=== PATIENT | female | born 1935 | race Hispanic/Latino ===

== ENCOUNTER 2017-04-10 14:33 | Emergency (ER) | payer MEDICAID, MEDICARE, OTHER ==
[2017-04-10 15:26] LABS: #Eosinphils 0.2 thou/uL (0.0-0.7); #Lymphocytes 1.3 thou/uL (1.20-3.40); #Monocytes 0.7 thou/uL (0.11-0.59); #Neutrophils 9.1 thou/uL (1.40-6.50); %Basophils 0.2 % (0.0-1.0); %Eosinophils 1.7 % (0.0-10.0); %Lymphocytes 11.4 % (21.0-51.0); %Monocytes 5.9 % (0.0-10.0); Hematocrit 35.8 % (36.0-47.0); Mean Platelet Volume 7.6 fL (7.4-10.4); Red Blood Cell (RBC) Count 3.94 mill/uL (4.20-5.40); White Blood Cell (WBC) Count 11.2 thou/uL (4.8-10.8)
[2017-04-10 15:46] LABS: ALT (SGPT) 13 U/L (8-55); AST (SGOT) 20 U/L (5-34); Alkaline Phosphatase 99 U/L (40-150); Anion Gap 13 mmol/L (10-20); BUN (Urea Nitrogen) 35 mg/dL (9.8-20.1); Bilirubin, Total 0.4 mg/dL (0.2-1.2); CK (CPK) 87 U/L (29-168); Calc. Creatinine Clearance 0 mL/min (70-130); Carbon Dioxide 30 mmol/L (23-31); Chloride 102 mmol/L (98-107); Estimated GFR-MDRD 27; Globulin 3.7 g/dL (2.4-3.5); Protein, Total 6.9 g/dL (6.0-8.3)
[2017-04-10 15:52] LABS: Acetaminophen Less than 6.0 mcg/mL (10.0-30.0); Salicylate Less than 8.0 mg/dL (15.0-30.0)
== END 2017-04-10 18:26 | disposition home or self-care (01) ==
LOC: ERS 14:33
DX: F34.1 Dysthymic disorder (principal); I11.0 Hypertensive heart disease with heart failure; I50.9 Heart failure, unspecified; E11.9 Type 2 diabetes mellitus without complications; E78.5 Hyperlipidemia, unspecified; Z79.4 Long term (current) use of insulin; Z79.899 Other long term (current) drug therapy; Z86.73 Personal history of transient ischemic attack (TIA), and cerebral infarction without residual deficits
CPT/HCPCS: 36415; 36416; 80053; 80307; 82550; 84443; 85025; 99285

== ENCOUNTER 2017-06-16 01:38 | Outpatient (CLI) | payer MEDICARE | END 2017-06-16 01:39 | disposition home or self-care (01) | LOC: BICULT 01:38 | PROVIDERS: ATTEND Family Medicine | DX: Z53.9 Procedure and treatment not carried out, unspecified reason (principal) ==

== ENCOUNTER 2017-10-20 19:59 | Emergency (ER) | payer MEDICARE ==
[2017-10-20 21:41] LABS: #Basophils 0.1 thou/uL (0.0-0.2); #Eosinphils 0.2 thou/uL (0.0-0.7); #Lymphocytes 1.2 thou/uL (1.20-3.40); #Monocytes 0.7 thou/uL (0.11-0.59); #Neutrophils 4.7 thou/uL (1.40-6.50); %Basophils 0.8 % (0.0-1.0); %Eosinophils 2.8 % (0.0-10.0); %Lymphocytes 17.4 % (21.0-51.0); %Monocytes 10.7 % (0.0-10.0); %Neutrophils 68.3 % (42.0-75.0); Hemoglobin 10.5 g/dL (12.0-16.0); Mean Corpuscular HGB CONC 32.7 g/dL (32.0-36.0); Mean Corpuscular Hemoglobin 30.4 pg (27.0-31.0); Mean Corpuscular Volume 92.9 fl (81.0-99.0); Mean Platelet Volume 7.7 fL (7.4-10.4); Platelet Count 216 thou/uL (130-400); RBC Distribution Width 12.6 % (11.5-14.5); Red Blood Cell (RBC) Count 3.46 mill/uL (4.20-5.40); White Blood Cell (WBC) Count 6.8 thou/uL (4.8-10.8)
[2017-10-20 22:05] LABS: ALT (SGPT) 14 U/L (8-55); AST (SGOT) 19 U/L (5-34); Albumin 3.2 g/dL (3.4-4.8); Alkaline Phosphatase 123 U/L (40-150); Anion Gap 13 mmol/L (10-20); BUN (Urea Nitrogen) 26 mg/dL (9.8-20.1); Bilirubin, Total 0.4 mg/dL (0.2-1.2); Calc. Creatinine Clearance 0 mL/min (70-130); Calcium 8.7 mg/dL (7.8-10.44); Carbon Dioxide 24 mmol/L (23-31); Chloride 102 mmol/L (98-107); Estimated GFR-MDRD 26; Globulin 3.1 g/dL (2.4-3.5); Glucose 428 mg/dL (83-110); Potassium 4.3 mmol/L (3.5-5.1); Protein, Total 6.3 g/dL (6.0-8.3); Sodium 135 mmol/L (136-145)
[2017-10-20 22:09] LABS: CKMB 1.5 ng/mL (0-6.6); Troponin I Less than 0.010 ng/mL (< 0.028)
[2017-10-20 22:18] LABS: Bilirubin Negative (Negative); Blood, Urine Negative (Negative); Clarity CLOUDY (Clear); Glucose, Urine (Dipstick) 500 mg/dL (Negative); Leukocyte Negative (Negative); Nitrite Negative (Negative); Protein, Urine (Dipstick) 100 mg/dL (Neg-Trace); Specific Gravity, Urine 1.017 (1.002-1.036); pH, Urine 5.5 (5.0-9.0)
[2017-10-20 22:20] LABS: Bacteria/HPF None Seen HPF (None Seen); Hyaline Casts/LPF 4-6 HYALINE CAST LPF (0-3 Hyaline); RBC/HPF 0-3 HPF (0-3)
[2017-10-20] MEDS ORDERED: Insulin Regular 300 UNITS/3 ML VIAL ONE (22:47)
[2017-10-20 22:53] LABS: INR-International Normal Ratio 1.1; Prothrombin Time 14.2 SEC (12.0-14.7)
--- NOTE | 2017-10-20 23:14 | CT ---
CT OF HEAD NONCONTRAST: 10/20/17 INDICATION: Fall with head injury. FINDINGS: There is no evidence of acute intracranial hemorrhage, mass effect or midline shift. Referencing exam. No significant interval detrimental change identified. IMPRESSION: No acute intracranial hemorrhage or mass effect. POS: [facility]
--- NOTE | 2017-10-20 23:34 | CT ---
CT ABDOMEN AND PELVIS NONCONTRAST 10/20/17 CLINICAL HISTORY: Urinary tract stone, pain. FINDINGS: There is no evidence of obstructive uropathy. Punctate density within the right kidney, too small to definitively characterize could reflect urinary tract calculus, otherwise, no discrete evidence for u rolithiasis. Urinary bladder is unopacified and decompressed. Prior cholecystectomy noted. There is e ventration of the ventral abdominal wall. Mild colonic diverticulosis. There is subcutaneous fat stra nding of the ventral abdomen indicative of edema. Correlate clinically. Mild volume loss and/or scarr ing present at the lung bases. There is diffuse osseous degenerative change. Vascular calcifications present. IMPRESSION: 1. Possible punctate, nonobstructing right nephrolithiasis. Otherwise no significant evidence fo r urinary tract calculi. 2. Evaluation otherwise limited on the basis of noncontrast technique. POS: [facility]
[2017-10-21] MEDS ORDERED: Ondansetron HCl/PF 4 MG/2 ML Vial ONE (02:26)
== END 2017-10-21 02:35 | disposition home or self-care (01) ==
LOC: ERS 19:59
DX: E11.65 Type 2 diabetes mellitus with hyperglycemia (principal); N39.0 Urinary tract infection, site not specified; I11.0 Hypertensive heart disease with heart failure; I50.9 Heart failure, unspecified; E78.5 Hyperlipidemia, unspecified; Z86.73 Personal history of transient ischemic attack (TIA), and cerebral infarction without residual deficits
CPT/HCPCS: 36415; 36416; 51701; 70450; 74176; 80053; 81003; 81015; 82553; 84443; 84484; 85025; 85610; 85730; 96361; 96374; A4353; J1815; J2405

== ENCOUNTER 2018-01-16 15:59 | Emergency (ER) | payer MEDICARE ==
--- NOTE | 2018-01-16 17:34 | CT ---
CT OF THE BRAIN WITHOUT CONTRAST: Date: 01/16/18 COMPARISON: 10/20/17. HISTORY: Fell off toilet while at home with head trauma. TECHNIQUE: Multiple contiguous axial images were obtained in a CT of the brain without contrast. FINDINGS: The brain is normal in morphology and attenuation without focal lesions or confluent areas of infarct ion. There is no evidence of hydrocephalus, intracranial hemorrhage, or extra-axial fluid collection. The calvarium and overlying soft tissues are unremarkable. The visualized paranasal sinuses and masto id air cells are well aerated. IMPRESSION: No evidence of acute intracranial abnormality. POS: [facility]
--- NOTE | 2018-01-16 17:36 | CT ---
CT OF THE CERVICAL SPINE WITHOUT CONTRAST: Date: 01/16/18 COMPARISON: None. HISTORY: Fell off toilet at home with head trauma and neck pain. TECHNIQUE: Multiple contiguous axial images were obtained in a CT of the cervical spine without contrast. Sagitt al and coronal reformats were performed. FINDINGS: There are moderate degenerative changes in the cervical spine. The vertebral bodies demonstrate sia l height and alignment without acute fracture or subluxation. No prevertebral soft tissue swelling is seen. The posterior facets are well aligned. Normal alignment of the skull base with the cervical spine is seen. There is pannus surrounding the odontoid process. Calcifications are seen in the carotid arteries. IMPRESSION: Degenerative changes of the cervical spine without acute osseous abnormality. POS: [facility]
--- NOTE | 2018-01-16 17:47 | CT ---
CT OF THE CHEST WITHOUT CONTRAST CT OF THE ABDOMEN AND PELVIS WITHOUT CONTRAST LIMITED CT OF THORACIC AND LUMBOSACRAL SPINES WITHOUT CONTRAST: Date: 01/16/18 HISTORY: Patient fell off toilet while at home against the bathtub. Patient complains of left flank and abdomi nal pain, and chest and back pain. TECHNIQUE: 1. Multiple contiguous axial images were obtained in a CT of the chest without contrast. Coronal ref ormats were performed. 2. Multiple contiguous axial images were obtained in a CT of the abdomen and pelvis without contrast . Coronal reformats were performed. 3. Limited CTs of the thoracic and lumbosacral spines were performed. Sagittal and coronal reformats were created base off of images obtained in the chest, abdomen, and pelvic CTs. FINDINGS: CT CHEST: The heart is normal in size. Calcifications are seen in the coronary arteries and aorta. No hilar or mediastinal lymphadenopathy are appreciated on this limited noncontrast examination. No pneumothorax or pleural effusions are seen. No focal infiltrates or masses are seen in the lungs. There are mildly displaced fractures of the left posterior 8th, 9th, and 10th ribs. No other rib frac tures are seen. The chest wall soft tissues are unremarkable. CT ABDOMEN/PELVIS: The patient is status post cholecystectomy and hysterectomy. The liver, kidneys, adrenal glands, sple en, and pancrease are unremarkable, although evaluation is limited on this noncontrast examination. N o free air, free fluid, or stranding changes are seen in the abdomen or pelvis. The large and small bowel are unremarkable. No abdominal or pelvic lymphadenopathy are seen. The bones of the pelvis are unremarkable. The abdominal wall soft tissues are unremarkable. LIMITED CT OF THORACIC AND LUMBOSACRAL SPINE: There are mild degenerative changes throughout the spine. Vertebral bodies demonstrate normal height and alignment without acute fracture or subluxation. IMPRESSION: 1. Left posterior 8th-10th rib fractures. 2. No evidence of significant intrathoracic abnormality. 3. No evidence of acute intra-abdominal/pelvic abnormality. 4. No evidence of acute osseous abnormality of the thoracic or lumbosacral spine. POS: [facility]
== END 2018-01-16 18:43 | disposition home or self-care (01) ==
LOC: ERS 15:59
DX: S22.42XA Multiple fractures of ribs, left side, initial encounter for closed fracture (principal); I50.9 Heart failure, unspecified; E11.9 Type 2 diabetes mellitus without complications; E78.5 Hyperlipidemia, unspecified; I10 Essential (primary) hypertension; W18.11XA Fall from or off toilet without subsequent striking against object, initial encounter; Y92.009 Unspecified place in unspecified non-institutional (private) residence as the place of occurrence of the external cause
CPT/HCPCS: 70450; 71250; 72125; 74177; 96374; J2270

== ENCOUNTER 2018-05-07 09:52 | Observation (INO) | payer MEDICARE ==
[2018-05-07 10:29] LABS: #Eosinphils 0.2 thou/uL (0.0-0.7); #Lymphocytes 1.2 thou/uL (1.20-3.40); #Monocytes 0.6 thou/uL (0.11-0.59); #Neutrophils 6.3 thou/uL (1.40-6.50); %Basophils 0.6 % (0.0-1.0); %Eosinophils 1.8 % (0.0-10.0); %Lymphocytes 14.2 % (21.0-51.0); %Monocytes 6.8 % (0.0-10.0); %Neutrophils 76.6 % (42.0-75.0); Hemoglobin 11.4 g/dL (12.0-16.0); Mean Corpuscular HGB CONC 30.7 g/dL (32.0-36.0); Mean Corpuscular Hemoglobin 28.5 pg (27.0-31.0); Mean Corpuscular Volume 92.9 fL (78.0-98.0); Mean Platelet Volume 7.9 fL (7.4-10.4); Platelet Count 288 thou/uL (130-400); RBC Distribution Width 13.9 % (11.5-14.5); Red Blood Cell (RBC) Count 4.01 mill/uL (4.20-5.40); White Blood Cell (WBC) Count 8.2 thou/uL (4.8-10.8)
[2018-05-07 10:45] LABS: Bilirubin Negative (Negative); Blood, Urine Moderate (Negative); Clarity TURBID (Clear); Glucose, Urine (Dipstick) Negative (Negative); Leukocyte Large (Negative); Nitrite Negative (Negative); Protein, Urine (Dipstick) 300 mg/dL (Neg-Trace); Specific Gravity, Urine 1.011 (1.002-1.036); Urobilinogen 0.2 mg/dL (0.2-1.0)
[2018-05-07 10:48] LABS: Bacteria/HPF 4+ HPF (None Seen); Hyaline Casts/LPF 4-6 HYALINE CAST LPF (0-3 Hyaline); Pathc Cast-AUWi Flag 2.08 (0-2.49); Squamous Epithelial 0-3 HPF (0-3)
[2018-05-07 10:49] LABS: Yeast-AUWi Flag 84.3 (0-25.0)
[2018-05-07 10:52] LABS: ALT (SGPT) 11 U/L (8-55); AST (SGOT) 18 U/L (5-34); Albumin 3.2 g/dL (3.4-4.8); Alkaline Phosphatase 115 U/L (40-150); Anion Gap 11 mmol/L (10-20); BUN (Urea Nitrogen) 41 mg/dL (9.8-20.1); Bilirubin, Total 0.4 mg/dL (0.2-1.2); Calc. Creatinine Clearance 0 mL/min (70-130); Calcium 9.3 mg/dL (7.8-10.44); Carbon Dioxide 24 mmol/L (23-31); Chloride 111 mmol/L (98-107); Estimated GFR-MDRD 28; Globulin 3.5 g/dL (2.4-3.5); Glucose 81 mg/dL (83-110); Potassium 4.3 mmol/L (3.5-5.1); Protein, Total 6.7 g/dL (6.0-8.3); Sodium 142 mmol/L (136-145)
[2018-05-07 10:56] LABS: CKMB 3.7 ng/mL (0-6.6); Troponin I Less than 0.010 ng/mL (< 0.028)
[2018-05-07 11:00] LABS: Yeast-All Forms Rare HPF (None Seen)
[2018-05-07] MEDS ORDERED: cefTRIAXone\\ROCEPHIN 2 GM VIAL ONE (12:11)
[2018-05-07] MEDS ORDERED: Acetaminophen 500 MG TAB ONE (12:39)
[2018-05-07] MEDS ORDERED: Ondansetron PF 4 MG/2 ML Vial IVP PRN (16:06)
[2018-05-07] MEDS ORDERED: Acetaminophen 325 MG TAB PO PRN ×2 (16:06→18:40)
[2018-05-07] MEDS ORDERED: Ondansetron ODT 4 MG TAB SL PRN (16:06)
[2018-05-07 16:37] VITALS: BMI 36.5
[2018-05-07] MEDS ORDERED: Insulin Regular 300 UNITS/3 ML VIAL SC PRN (18:38)
[2018-05-07] MEDS ORDERED: Dextrose 50% Abboject 50 ML SYRINGE IVP PRN (18:38)
[2018-05-07] MEDS ORDERED: Dextrose 5% in Water 1,000 ML IV PRN (18:38)
[2018-05-07] MEDS ORDERED: Insulin Glargine 30 UNITS in Pre-Filled Syringe SC SCH (18:45)
[2018-05-07] MEDS ORDERED: HumaLOG 300 UNITS/3 ML VIAL SC SCH (18:45)
[2018-05-07] MEDS: Lisinopril 10 MG TAB PO SCH (20:34)
[2018-05-07] MEDS: Carvedilol 25 MG TAB PO SCH (20:34)
[2018-05-07] MEDS: Rosuvastatin 10 MG TAB PO SCH (20:34)
[2018-05-07] MEDS: Gabapentin 400 MG CAP PO SCH (20:34)
[2018-05-08 05:40] LABS: Anion Gap 12 mmol/L (10-20); BUN (Urea Nitrogen) 43 mg/dL (9.8-20.1); Calc. Creatinine Clearance 31 mL/min (70-130); Carbon Dioxide 24 mmol/L (23-31); Cardiac Risk 3.7 (Less than 4.5); Chloride 110 mmol/L (98-107); Cholesterol 123 mg/dl (< 200 Desired); Estimated GFR-MDRD 24; Glucose 122 mg/dL (83-110); HDL Cholesterol 33 mg/dL (>60 Neg Risk); LDL Cholesterol, Calculated 71 mg/dL; Potassium 4.5 mmol/L (3.5-5.1); Sodium 141 mmol/L (136-145); Triglycerides 94 mg/dL (Less than 150)
[2018-05-08] MEDS ORDERED: Furosemide 40 MG TAB PO SCH (09:00)
[2018-05-08] MEDS: Carvedilol 25 MG TAB PO SCH ×2 (10:00→20:14)
[2018-05-08] MEDS: Clopidogrel Bisulfate 75 MG TAB PO SCH (10:00)
[2018-05-08] MEDS: Gabapentin 400 MG CAP PO SCH ×2 (10:02→20:14)
[2018-05-08] MEDS: Lisinopril 10 MG TAB PO SCH (10:02)
[2018-05-08] MEDS: Sodium Chloride 0.45% 1,000 ML IV SCH ×2 (11:56→20:26)
[2018-05-08] MEDS ORDERED: cefTRIAXone\\ROCEPHIN 1 GM in Sodium Chloride 0.9% 100 ML IVPB SCH (12:00)
[2018-05-08] MEDS ORDERED: INSULIN GLARGINE SC SCH (17:00)
[2018-05-08] MEDS ORDERED: PRE FILLED SC SCH (17:00)
[2018-05-08] MEDS: Rosuvastatin 10 MG TAB PO SCH (20:14)
[2018-05-08] MEDS ORDERED: Losartan 25 MG TAB PO SCH (21:00)
[2018-05-09] MEDS: Sodium Chloride 0.45% 1,000 ML IV SCH (03:54)
[2018-05-09 06:19] LABS: Anion Gap 9 mmol/L (10-20); BUN (Urea Nitrogen) 40 mg/dL (9.8-20.1); Calc. Creatinine Clearance 34 mL/min (70-130); Calcium 8.3 mg/dL (7.8-10.44); Carbon Dioxide 22 mmol/L (23-31); Chloride 111 mmol/L (98-107); Estimated GFR-MDRD 26; Glucose 92 mg/dL (83-110); Potassium 4.5 mmol/L (3.5-5.1); Sodium 137 mmol/L (136-145)
[2018-05-09] MEDS: Gabapentin 400 MG CAP PO SCH (09:13)
[2018-05-09] MEDS: Carvedilol 25 MG TAB PO SCH (09:14)
[2018-05-09] MEDS: Clopidogrel Bisulfate 75 MG TAB PO SCH (09:17)
[2018-05-09 09:24] VITALS: BP 167/73; TEMP 97.6
--- NOTE | 2018-05-09 09:56 | HP ---
CHIEF COMPLAINT: Hypoglycemic episode with syncope. HISTORY OF PRESENT ILLNESS: The patient is an 82-year-old female who was found by her family, uncons cious between the bed and nightstand at about 10:00 a.m. this morning, they called EMS. EMS arrived and the patient's blood sugar was 51. They gave her an amp of D50 and she quickly responded. The pa lito states that her only recollection is going to bed the night before and then waking up in the am bulance. The family members said they heard a big ka-thump in the bedroom. They were in another par t of the house when they went to check on her that is what they found. Her diabetes is actually hedy ged by Dr. Li. It is said that she possibly was on a sulfonamide, but I cannot find any sulfo namides in her medication. Her current medicines are Tresiba 36 every day. She was told to give her self 4 units for every 100 on her fingerstick at lunch and dinner; however, she freely admits that so metimes she gives herself 3 and sometimes she just split the difference and goes herself whatever in between and her medication was Prandin 4 mg to be taken her breakfast and lunch and she is not aware whether she actually takes these or not. She certainly had not had anything since the night before w hen this had occurred. She is placed in the hospital for management of her diabetes. Incidentally, they noted that she has had a urinary tract infection on urinary analysis, she has no symptoms. PAST MEDICAL HISTORY: Significant for hypertension, hyperlipidemia, congestive heart failure, periph eral neuropathy, GERD. 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 PSYCHIATRIC HISTORY: Negative. SOCIAL HISTORY: She lives with her children, son and daughter. Does not smoke and does not drink al coholic beverages. ALLERGIES: She has no known drug allergies. CURRENT MEDICATIONS: Her medications at the time of admission include carvedilol 25 mg tablet, she w as told to take 1/2 b.i.d.; lisinopril 10 mg b.i.d.; Crestor 40 mg at bedtime; potassium chloride 10 mEq, she takes 2 a day; Plavix 75 mg once a day; gabapentin 400 mg b.i.d.; tramadol 50 mg b.i.d. p.r. n. pain; amoxicillin 500 b.i.d., I do not know why, neither on the clarithromycin as listed as a medi cine that she is on and she does not know why; pantoprazole 40 mg once a day. She also has a prescri ption for [place] 5 to take p.r.n. pain. REVIEW OF SYSTEMS: At the time of admission constitutionally, she denies fever or chills, general ma laise. HEENT: Denies any blurred vision, pain in her ears, nose or throat or drainage from such. C hest: Denies shortness of breath or coughing. Cardiovascular: Denies palpitations or chest pain. Gastrointestinal: Denies nausea, vomiting, or diarrhea. Genitourinary: Denies dysuria, urinary soren quency, blood in urine or stool. Musculoskeletal: Has pain, arthritic in her knees. Otherwise, den ies pain in her muscles and joints. Skin: Denies any new rashes or lesions. Neurologic: Denies an y new areas of paresthesias. She has burning pain distally in her lower extremities, but this is old . No trouble with mentation, confusion. PHYSICAL EXAMINATION: At the time of admission: VITAL SIGNS: Blood pressure 157/62, pulse 65, respirations 18, temperature 97.7. Pain scale 0/10, O 2 sat 99% on room air. GENERAL: This is an elderly Latin-Swiss female, alert, oriented, and cooperative. HEENT: Normocephalic, atraumatic. Pupils are equal, round, and reactive to light with arcus senilis bilaterally, diminished reactivity noted at 2 mm a piece. TMs, nares, and pharynx are clear. NECK: Supple, trachea midline. No mass, no bruit. CHEST: Clear to auscultation. HEART: Regular rate and rhythm without murmur. BREASTS: Deferred. ABDOMEN: Soft, nontender, without organomegaly. GENITOURINARY: Deferred. EXTREMITIES: Without clubbing, cyanosis, or edema. Diminished range of motion is noted. Muscular w asting noted as well, it is all symmetrical. SKIN: No new rashes or lesions. NEUROLOGIC: She has peripheral neuropathy in lower extremities. Mentation is baseline with basicall y low IQ and poor memory. Cranial nerves are intact. Gait is unsteady, but present. Sensory exam i s grossly intact. Did not test cerebellar function or deep tendon reflexes. LABORATORY AND X-RAY FINDINGS: Lab work on admission showed WBCs 8.2, hemoglobin 11.4, hematocrit 37 .3 with platelets at 288,000. Sodium at 142, potassium 4.3, chloride 111, CO2 of 24, BUN at 41, crea tinine 1.75, GFR 28. Point of care glucose since observation has been 130, 81, 167 and the latest wa s about 239. Lactic acid 0.8. Liver functions unremarkable. CK-MB and troponins are negative. Uri nalysis shows moderate blood, large leukocyte esterase with wbc's at too numerous to count. ASSESSMENT: 1. Possible hypoglycemia. 2. Urinary tract infection. 3. Diabetes with noncompliance with medication and treatment. 4. Hypertension. PLAN: Plan will be to closely observe her blood sugars and adjust her medication, so that we do have recurrent hypoglycemia, serially reevaluate her, and put her on antibiotics for her urinary tract in fection.
== END 2018-05-09 11:56 | disposition home or self-care (01) ==
LOC: ERS 09:52 → ERHOLD 13:37 → 2NO 16:03
PROVIDERS: ADMIT Specialist; ATTEND Specialist
DX: E11.649 Type 2 diabetes mellitus with hypoglycemia without coma (principal); I11.0 Hypertensive heart disease with heart failure; E11.42 Type 2 diabetes mellitus with diabetic polyneuropathy; N39.0 Urinary tract infection, site not specified; N17.9 Acute kidney failure, unspecified; E78.5 Hyperlipidemia, unspecified; Z79.899 Other long term (current) drug therapy
CPT/HCPCS: 80048 ×2; 80053; 80061; 82553; 82962 ×3; 83036; 83605; 84484; 85025; 87040; 87077; 87086; 87149 ×2; 87186; 93005; 96361 ×3; 96374; 96376; 99285; G0378 ×2; 36415; 36416; 81003; 81015; 96365; J0696; J7050

== ENCOUNTER 2018-06-30 15:48 | Emergency (ER) | payer MEDICARE ==
[2018-06-30 17:01] LABS: #Eosinphils 0.1 thou/uL (0.0-0.7); #Lymphocytes 1.4 thou/uL (1.20-3.40); #Monocytes 0.6 thou/uL (0.11-0.59); #Neutrophils 7.4 thou/uL (1.40-6.50); %Basophils 0.2 % (0.0-1.0); %Eosinophils 1.5 % (0.0-10.0); %Lymphocytes 14.6 % (21.0-51.0); %Monocytes 5.8 % (0.0-10.0); %Neutrophils 77.8 % (42.0-75.0); Hemoglobin 10.8 g/dL (12.0-16.0); Mean Corpuscular Hemoglobin 28.9 pg (27.0-31.0); Mean Corpuscular Volume 90.4 fL (78.0-98.0); Mean Platelet Volume 7.6 fL (7.4-10.4); Platelet Count 315 thou/uL (130-400); RBC Distribution Width 12.9 % (11.5-14.5); Red Blood Cell (RBC) Count 3.74 mill/uL (4.20-5.40); White Blood Cell (WBC) Count 9.5 thou/uL (4.8-10.8)
[2018-06-30 17:40] LABS: ALT (SGPT) 10 U/L (8-55); AST (SGOT) 17 U/L (5-34); Alkaline Phosphatase 99 U/L (40-150); Anion Gap 13 mmol/L (10-20); BUN (Urea Nitrogen) 25 mg/dL (9.8-20.1); Bilirubin, Total 0.3 mg/dL (0.2-1.2); Calc. Creatinine Clearance 0 mL/min (70-130); Carbon Dioxide 25 mmol/L (23-31); Chloride 106 mmol/L (98-107); Estimated GFR-MDRD 33; Globulin 3.5 g/dL (2.4-3.5); Glucose 128 mg/dL (83-110); Potassium 3.7 mmol/L (3.5-5.1); Protein, Total 6.5 g/dL (6.0-8.3); Sodium 140 mmol/L (136-145)
--- NOTE | 2018-07-05 12:44 | EKG ---
Test Reason : Blood Pressure : / mmHG Vent. Rate : 054 BPM Atrial Rate : 054 BPM P-R Int : 154 ms QRS Dur : 100 ms QT Int : 480 ms P-R-T Axes : 052 -04 022 degrees QTc Int : 455 ms Sinus bradycardia with sinus arrhythmia RSR' or QR pattern in V1 suggests right ventricular conduction delay Borderline ECG Confirmed by KALEE GARIBAY DO ([id number]), videotape editor AMADOU AVALOS ([id number]) on 07/05/2018 12:43:49 PM Referred By: Confirmed By:KALEE GARIBAY DO
== END 2018-06-30 18:43 | disposition home or self-care (01) ==
LOC: ERS 15:48
DX: E11.649 Type 2 diabetes mellitus with hypoglycemia without coma (principal); E11.22 Type 2 diabetes mellitus with diabetic chronic kidney disease; I13.0 Hypertensive heart and chronic kidney disease with heart failure and stage 1 through stage 4 chronic kidney disease, or unspecified chronic kidney disease; N18.9 Chronic kidney disease, unspecified
CPT/HCPCS: 36415; 36416; 80053; 85025; 93005

== ENCOUNTER 2018-09-22 11:41 | Emergency (ER) | payer MEDICARE ==
[2018-09-22 12:12] LABS: #Eosinphils 0.3 thou/uL (0.0-0.7); #Lymphocytes 1.4 thou/uL (1.20-3.40); #Monocytes 0.6 thou/uL (0.11-0.59); #Neutrophils 3.5 thou/uL (1.40-6.50); %Basophils 0.6 % (0.0-1.0); %Eosinophils 5.6 % (0.0-10.0); %Lymphocytes 24.3 % (21.0-51.0); %Monocytes 10.6 % (0.0-10.0); %Neutrophils 58.9 % (42.0-75.0); Hemoglobin 10.1 g/dL (12.0-16.0); Mean Corpuscular HGB CONC 31.6 g/dL (32.0-36.0); Mean Corpuscular Hemoglobin 28.7 pg (27.0-31.0); Mean Corpuscular Volume 90.8 fL (78.0-98.0); Mean Platelet Volume 7.5 fL (7.4-10.4); Platelet Count 234 thou/uL (130-400); RBC Distribution Width 13.2 % (11.5-14.5); Red Blood Cell (RBC) Count 3.51 mill/uL (4.20-5.40); White Blood Cell (WBC) Count 5.9 thou/uL (4.8-10.8)
[2018-09-22 12:35] LABS: ALT (SGPT) 16 U/L (8-55); AST (SGOT) 22 U/L (5-34); Albumin 2.9 g/dL (3.4-4.8); Alkaline Phosphatase 101 U/L (40-150); Anion Gap 9 mmol/L (10-20); BUN (Urea Nitrogen) 39 mg/dL (9.8-20.1); Bilirubin, Total 0.3 mg/dL (0.2-1.2); Calc. Creatinine Clearance 0 mL/min (70-130); Calcium 8.7 mg/dL (7.8-10.44); Carbon Dioxide 28 mmol/L (23-31); Chloride 105 mmol/L (98-107); Estimated GFR-MDRD 22; Glucose 332 mg/dL (83-110); Lipase 10 U/L (8-78); Potassium 4.4 mmol/L (3.5-5.1); Protein, Total 5.9 g/dL (6.0-8.3); Sodium 138 mmol/L (136-145)
--- NOTE | 2018-09-22 13:29 | CT ---
CT ABDOMEN AND PELVIS WITHOUT CONTRAST: 09/22/2018 PROVIDED CLINICAL HISTORY: Abdominal pain. COMPARISON: 01/16/2018 FINDINGS: The visualized lung bases are free of significant opacity. Multiple remote, healed left posterior ri b fractures are demonstrated. There is prominence of the common duct and intrahepatic biliary system, similar to the prior examinat ion and likely on the basis of patient age and post cholecystectomy status. The solid abdominal orga ns are suboptimally evaluated in the absence of IV contrast material but demonstrate an otherwise unr emarkable unenhanced CT appearance. There is no evidence for urinary tract calculi or hydronephrosis . No bowel dilatation, inflammatory fat stranding, free fluid, or free air apparent. The appendix is n ot distinctly identified. Changes of a prior hysterectomy are noted. Vascular calcification is seen involving the abdominal ao rta and its branches. The osseous structures demonstrate no concerning osteoblastic or osteolytic lesions. Degenerative ch anges are seen. IMPRESSION: No evidence for an acute process. POS: [facility]
[2018-09-22 13:47] LABS: Bilirubin Negative (Negative); Blood, Urine Trace (Negative); Clarity CLEAR (Clear); Glucose, Urine (Dipstick) 250 mg/dL (Negative); Leukocyte Negative (Negative); Nitrite Negative (Negative); Protein, Urine (Dipstick) 100 mg/dL (Neg-Trace); Specific Gravity, Urine 1.008 (1.002-1.036); Urobilinogen 0.2 mg/dL (0.2-1.0); pH, Urine 6.5 (5.0-9.0)
[2018-09-22 13:49] LABS: Bacteria/HPF None Seen HPF (None Seen); Hyaline Casts/LPF 4-6 HYALINE CAST LPF (0-3 Hyaline); Pathc Cast-AUWi Flag 1.08 (0-2.49); RBC/HPF 0-3 HPF (0-3); Squamous Epithelial 0-3 HPF (0-3); WBC/HPF 0-3 HPF (0-3)
== END 2018-09-22 14:39 | disposition home or self-care (01) ==
LOC: ERS 11:41
DX: N17.9 Acute kidney failure, unspecified (principal); R10.13 Epigastric pain; R10.11 Right upper quadrant pain; I11.0 Hypertensive heart disease with heart failure; I50.9 Heart failure, unspecified; E78.5 Hyperlipidemia, unspecified; Z79.899 Other long term (current) drug therapy
CPT/HCPCS: 36415; 74176; 80053; 81003; 81015; 83690; 85025; 96360

== ENCOUNTER 2018-10-12 09:47 | Outpatient (CLI) | payer MEDICARE ==
--- NOTE | 2018-10-12 10:45 | RAD ---
FExam:Left hand 3 views HISTORY: Pain COMPARISON: None FINDINGS: Multi focal arthritic change with loss of joint space height, erosion, gullwing deformities . Correlate for erosive osteoarthritis. No fracture. Diffuse bony mineralization IMPRESSION: Multifocal osteoarthritis
--- NOTE | 2018-10-12 10:48 | RAD ---
F2 views of left forearm: 10/12/2018 COMPARISON: None HISTORY: Fall, pain FINDINGS: There is atherosclerotic calcification overlying the soft tissues of the left forearm. Chondrocalcinosis in the region of the triangular fibrocartilage complex noted. Radiocarpal joint space narrowing noted. No displaced fracture or evidence of dislocation is seen. IMPRESSION: No acute osseous abnormality.
--- NOTE | 2018-10-12 10:52 | RAD ---
F3 views left shoulder: 10/12/2018 COMPARISON: None HISTORY: Fall, trauma, pain FINDINGS: There is an old proximal left humerus fracture, similar when compared to prior chest radiog raph performed 12/30/2012. There is no widening of the acromioclavicular or coracoclavicular interspac e. Mild degenerative change of the left acromioclavicular joint noted. There is chondrocalcinosis and /or calcific tendinosis superior to the left humeral head. No acute fracture or dislocation. IMPRESSION: Chronic findings as detailed above. No acute fracture or dislocation.
== END 2018-10-12 09:48 | disposition home or self-care (01) ==
LOC: BICRAD 09:47
PROVIDERS: ATTEND Specialist
DX: M25.532 Pain in left wrist (principal); M25.512 Pain in left shoulder; M19.042 Primary osteoarthritis, left hand; Z87.81 Personal history of (healed) traumatic fracture; M19.012 Primary osteoarthritis, left shoulder

== ENCOUNTER 2018-12-07 05:13 | Emergency (ER) | payer MEDICARE ==
[2018-12-07 05:58] LABS: #Eosinphils 0.2 thou/uL (0.0-0.7); #Lymphocytes 1.1 thou/uL (1.20-3.40); #Monocytes 0.5 thou/uL (0.11-0.59); #Neutrophils 4.7 thou/uL (1.40-6.50); %Basophils 0.2 % (0.0-1.0); %Eosinophils 2.6 % (0.0-10.0); %Lymphocytes 16.4 % (21.0-51.0); %Neutrophils 73.8 % (42.0-75.0); Hemoglobin 10.6 g/dL (12.0-16.0); Mean Corpuscular HGB CONC 31.7 g/dL (32.0-36.0); Mean Corpuscular Hemoglobin 28.8 pg (27.0-31.0); Mean Corpuscular Volume 90.8 fL (78.0-98.0); Mean Platelet Volume 7.9 fL (7.4-10.4); Platelet Count 296 thou/uL (130-400); RBC Distribution Width 13.7 % (11.5-14.5); Red Blood Cell (RBC) Count 3.67 mill/uL (4.20-5.40); White Blood Cell (WBC) Count 6.4 thou/uL (4.8-10.8)
[2018-12-07 06:18] LABS: ALT (SGPT) 15 U/L (8-55); AST (SGOT) 25 U/L (5-34); Alkaline Phosphatase 102 U/L (40-150); Anion Gap 13 mmol/L (10-20); BUN (Urea Nitrogen) 28 mg/dL (9.8-20.1); Bilirubin, Total 0.4 mg/dL (0.2-1.2); Calc. Creatinine Clearance 0 mL/min (70-130); Calcium 8.8 mg/dL (7.8-10.44); Carbon Dioxide 24 mmol/L (23-31); Chloride 108 mmol/L (98-107); Estimated GFR-MDRD 29; Globulin 2.9 g/dL (2.4-3.5); Glucose 132 mg/dL (83-110); Potassium 4.2 mmol/L (3.5-5.1); Protein, Total 5.9 g/dL (6.0-8.3); Sodium 141 mmol/L (136-145)
--- NOTE | 2018-12-07 08:05 | CT ---
CT BRAIN WITHOUT CONTRAST: INDICATION: History of fall out of bed this morning with head injury. COMPARISON: Prior exam dated 01/16/2018. FINDINGS: No acute infarct, hemorrhage, or hydrocephalus is present. Mild chronic small-vessel white matter is chemic change is stable. Septum pellucidum and third ventricle are midline. Mastoid air cells and v isualized paranasal sinuses are clear. The skull is intact. IMPRESSION: No acute intracranial abnormality. POS: [facility]
--- NOTE | 2018-12-07 08:17 | CT ---
CT CERVICAL SPINE WITHOUT CONTRAST: INDICATION: Fall with neck injury. COMPARISON: Prior exam dated 01/16/2018. FINDINGS: There is cerumen buildup that is partially calcified within the right external auditory canal. There is diffuse osteopenia. There is moderate multilevel spondylosis of the cervical spine. Osseous cent ral canal appears relatively well preserved. Prevertebral soft tissues are normal appearing. Cranio cervical junctions are normal appearing. Lung apices are clear. IMPRESSION: 1. No acute osseous abnormality. 2. Cerumen buildup within the right external auditory canal that is partially calcified. Recommend direct visualization. POS: [facility]
== END 2018-12-07 09:18 | disposition home or self-care (01) ==
LOC: ERS 05:13
DX: E11.649 Type 2 diabetes mellitus with hypoglycemia without coma (principal); E78.5 Hyperlipidemia, unspecified; I10 Essential (primary) hypertension; Z79.899 Other long term (current) drug therapy; Z79.4 Long term (current) use of insulin
CPT/HCPCS: 36415; 36416; 70450; 72125; 80053; 84484; 85025; 93005

== ENCOUNTER 2018-12-10 11:17 | Emergency (ER) | payer MEDICARE ==
[2018-12-10 12:02] LABS: #Eosinphils 0.2 thou/uL (0.0-0.7); #Lymphocytes 1.4 thou/uL (1.20-3.40); #Monocytes 0.6 thou/uL (0.11-0.59); #Neutrophils 4.8 thou/uL (1.40-6.50); %Basophils 0.4 % (0.0-1.0); %Lymphocytes 19.4 % (21.0-51.0); %Monocytes 8.1 % (0.0-10.0); Hemoglobin 10.5 g/dL (12.0-16.0); Mean Corpuscular HGB CONC 32.1 g/dL (32.0-36.0); Mean Corpuscular Hemoglobin 29.1 pg (27.0-31.0); Mean Corpuscular Volume 90.6 fL (78.0-98.0); Platelet Count 291 thou/uL (130-400)
[2018-12-10 12:23] LABS: Anion Gap 10 mmol/L (10-20); BUN (Urea Nitrogen) 34 mg/dL (9.8-20.1); Calc. Creatinine Clearance 0 mL/min (70-130); Calcium 8.7 mg/dL (7.8-10.44); Carbon Dioxide 28 mmol/L (23-31); Chloride 106 mmol/L (98-107); Estimated GFR-MDRD 25; Glucose 205 mg/dL (83-110); Potassium 4.4 mmol/L (3.5-5.1); Sodium 140 mmol/L (136-145)
== END 2018-12-10 13:04 | disposition home or self-care (01) ==
LOC: ERS 11:17
DX: E11.65 Type 2 diabetes mellitus with hyperglycemia (principal); I13.0 Hypertensive heart and chronic kidney disease with heart failure and stage 1 through stage 4 chronic kidney disease, or unspecified chronic kidney disease; I50.9 Heart failure, unspecified; N18.9 Chronic kidney disease, unspecified; E78.5 Hyperlipidemia, unspecified; Z79.891 Long term (current) use of opiate analgesic; Z79.899 Other long term (current) drug therapy; Z79.4 Long term (current) use of insulin
CPT/HCPCS: 36415; 36416; 80048; 85025; 99283

== ENCOUNTER 2019-05-08 09:41 | Outpatient (CLI) | payer MEDICARE ==
--- NOTE | 2019-05-08 10:53 | MMO ---
Bilateral MAMMO Bilat Diag [facility]+GEORGE. CLINICAL HISTORY: Patient is 83 years old and is seen for diagnostic exam. The patient has no family history of breast cancer. The patient has no personal history of cancer. VIEWS: The views performed were: bilateral craniocaudal with tomosynthesis; bilateral mediolateral oblique with tomosynthesis; and bilateral mediolateral with tomosynthesis. FILMS COMPARED: The present examination has been compared to prior imaging studies performed at [facility] on 09/15/2010, 10/06/2011, 10/13/2012 and 10/16/2013. This study has been interpreted with the assistance of computer-aided detection. MAMMOGRAM FINDINGS: There are scattered fibroglandular densities. There are stable vascular calcifications seen in both breasts. There are no suspicious masses, suspicious calcifications, or new areas of architectural distortion. IMPRESSION: THERE IS NO MAMMOGRAPHIC EVIDENCE OF MALIGNANCY. A ROUTINE FOLLOW-UP MAMMOGRAM IN 1 YEAR IS RECOMMENDED. THE RESULTS OF THIS EXAM WERE SENT TO THE PATIENT. ACR BI-RADS Category 2 - Benign finding MAMMOGRAPHY NOTE: 1. A negative mammogram report should not delay a biopsy if a dominant of clinically suspicious mass is present. 2. Approximately 10% to 15% of breast cancers are not detected by mammography. 3. Adenosis and dense breasts may obscure an underlying neoplasm. Reported by: FABI PUCKETT MD Electonically Signed: [id number]
== END 2019-05-08 09:42 | disposition home or self-care (01) ==
LOC: BICMAMMO 09:41
PROVIDERS: ATTEND Specialist
DX: N64.4 Mastodynia (principal)
CPT/HCPCS: 77066; G0279

== ENCOUNTER 2019-08-10 09:38 | Inpatient (IN) | payer MEDICARE ==
--- NOTE | 2019-08-10 10:16 | RAD ---
PORTABLE CHEST: HISTORY: Cough. COMPARISON: Film from 2016. FINDINGS: Mild cardiomegaly. Mild vascular engorgement. Evidence of spinal effusions and mild bibasilar atele ctasis. No focal infiltrate or consolidation. POS: [facility]
[2019-08-10 10:17] LABS: #Basophils 0.1 thou/uL (0.0-0.2); #Eosinphils 0.2 thou/uL (0.0-0.7); #Lymphocytes 1.4 thou/uL (1.20-3.40); #Neutrophils 5.1 thou/uL (1.40-6.50); %Basophils 1.1 % (0.0-1.0); %Eosinophils 2.7 % (0.0-10.0); %Monocytes 12.4 % (0.0-10.0); %Neutrophils 65.8 % (42.0-75.0); Hemoglobin 9.2 g/dL (12.0-16.0); Mean Corpuscular HGB CONC 31.4 g/dL (32.0-36.0); Mean Corpuscular Volume 95.6 fL (78.0-98.0); Mean Platelet Volume 8.6 fL (7.4-10.4); Platelet Count 261 thou/uL (130-400); RBC Distribution Width 13.4 % (11.5-14.5); Red Blood Cell (RBC) Count 3.08 mill/uL (4.20-5.40); White Blood Cell (WBC) Count 7.8 thou/uL (4.8-10.8)
[2019-08-10 10:34] LABS: ALT (SGPT) 24 U/L (8-55); AST (SGOT) 22 U/L (5-34); Alkaline Phosphatase 105 U/L (40-110); Anion Gap 13 mmol/L (10-20); BUN (Urea Nitrogen) 62 mg/dL (9.8-20.1); Bilirubin, Total 0.3 mg/dL (0.2-1.2); CK (CPK) 272 U/L (29-168); Calc. Creatinine Clearance 0 mL/min (70-130); Carbon Dioxide 21 mmol/L (23-31); Chloride 111 mmol/L (98-107); Estimated GFR-MDRD 13; Globulin 3.2 g/dL (2.4-3.5); Glucose 210 mg/dL (83-110); Lipase 29 U/L (8-78); Magnesium 2.1 mg/dL (1.6-2.6); Protein, Total 6.2 g/dL (6.0-8.3); Sodium 138 mmol/L (136-145)
[2019-08-10 10:40] LABS: Potassium 7.4 mmol/L (3.5-5.1)
[2019-08-10] MEDS ORDERED: Dextrose 50% Abboject 50 ML SYRINGE ONE ×3 (10:46→16:37)
[2019-08-10] MEDS ORDERED: Calcium Chloride 1 GM/10 ML Abboject SYRINGE ONE (10:46)
[2019-08-10] MEDS ORDERED: Insulin Regular 300 UNITS/3 ML VIAL ONE (10:46)
[2019-08-10] MEDS ORDERED: Sodium Bicarb 50 MEQ/50 ML VIAL ONE (11:40)
[2019-08-10] MEDS ORDERED: Activated Charcoal/Sorbitol 25 GM/120 ML TUBE ONE (12:15)
[2019-08-10] MEDS ORDERED: Albuterol Sulfate 2.5 mg/3 ml Neb ONE (12:17)
[2019-08-10] MEDS ORDERED: Furosemide 40 MG TAB ONE (12:40)
[2019-08-10] MEDS ORDERED: Furosemide 40 MG/4 ML VIAL ONE (12:43)
--- NOTE | 2019-08-10 13:45 | CON ---
DATE OF CONSULTATION: 08/10/2019 SERVICE: Nephrology. REASON FOR CONSULTATION: Hyperkalemia and acute renal failure. REQUESTING PHYSICIAN: Dr. Garibay. HISTORY OF PRESENT ILLNESS: An 84-year-old female, [place] [facility] resident with past medical history significant for CKD, congestive heart failure, type 2 diabetes, who was brought in from the [place] [facility] for evaluation of abnormal lab. The patient reportedly was found to have elevated potassium of 6.7 on lab done in the [place] [facility]. She also reported shortness of breath that started earlier today. She also reported feeling unwell since yesterday, but was unable to pinpoint exactly what she means by being unwell. She, however, denied vomiting, but admitted to nausea. She denied chest pain, fever, chills, or rigor. She admitted to chronic bilateral leg edema. She also denied worsening cough or focal weakness. Further evaluation here in the ER showed potassium of 7.4 and BUN of 62 with creatinine of 3.37. The patient received dextrose with insulin as well as calcium gluconate. Review of medical records showed that the patient is on losartan, lisinopril, and potassium supplementation in the [place] [facility]. PAST MEDICAL HISTORY: 1. Hypertension. 2. Hyperlipidemia. 3. Congestive heart failure. 4. Peripheral neuropathy. 5. Diabetes mellitus. 6. Gastroesophageal reflux disease. PAST SURGICAL HISTORY: 1. Appendectomy. 2. Right hand surgery. 3. Intraabdominal mass/paragastric mass resection. 4. Hysterectomy. FAMILY HISTORY: Reviewed, but noncontributory. SOCIAL HISTORY: The patient lives in a [place] [facility]. Denied smoking, alcohol, or recreational drug use. ALLERGIES: NO KNOWN DRUG ALLERGIES REPORTED. MEDICATIONS: 1. Acetaminophen 325 mg daily as needed for pain. 2. Amlodipine 10 mg p.o. daily. 3. Carvedilol 12.5 mg p.o. b.i.d. 4. Chlorzoxazone 500 mg q.i.d. 5. Plavix 75 mg p.o. daily. 6. Dicyclomine 20 mg every 8 hours as needed for abdominal pain. 7. Lasix 20 mg daily. 8. Gabapentin 400 mg b.i.d. 9. Sliding scale Humalog. 10. Hydralazine 50 mg t.i.d. 11. Lisinopril 20 mg b.i.d. 12. Loperamide one tablet as needed for diarrhea. 13. Losartan 25 mg p.o. daily. 14. Potassium chloride 20 mEq daily. 15. Crestor 10 mg p.o. daily. 16. Tresiba 28 units subcutaneously daily. REVIEW OF SYSTEMS: A 12-point review of systems performed was negative other than pertinent positives and negatives included in the history of present illness. PHYSICAL EXAMINATION: VITAL SIGNS: Temperature 97, pulse 68, respiratory rate 12, SpO2 of 96% on room air, and blood pressure is 103/48. GENERAL: Elderly female, in no obvious distress. Afebrile. Anicteric. Acyanotic. HEENT: Normocephalic, atraumatic. Oral mucosa is moist. Mild puffiness of the face with periorbital swelling noted. NECK: Mild JVD noted. Neck is supple. CARDIOVASCULAR: Regular rhythm and rate with normal heart sounds one and two. RESPIRATORY: Fair air entry bilaterally with few bibasilar crackles and some transmitted breath sounds, but no rhonchi or use of accessory muscles. GI: Abdomen is enlarged, soft, nontender, nondistended with normal bowel sounds. EXTREMITIES: [id number] bilateral leg edema noted. No erythema appreciated. 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 The patient moves all extremities. Some memory lapses noted. DIAGNOSTIC DATA: CBC showed WBC count of 7.8, hemoglobin of 9.2, MCV of 95.6, and platelets of 261. Chemistry showed sodium 138, potassium 7.4, chloride 111, CO2 of 21, BUN 62, creatinine 3.37, glucose 210, calcium 8.0, magnesium 2.1, total bilirubin 0.3, AST 22, ALT 24, alkaline phosphatase 105, total protein 6.2, albumin 3.0, and globulin 3.2. Initial cardiac enzymes showed CK 272 and troponin 0.015. BNP 322.9. Lipase is 29. Review of medical records showed that the patient had a creatinine of 1.95 on December 10, 2018, and baseline creatinine ranges from 1.8 to 2.0 in the last 2 years. EKG: Showed normal sinus rhythm with rate of 64. No obvious ischemic changes or T-wave abnormality was noted. Chest x-ray showed mild cardiomegaly with mild vascular engorgement as well as evidence of pleural effusion and mild bibasilar atelectasis. No focal infiltrate or consolidation was noted. ASSESSMENT: 1. Severe hyperkalemia with potassium of 7.4: This is multifactorial due to potassium supplementation in a patient taking double RAAS yrn of lisinopril and losartan and with chronic kidney disease. Potassium was 6.7 earlier today, but has jumped up to 7.4 on repeat labs. 2. Acute on chronic renal failure: The patient had creatinine of 1.95 in December 2018. This most likely due to progression of chronic kidney disease as well as cardiorenal related to acute cardiac decompensation. Worsening renal function also is contributory. 3. Acute cardiac decompensation given edema and some congestion noticed on chest x-ray. 4. Hypertension: The patient has history of hypertension, but blood pressure currently is on the soft side. 5. Diabetes mellitus. This is complicated given history of nephropathy, peripheral neuropathy, and vascular disease. 6. Coronary artery disease. 7. Chronic pain. PLAN: The patient has received calcium gluconate, insulin with dextrose, as well as albuterol nebulization. We will give Kayexalate 30 g as well as 80 mg of IV Lasix. We will recheck BMP in 4 hours. If potassium is still high, we will plan on doing hemodialysis urgently. I have discussed dialysis with this patient, and she is in agreement. We will re-evaluate the patient with repeat labs and will go from there. We will also get bilateral renal ultrasound, urine electrolytes, and echocardiogram to assess cardiac function. Further treatment as per primary attending. Many thanks for involving us in the care of this patient. We will follow along with you. We will also hold all antihypertensives and nephrotoxic agents. Job ID: [id number]
--- NOTE | 2019-08-10 14:10 | ULT ---
ULTRASOUND RETROPERITONEUM COMPLETE: (RENAL) DATE: 08/10/2019. HISTORY: An 84-year-old female with renal failure. FINDINGS: Right kidney: 11 x 5 x 4.5 cm. Left kidney: 11 x 4.5 x 4.5 cm. Bilateral renal parenchymal echogenicity is diffusely increased consistent with medical renal disease . No hydronephrosis. No moderate size or large solid or cystic renal mass identified (visualization of renal parenchyma is limited because of patient's limited mobility). Prevoid urinary bladder volume 330 mL. Nonspecific mild mural thickening of the urinary bladder. IMPRESSION: 1. Evidence for chronic medical renal disease. 2. No hydronephrosis. AGUSTÍN William POS: [facility]
[2019-08-10 14:18] LABS: Bacteria/HPF 2+ HPF (None Seen); Bilirubin Negative (Negative); Blood, Urine Negative (Negative); Clarity Clear (Clear); Glucose, Urine (Dipstick) Normal (Negative); Leukocyte Negative Leu/uL (Negative); Nitrite Negative (Negative); Protein, Urine (Dipstick) 100 mg/dL (Neg-Trace); RBC/HPF 0-3 HPF (0-3); Squamous Epithelial None Seen HPF (0-3); Urobilinogen Normal mg/dL (Less than 2)
[2019-08-10 16:43] LABS: Anion Gap 15 mmol/L (10-20); BUN (Urea Nitrogen) 62 mg/dL (9.8-20.1); Calc. Creatinine Clearance 0 mL/min (70-130); Carbon Dioxide 22 mmol/L (23-31); Chloride 114 mmol/L (98-107); Estimated GFR-MDRD 13; Sodium 144 mmol/L (136-145)
[2019-08-10 16:48] LABS: Glucose 33 mg/dL (83-110); Potassium 6.7 mmol/L (3.5-5.1)
[2019-08-10] MEDS ORDERED: Sodium Bicarbonate 150 MEQ in Dextrose 5% in Water 1,000 ML IV SCH (17:00)
[2019-08-10] MEDS ORDERED: Ondansetron ODT 4 MG TAB SL PRN (17:05)
[2019-08-10] MEDS ORDERED: Ondansetron PF 4 MG/2 ML Vial IVP PRN (17:05)
[2019-08-10] MEDS ORDERED: Furosemide 20 MG/2 ML VIAL SLOW IVP SCH (18:45)
[2019-08-10 19:08] LABS: Creatinine, Urine 30.78 mg/dL (47-110)
[2019-08-10 19:46] LABS: Analyzer IN Cardio ER
[2019-08-10 20:00] LABS: Puncture Site LRA
[2019-08-10 20:02] LABS: O2 Tension (PaO2) 89.5 mmHg (> 60.0)
[2019-08-10 20:03] LABS: Hemoglobin (Hb) 9.7 g/dL (12.0-16.0)
[2019-08-10 20:04] LABS: Calcium, Ionized 1.19 mmol/L (1.12-1.30); Potassium - ABG Lab 6.24 mmol/L (3.70-5.30)
[2019-08-10] MEDS: Dextrose 5% in Water 1,000 ML IV SCH (20:47)
--- NOTE | 2019-08-10 21:05 | HP ---
CHIEF COMPLAINT ON ADMISSION: Hyperkalemia and acute renal injury. HISTORY OF PRESENT ILLNESS: The patient is an 84-year-old custodial patient of [facility], who on routine lab screening was found to have a potassium level of 7.6. At this point, the patient was transferred to [facility] Emergency Room for further evaluation. The patient arrived, alert, responsive, conversive and aggressive therapy was then begun with neb treatments, insulin therapy, and oral Kayexalate. Dr. Vázquez saw the patient in Nephrology consultation since her BUN was 63 and her creatinine was 3.89. This is an acute change from her last recheck of 1.9 in mid June. It is noted from the history that the medication in the transfer from hospital to the [facility] had gotten confused and she was inadvertently put on an ARB and an ERIC as well as taking potassium supplementation, this will be corrected immediately. Dr. Fox was contacted for admission and she will be placed in IMCU for further aggressive care to lower her potassium and monitor her heart rate and vital signs. Currently, her EKG is unchanged from baseline. PAST MEDICAL HISTORY: Significant for general medical noncompliance with medication. The patient has had progressive mild dementia making correct medication changes very difficult. Her family has finally stepped in and was told that should she not be placed in an extensive care environment, Adult Protective Services would be called and instead the patient has been able to place her in [facility]. Other medical problems include hypertension, hyperlipidemia, congestive heart failure, peripheral neuropathy, and GERD. PAST SURGICAL HISTORY: Includes an appendectomy, right hand surgery. A tumor was removed from the right side of her stomach and hysterectomy. PSYCHIATRIC HISTORY: Negative. SOCIAL HISTORY: She is , now is a custodial patient at [facility]. She does not smoke or drink alcoholic beverages. ALLERGIES: SHE HAS NO KNOWN DRUG ALLERGIES. MEDICATIONS: Her correct medications going into [facility] were: 1. Acetaminophen p.r.n. arthritic pain 325 mg. 2. Amlodipine 5 mg daily. 3. Carvedilol 12.5 mg b.i.d. 4. Chlorzoxazone 500 mg p.r.n. muscle spasms. 5. Plavix 75 mg daily. 6. Dicyclomine 20 mg p.r.n. abdominal cramps. Furosemide 40 mg daily. 7. Gabapentin 400 mg once daily. 8. Hydralazine 25 mg t.i.d. 9. Tresiba 28 units subcu daily. 10. Lisinopril 20 mg p.o. daily. 11. Potassium 20 mEq once daily. 12. Crestor 10 mg daily. REVIEW OF SYSTEMS: At this time is unobtainable due to patient being neurologically poorly responsive. Her previous blood sugar was just checked at 33 and 37. D50 was given to the patient and her last blood sugar now is 157, but she is not able to give a good history. It was limited due to her dementia anyway. PHYSICAL EXAMINATION AT THE TIME OF ADMISSION: VITAL SIGNS: Temperature is 98.2, pulse 69, respirations 14, blood pressure 106/44, O2 saturation 97% on 2 L. GENERAL: This is an elderly Latin-Bangladeshi female, obese, poorly responsive. HEENT: Normocephalic, atraumatic. Pupils at 3-4 mm each, responsive to light. Pharynx appears dry. NECK: Supple. CHEST: Clear to auscultation. HEART: Regular rate and rhythm. ABDOMEN: Obese, unable to appreciate organomegaly. : Normal external female genitalia. EXTREMITIES: Without clubbing, cyanosis, or edema. SKIN: Without acute lesions. NEUROLOGIC: Unable to test gait and cerebellar function. The patient not responsive to verbal stimuli, but she will resist examination. LABORATORY DATA: Lab work thus far, WBC 7.8, hemoglobin 9.2, hematocrit 29.5, platelets at 261. The sodium has been 138, 144, the potassium has gone from 7.4 down to 6.7, chloride 114, BUN is at 62, creatinine 3.37, improved to 3.29. GFR is at 13. Glucose initially was at 210 dropped to 33 and 37 and last fingerstick was 157. The calcium is 8, magnesium 2. Liver functions unremarkable. Troponins negative. BNP slightly elevated at 322.9. Urinalysis shows 7-10 wbcs. IMAGING: Chest x-ray shows mild cardiomegaly with mild effusion, no acute findings. The renal ultrasound shows evidence of chronic medical renal disease, but no hydronephrosis. ASSESSMENT: 1. Hyperkalemia. 2. Acute renal injury. 3. Insulin-dependent diabetic, noncompliant. 4. Hypertension-patient noncompliant. 5. Hyperlipidemia. PLAN: The patient is being transferred to [facility] where we will continue to lower her potassium with Lasix, neb treatments. Sodium bicarbonate has been ordered by Dr. Vázquez, who is seeing the patient in consultation and we will serially re-evaluate her and closely monitor her blood sugar. We will probably not use insulin as a lowering agent until she is stabilized. Job ID: [id number]
[2019-08-10 21:26] LABS: Anion Gap 13 mmol/L (10-20); BUN (Urea Nitrogen) 62 mg/dL (9.8-20.1); Calc. Creatinine Clearance 19 mL/min (70-130); Calcium 8.4 mg/dL (7.8-10.44); Carbon Dioxide 21 mmol/L (23-31); Chloride 113 mmol/L (98-107); Estimated GFR-MDRD 14; Glucose 95 mg/dL (83-110); Sodium 140 mmol/L (136-145)
[2019-08-10 21:28] LABS: Potassium 6.6 mmol/L (3.5-5.1)
[2019-08-10] MEDS: Albuterol Sulfate 2.5 mg/3 ml Neb NEB SCH (22:29)
[2019-08-11] MEDS: Albuterol Sulfate 2.5 mg/3 ml Neb NEB SCH ×5 (02:23→18:41)
[2019-08-11 03:57] LABS: Albumin 2.7 g/dL (3.4-4.8); Anion Gap 13 mmol/L (10-20); BUN (Urea Nitrogen) 57 mg/dL (9.8-20.1); BUN/Creatinine Ratio 19.06; Calc. Creatinine Clearance 20 mL/min (70-130); Calcium 8.1 mg/dL (7.8-10.44); Carbon Dioxide 21 mmol/L (23-31); Chloride 111 mmol/L (98-107); Estimated GFR-MDRD 15; Glucose 143 mg/dL (83-110); Phosphorus 6.8 mg/dL (2.3-4.7); Sodium 140 mmol/L (136-145)
[2019-08-11] MEDS: Dextrose 5% in Water 1,000 ML IV SCH (04:02)
[2019-08-11] MEDS ORDERED: Prevnar 13-Val Conj/PF 0.5 ML SYRINGE IM ONE (09:00)
[2019-08-11] MEDS ORDERED: Sodium Bicarbonate Tab 325 MG TAB PO SCH (09:00)
[2019-08-11 11:57] VITALS: BMI 36.1
--- NOTE | 2019-08-11 16:48 | PRG ---
DATE OF SERVICE: 08/11/2019 SERVICE: Nephrology. SUBJECTIVE: An 84-year-old female who was brought in from custodial due to generalized weakness and ill feeling associated with elevated creatinine and potassium. The patient reports feeling better today. Denied nausea, vomiting, or abdominal pain. The patient who later developed decreased responsiveness due to hypoglycemia seems very conversational and awake today. OBJECTIVE: VITAL SIGNS: Temperature 98.1, pulse 74, respiratory rate 14, SpO2 of 98% on 2 L nasal cannula, and blood pressure is 135/53. GENERAL: Elderly female, in no obvious distress. Afebrile. Anicteric. Acyanotic. HEENT: Normocephalic and atraumatic. Oral mucosa is moist. CARDIOVASCULAR: Regular rhythm and rate with normal heart sounds 1 and 2. RESPIRATORY: Fair air entry bilaterally with some transmitted breath sounds. No obvious rhonchi were appreciated. GI: Enlarged, soft, nontender, and nondistended with normal bowel sounds. EXTREMITIES: Trace to mild bilateral leg edema noted. No erythema appreciated. LEAD APPLIER: Conscious and alert and oriented x3 with appropriate mental status. The patient moves all extremities. DIAGNOSTIC DATA: Renal function panel showed sodium 140, potassium 5.0, chloride 111, CO2 of 21, BUN 57, creatinine 2.99, glucose 143, and calcium 8.1. Phosphorus 6.8 and albumin 2.7. Note that on presentation, potassium was 7.4 and creatinine was 3.37. ASSESSMENT: 1. Hyperkalemia: Due to chronic kidney disease, use of LIZZIE yrn and potassium supplementation. Resolved. Treated with Kayexalate and diuretics as well as albuterol and insulin and dextrose. 2. Acute kidney injury: Due to hemodynamic factors related to LIZZIE yrn as well as volume depletion from poor oral intake. 3. Acute encephalopathy due to hypoglycemia: Resolved. 4. Metabolic acidosis: Improved. 5. Nephrotic-range proteinuria with UPC of 5 g/g of creatinine: Most likely due to diabetic nephropathy. 6. Hypoalbuminemia: Due to proteinuria. 7. Hyperphosphatemia. PLAN: 1. We will increase the rate of sodium bicarbonate infusion. 2. We will continue to avoid nephrotoxic agent including LIZZIE blockers. 3. Resume diabetic diet as tolerated. 4. Monitor vitals and adjust antihypertensives to get adequate BP control. 5. We will get vitamin D as well as PTH. We will also get 24-hour urine collection to appropriately quantify proteinuria. 6. Further treatment to follow depending on hospital course. Job ID: [id number]
[2019-08-11] MEDS ORDERED: Dextrose 5% in Water 1,000 ML IV PRN (17:00)
[2019-08-11] MEDS ORDERED: Dextrose 50% Abboject 50 ML SYRINGE IVP PRN (17:00)
[2019-08-11] MEDS ORDERED: Insulin Regular 300 UNITS/3 ML VIAL SC PRN (17:00)
[2019-08-11] MEDS: Sodium Bicarbonate 150 MEQ in Dextrose 5% in Water 1,000 ML IV SCH (17:00)
[2019-08-11] MEDS ORDERED: Insulin Glargine 28 UNITS in Pre-Filled Syringe SC SCH (17:15)
[2019-08-11 17:17] LABS: Bacteria/HPF 3+ HPF (None Seen); Bilirubin Negative (Negative); Blood, Urine 1+ (Negative); Clarity Clear (Clear); Glucose, Urine (Dipstick) >=1000 mg/dL (Negative); Leukocyte 500 Leu/uL (Negative); Nitrite Negative (Negative); Protein, Urine (Dipstick) 100 mg/dL (Neg-Trace); Squamous Epithelial 0-3 HPF (0-3); Transitional Epithelial 0-3 HPF (None Seen); Urobilinogen Normal mg/dL (Less than 2); WBC/HPF Greater than 50 HPF (0-3); Yeast-Budding 1+ HPF (None Seen)
[2019-08-11 18:08] LABS: #Basophils 0.1 thou/uL (0.0-0.2); #Eosinphils 0.1 thou/uL (0.0-0.7); #Lymphocytes 1.5 thou/uL (1.20-3.40); #Monocytes 0.9 thou/uL (0.11-0.59); #Neutrophils 5.8 thou/uL (1.40-6.50); %Basophils 0.9 % (0.0-1.0); %Eosinophils 1.2 % (0.0-10.0); %Monocytes 10.5 % (0.0-10.0); %Neutrophils 69.5 % (42.0-75.0); Hemoglobin 9.4 g/dL (12.0-16.0); Mean Corpuscular HGB CONC 31.9 g/dL (32.0-36.0); Mean Corpuscular Hemoglobin 30.3 pg (27.0-31.0); Mean Corpuscular Volume 94.9 fL (78.0-98.0); Mean Platelet Volume 8.6 fL (7.4-10.4); Platelet Count 266 thou/uL (130-400); RBC Distribution Width 13.2 % (11.5-14.5); Red Blood Cell (RBC) Count 3.09 mill/uL (4.20-5.40); White Blood Cell (WBC) Count 8.3 thou/uL (4.8-10.8)
[2019-08-11] MEDS: Acetaminophen 325 MG TAB PO PRN (18:16)
[2019-08-11] MEDS: Insulin Regular 300 UNITS/3 ML VIAL SC PRN (18:18)
[2019-08-12] MEDS: Albuterol Sulfate 2.5 mg/3 ml Neb NEB SCH ×7 (00:29→23:14)
[2019-08-12] MEDS: Sodium Bicarbonate 150 MEQ in Dextrose 5% in Water 1,000 ML IV SCH (04:29)
[2019-08-12 05:47] LABS: #Eosinphils 0.1 thou/uL (0.0-0.7); #Lymphocytes 1.8 thou/uL (1.20-3.40); #Monocytes 0.9 thou/uL (0.11-0.59); #Neutrophils 5.1 thou/uL (1.40-6.50); %Basophils 0.2 % (0.0-1.0); %Eosinophils 1.7 % (0.0-10.0); %Lymphocytes 22.7 % (21.0-51.0); %Monocytes 11.4 % (0.0-10.0); Hemoglobin 9.4 g/dL (12.0-16.0); Mean Corpuscular HGB CONC 31.2 g/dL (32.0-36.0); Mean Corpuscular Hemoglobin 29.6 pg (27.0-31.0); Mean Corpuscular Volume 94.7 fL (78.0-98.0); Mean Platelet Volume 8.7 fL (7.4-10.4); Platelet Count 273 thou/uL (130-400); RBC Distribution Width 12.9 % (11.5-14.5); Red Blood Cell (RBC) Count 3.18 mill/uL (4.20-5.40)
[2019-08-12 06:14] LABS: Albumin 2.7 g/dL (3.4-4.8); Anion Gap 12 mmol/L (10-20); BUN (Urea Nitrogen) 49 mg/dL (9.8-20.1); BUN/Creatinine Ratio 17.69; Calc. Creatinine Clearance 21 mL/min (70-130); Calcium 7.7 mg/dL (7.8-10.44); Carbon Dioxide 27 mmol/L (23-31); Chloride 105 mmol/L (98-107); Estimated GFR-MDRD 16; Glucose 197 mg/dL (83-110); Phosphorus 4.8 mg/dL (2.3-4.7); Potassium 4.2 mmol/L (3.5-5.1); Sodium 140 mmol/L (136-145)
[2019-08-12] MEDS: Calcitriol 0.25 MCG CAP PO SCH (08:43)
[2019-08-12] MEDS: Acetaminophen 325 MG TAB PO PRN ×2 (08:43→15:32)
[2019-08-12] MEDS ORDERED: Ergocalciferol 1.25 MG(50,000 UNITS) CAP PO SCH (09:00)
[2019-08-12] MEDS ORDERED: Insulin Glargine 28 UNITS in Pre-Filled Syringe SC SCH (09:00)
[2019-08-12] MEDS: Insulin Regular 300 UNITS/3 ML VIAL SC PRN (12:43)
--- NOTE | 2019-08-12 12:59 | PRG ---
DATE OF SERVICE: 08/12/2019 SERVICE: Nephrology. SUBJECTIVE: An 84-year-old female with known history of CKD, dementia, who was brought in from [facility] due to abnormal labs of elevated potassium and creatinine. Family members were around today and reported that the patient was having diarrhea prior to presentation. Diarrhea is said to have improved currently. Oral intake also has improved. Denied nausea, vomiting, fever, or chest pain. OBJECTIVE: VITAL SIGNS: Temperature 98.1, pulse 89, respiratory rate 20, SpO2 of 98% on 2 L nasal cannula, blood pressure is 148/68. GENERAL: Elderly female, in no obvious distress. Afebrile. Anicteric. Acyanotic. HEENT: Normocephalic, atraumatic. Oral mucosa is moist. NECK: Supple with no JVD. CARDIOVASCULAR: Regular rhythm and rate with normal heart sounds 1 and 2. RESPIRATORY: Fair air entry bilaterally with few transmitted breath sounds with no obvious crackle or rhonchi or use of accessory muscles. GI: Obese, enlarged, soft, and nontender with normal bowel sounds. EXTREMITIES: Grossly normal looking, atraumatic with no obvious edema. MANAGER FUNCTIONAL: Conscious, alert, and oriented to person and place at least. Memory lapses noted. Face is symmetrical. Moves all extremities. DIAGNOSTIC DATA: CBC showed WBC count of 8.0, hemoglobin of 9.4, platelets of 273. Renal function panel showed sodium 140, potassium 4.2, chloride 105, CO2 of 27, BUN 59, creatinine 2.77, glucose 197, calcium 7.7, phosphorus 4.8, albumin 2.7. Vitamin D is 16.3 and PTH intact is 721.5. ASSESSMENT: 1. Acute kidney injury, this is due to volume depletion related to diarrhea illness and poor intake in a patient taking RAAS yrn. Creatinine is trending downwards towards baseline with IV fluid therapy. 2. 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 3. Secondary hyperparathyroidism. 4. Vitamin D deficiency. 5. Nephrotic-range proteinuria with UPC of more than 5 g per g of creatinine, most likely due to diabetic nephropathy. 6. Hypertension, control is acceptable. 7. Obesity. 8. Diabetes mellitus. PLAN: 1. Continue IV fluid therapy. 2. Start vitamin D supplementation. 3. Also start calcitriol for secondary hyperparathyroidism. 4. We will continue to hold RAAS blockers in this patient. 5. Diet as tolerated to continue. 6. We will recheck renal function test in the morning. 7. Further treatment to follow depending on hospital course. Job ID: [id number]
[2019-08-12] MEDS: cefTRIAXone\\ROCEPHIN 1 GM in Sodium Chloride 0.9% 100 ML IVPB SCH (14:39)
[2019-08-13] MEDS: Albuterol Sulfate 2.5 mg/3 ml Neb NEB SCH ×6 (03:24→22:11)
[2019-08-13] MEDS: Sodium Bicarbonate 150 MEQ in Dextrose 5% in Water 1,000 ML IV SCH (05:18)
[2019-08-13] MEDS: Acetaminophen 325 MG TAB PO PRN (05:30)
[2019-08-13 06:14] LABS: #Basophils 0.1 thou/uL (0.0-0.2); #Eosinphils 0.1 thou/uL (0.0-0.7); #Lymphocytes 1.2 thou/uL (1.20-3.40); #Neutrophils 5.8 thou/uL (1.40-6.50); %Basophils 0.8 % (0.0-1.0); %Eosinophils 1.4 % (0.0-10.0); %Lymphocytes 14.9 % (21.0-51.0); %Monocytes 11.9 % (0.0-10.0); Hemoglobin 9.2 g/dL (12.0-16.0); Mean Corpuscular HGB CONC 30.3 g/dL (32.0-36.0); Mean Corpuscular Hemoglobin 28.5 pg (27.0-31.0); Mean Platelet Volume 8.5 fL (7.4-10.4); Platelet Count 274 thou/uL (130-400); RBC Distribution Width 12.9 % (11.5-14.5); Red Blood Cell (RBC) Count 3.22 mill/uL (4.20-5.40); White Blood Cell (WBC) Count 8.2 thou/uL (4.8-10.8)
[2019-08-13 06:41] LABS: Albumin 2.7 g/dL (3.4-4.8); Anion Gap 13 mmol/L (10-20); BUN (Urea Nitrogen) 40 mg/dL (9.8-20.1); BUN/Creatinine Ratio 16.39; Calc. Creatinine Clearance 25 mL/min (70-130); Calcium 7.9 mg/dL (7.8-10.44); Carbon Dioxide 30 mmol/L (23-31); Chloride 103 mmol/L (98-107); Estimated GFR-MDRD 19; Glucose 225 mg/dL (83-110); Phosphorus 4.6 mg/dL (2.3-4.7); Sodium 142 mmol/L (136-145)
[2019-08-13] MEDS ORDERED: Sodium Bicarbonate 50 MEQ in Sodium Chloride 0.45% 1,000 ML IV SCH (07:45)
[2019-08-13] MEDS: Calcitriol 0.25 MCG CAP PO SCH (08:09)
[2019-08-13] MEDS ORDERED: Insulin Glargine 40 UNITS in Pre-Filled Syringe 1 EACH SC SCH (09:00)
[2019-08-13] MEDS ORDERED: Alogliptin 25 MG TAB PO SCH (11:00)
[2019-08-13] MEDS: Insulin Regular 300 UNITS/3 ML VIAL SC PRN (11:07)
[2019-08-13] MEDS: cefTRIAXone\\ROCEPHIN 1 GM in Sodium Chloride 0.9% 100 ML IVPB SCH (14:33)
--- NOTE | 2019-08-13 18:35 | PRG ---
DATE OF SERVICE: 08/13/2019 SERVICE: Nephrology. SUBJECTIVE: An 84-year-old custodial resident with diabetes, hypertension, admitted with generalized weakness and abnormal labs. The patient is seen in followup for acute on chronic renal failure. The patient reports feeling better. Diarrhea has subsided. Oral intake is improving. OBJECTIVE: VITAL SIGNS: Temperature 98.3, pulse 86, respiratory rate 18, SpO2 of 95% on room air, and blood pressure is 146/72. GENERAL: Obese female, in no obvious distress. Afebrile. Anicteric. Acyanotic. HEENT: Normocephalic and atraumatic. Oral mucosa is moist. NECK: Supple with no JVD. CARDIOVASCULAR: Regular rhythm and rate with normal heart sounds 1 and 2. RESPIRATORY: Fair air entry bilaterally with no obvious crackle or rhonchi or use of accessory muscles. GI: Obese, soft, nontender, and nondistended with normal bowel sounds. EXTREMITIES: Grossly normal looking atraumatic with no edema or erythema. 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 Cranial nerves 2 through 12 are grossly intact. Memory lapse is noted. DIAGNOSTIC DATA: CBC showed WBC count of 8.2, hemoglobin of 9.2, MCV of 94.0, and platelet of 274. Renal function panel showed sodium 142, potassium 4.0, chloride 103, CO2 of 30, BUN 40, creatinine 2.44, glucose 225, calcium 7.9, phosphorus 4.6, and albumin 2.7. ASSESSMENT: 1. Acute on chronic renal failure: Due to hemodynamic factors related to volume depletion as well as use of bpayn-cjdeciufhub-wksixolkwcz system yrn. Creatinine is trending downward towards baseline with IV fluid therapy. 2. Chronic kidney disease, stage 4. 3. Hypertension: Control is acceptable. 4. Metabolic acidosis: Resolved. 5. Hyperkalemia, resolved. PLAN: 1. We will continue IV fluid therapy. We will, however, change sodium bicarbonate infusion to bicarb in half-normal saline as the patient is hyperglycemic. 2. Penrose oral intake advised. 3. Monitor blood pressure closely and adjust antihypertensives to get adequate BP control. 4. Await 24-hour urine protein. 5. Further treatment to follow depending on hospital course. Job ID: [id number]
[2019-08-13 18:42] LABS: 24 Hr Creatinine 617.32 mg/24 hr (710-1650); Creatinine, Urine 26.84 mg/dL (47-110)
[2019-08-13] MEDS: Dextrose 5 % And 0.9 % NaCl 1,000 ML IV SCH (20:40)
[2019-08-13 23:26] LABS: Glucose POC Confirmation 79 mg/dl (83-110)
[2019-08-14] MEDS: Albuterol Sulfate 2.5 mg/3 ml Neb NEB SCH ×6 (03:40→22:11)
[2019-08-14] MEDS: Dextrose 5 % And 0.9 % NaCl 1,000 ML IV SCH (06:00)
[2019-08-14 06:02] LABS: #Basophils 0.1 thou/uL (0.0-0.2); #Eosinphils 0.3 thou/uL (0.0-0.7); #Lymphocytes 1.2 thou/uL (1.20-3.40); #Neutrophils 5.1 thou/uL (1.40-6.50); %Basophils 0.8 % (0.0-1.0); %Eosinophils 3.5 % (0.0-10.0); %Lymphocytes 15.9 % (21.0-51.0); %Monocytes 12.6 % (0.0-10.0); %Neutrophils 67.2 % (42.0-75.0); Hemoglobin 9.1 g/dL (12.0-16.0); Mean Corpuscular HGB CONC 30.3 g/dL (32.0-36.0); Mean Corpuscular Hemoglobin 28.8 pg (27.0-31.0); Mean Corpuscular Volume 94.8 fL (78.0-98.0); Mean Platelet Volume 8.3 fL (7.4-10.4); Platelet Count 287 thou/uL (130-400); RBC Distribution Width 12.9 % (11.5-14.5); Red Blood Cell (RBC) Count 3.17 mill/uL (4.20-5.40); White Blood Cell (WBC) Count 7.6 thou/uL (4.8-10.8)
[2019-08-14 06:21] LABS: Albumin 2.6 g/dL (3.4-4.8); Anion Gap 13 mmol/L (10-20); BUN (Urea Nitrogen) 30 mg/dL (9.8-20.1); BUN/Creatinine Ratio 13.82; Calc. Creatinine Clearance 28 mL/min (70-130); Carbon Dioxide 28 mmol/L (23-31); Chloride 107 mmol/L (98-107); Estimated GFR-MDRD 22; Glucose 81 mg/dL (83-110); Phosphorus 3.8 mg/dL (2.3-4.7); Potassium 4.5 mmol/L (3.5-5.1); Sodium 143 mmol/L (136-145)
[2019-08-14] MEDS: Acetaminophen 325 MG TAB PO PRN (06:45)
[2019-08-14] MEDS ORDERED: Sodium Bicarbonate 50 MEQ in Sodium Chloride 0.45% 1,000 ML IV SCH (08:15)
[2019-08-14] MEDS: Calcitriol 0.25 MCG CAP PO SCH (08:22)
[2019-08-14] MEDS ORDERED: Alogliptin 25 MG TAB PO SCH (09:00)
[2019-08-14] MEDS ORDERED: Carvedilol 3.125 MG TAB PO SCH (09:00)
[2019-08-14] MEDS: Insulin Glargine 30 UNITS in Pre-Filled Syringe 1 EACH SC SCH (09:38)
--- NOTE | 2019-08-14 11:16 | PRG ---
DATE OF SERVICE: 08/14/2019 SERVICE: Nephrology. SUBJECTIVE: An 84-year-old female with CKD, diabetes, hypertension, half-way resident, who was admitted due to abnormal labs of elevated potassium and creatinine. The patient has been having diarrhea prior to presentation. Clinically improved with IV fluid therapy. Feeling stronger. Denied nausea or vomiting, and diarrhea has subsided. OBJECTIVE: VITAL SIGNS: Temperature 98.1, pulse 92, respiratory rate 20, SpO2 of 98 on room air, blood pressure is 150/69. GENERAL: Obese female, in no obvious distress. Afebrile, anicteric, acyanotic. HEENT: Normocephalic and atraumatic. Oral mucosa is moist. NECK: Supple with no JVD. CARDIOVASCULAR: Regular rhythm and rate with normal heart sounds 1 and 2. RESPIRATORY: Fair air entry bilaterally with no crackle or rhonchi or use of accessory muscles. GI: Obese, soft, nontender, nondistended with normal bowel sounds. EXTREMITIES: Grossly normal looking, atraumatic, with no edema or erythema. ROLLER HAND: Conscious, alert, and oriented x3 with appropriate mental status. Memory lapse is noted. DIAGNOSTIC DATA: CBC today showed WBC count of 7.6, hemoglobin of 9.1, platelets of 287. Renal function panel showed sodium 143, potassium 4.5, chloride 107, CO2 of 27, BUN 30, creatinine 2.17, glucose 81, calcium 8.0, phosphorus 3.8, albumin 2.6. ASSESSMENT: 1. Acute kidney injury: Due to hemodynamic factors related to diuretics and RAAS yrn as well as volume depletion from GI losses and poor oral intake. 2. Chronic kidney disease, stage 3/4. 3. Hypertension. 4. Diarrhea illness: Resolved. 5. Metabolic acidosis. 6. Hyperkalemia: Resolved. PLAN: 1. We will increase carvedilol to 6.25 to get a better BP control. 2. We will also discontinue IV fluid therapy. This will help blood pressure control. 3. We will recheck renal function test in the morning. 4. Continue to hold RAAS yrn until renal function stabilizes. 5. If renal function continued to trend downwards with discontinuation of IV fluid therapy, the patient can be discharged from Nephrology point of view tomorrow morning. She however will need a followup appointment with repeat labs in 1 to 2 weeks. The patient will definitely benefit from RAAS yrn, given nephrotic range proteinuria. Further treatment to follow depending on hospital course. Job ID: [id number]
[2019-08-14] MEDS: cefTRIAXone\\ROCEPHIN 1 GM in Sodium Chloride 0.9% 100 ML IVPB SCH (14:48)
[2019-08-14] MEDS: Carvedilol 3.125 MG TAB PO SCH (20:33)
[2019-08-15] MEDS: Albuterol Sulfate 2.5 mg/3 ml Neb NEB SCH ×3 (02:13→10:43)
[2019-08-15 05:54] LABS: Albumin 2.8 g/dL (3.4-4.8); Anion Gap 13 mmol/L (10-20); BUN (Urea Nitrogen) 26 mg/dL (9.8-20.1); BUN/Creatinine Ratio 12.44; Calc. Creatinine Clearance 0 mL/min (70-130); Calcium 8.5 mg/dL (7.8-10.44); Carbon Dioxide 23 mmol/L (23-31); Chloride 111 mmol/L (98-107); Estimated GFR-MDRD 23; Glucose 106 mg/dL (83-110); Phosphorus 3.5 mg/dL (2.3-4.7); Potassium 4.7 mmol/L (3.5-5.1); Sodium 142 mmol/L (136-145)
[2019-08-15] MEDS: Calcitriol 0.25 MCG CAP PO SCH (08:28)
[2019-08-15] MEDS: Carvedilol 3.125 MG TAB PO SCH (08:28)
[2019-08-15] MEDS: Insulin Glargine 30 UNITS in Pre-Filled Syringe 1 EACH SC SCH (09:04)
[2019-08-15 12:32] VITALS: BP 158/75; TEMP 98.2
--- NOTE | 2019-08-16 22:09 | PQF ---
KAL KIM GRANT VÁZQUEZ [id number] TRUNG TRUNG [id number] CLINICAL DOCUMENTATION CLARIFICATION FORM: POST DISCHARGE Addendum to original discharge summary date: ____ Late entry note date: __ Should be directed to the primary attending. Saw patient for Nephrology. DATE:08/16/2019 ATTN:GRANT VÁZQUEZ Please exercise your independent, professional judgment in responding to the clarification form. Clinical indicators are provided on the bottom of this form for your review Please check appropriate box(s): HEART FAILURE: A. TYPE: [ ] Systolic / HFrEF [ ] Diastolic / HFpEF [ ] Combined Systolic / Diastolic B. ACUITY [ ] Acute [ ] Acute on Chronic [ ] Chronic [ ] Other diagnosis [ ] Unable to determine In addition, please specify: Present on Admission (POA): [ ] Yes [ ] No [ ] Unable to determine For continuity of documentation, please document condition throughout progress notes and discharge summary. Thank You. CLINICAL INDICATORS - SIGNS / SYMPTOMS / LABS BNP slightly elevated at 322.9-Documented in H&P on 08/10 by Boo Fox Chest X ray shows mild cardiomegaly with mild effusion -Documented in H&P on by Boo Fox PMH: Congestive heart failure -Documented in consultation on 08/10 by Grant Vázquez MD Acute cardiac decompensation given edema and some congestion noticed on chest X ray-Documented in consultation on 08/10 by Grant Vázquez MD EF-55%-60%-Documented in ECHO on 08/11 RISKS: HTN-Documented in consultation on 08/10 by Grant Vázquez MD CAD-Documented in consultation on 08/10 by Grant Vázquez MD Acute on chronic renal failure -Documented in consultation on 08/10 by Grant Vázquez MD TREATMENTS: Continue Lasix-Documented in H&P on 08/10 by Boo Fox We will give kayexalate 30 g as well as 80 mg of IV lasix-Documented in consultation on 08/10 by Grant Vázquez MD We will recheck BMP in 4 hours-Documented in consultation on 08/10 by Grant Vázquez MD 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 All Rights Reserved [email or web address]
--- NOTE | 2019-08-24 09:40 | PQF ---
KIMKAL CHAMPION GRANT VÁZQUEZ [id number] TYRONE NINO [id number] CLINICAL DOCUMENTATION CLARIFICATION FORM: POST DISCHARGE Addendum to original discharge summary date: ____ Late entry note date: __ Should be directed to the primary attending. DATE:08/24/2019 ATTN:GRANT VÁZQUEZ Please exercise your independent, professional judgment in responding to the clarification form. Clinical indicators are provided on the bottom of this form for your review Please check appropriate box(s): [ ] Acute metabolic encephalopathy [ ] Acute encephalopathy NOS [ ] Other diagnosis [ ] Unable to determine In addition, please specify: Present on Admission (POA): [ ] Yes [ ] No [ ] Unable to determine For continuity of documentation, please document condition throughout progress notes and discharge summary. Thank You. CLINICAL INDICATORS - SIGNS / SYMPTOMS / LABS Acute encephalopathy due to hypoglycemia resolved -Documented in PN on 08/11 by Grant Vázquez The patient who later developed decreased responsiveness due to hypoglycemia seems very conversational and awake today-Documented in PN on 08/11 by Grant Vázquez Insulin-dependent diabetic , noncompliant-Documented in H&p on 08/10 by Boo Fox The patient has had progressive mild dementia making correct medication changes very difficult-Documented in H&p on 08/10 by Boo Fox RISK FACTORS Insulin-dependent diabetic , noncompliant-Documented in H&p on 08/10 by Boo Fox Hypoglycemia resolved -Documented in PN on 08/11 by Grant Vázquez TREATMENTS: Continue IV fluids therapy -Documented in PN on 08/11 by Grant Vázquez Start vitamin D supplementation -Documented in PN on 08/11 by Grant Vázquez Glucagon 1 mg IM -Documented in Medication snapshot 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 All Rights Reserved [email or web address]
== END 2019-08-15 12:47 | disposition home or self-care (01) | DRG 683 ==
LOC: ERS 09:38 → ERHOLD 12:36 → IMCU/EMU 17:06 → T4-B 08-11 20:13
PROVIDERS: ADMIT Specialist; ATTEND Specialist
DX: N17.9 Acute kidney failure, unspecified (principal); E87.2 Acidosis; I13.0 Hypertensive heart and chronic kidney disease with heart failure and stage 1 through stage 4 chronic kidney disease, or unspecified chronic kidney disease; G93.49 Other encephalopathy; E87.5 Hyperkalemia; N18.4 Chronic kidney disease, stage 4 (severe); T50.2X5A Adverse effect of carbonic-anhydrase inhibitors, benzothiadiazides and other diuretics, initial encounter; Z86.73 Personal history of transient ischemic attack (TIA), and cerebral infarction without residual deficits; I50.9 Heart failure, unspecified; N18.9 Chronic kidney disease, unspecified; E78.5 Hyperlipidemia, unspecified; Z90.49 Acquired absence of other specified parts of digestive tract; R40.2412 Glasgow coma scale score 13-15, at arrival to emergency department; K21.9 Gastro-esophageal reflux disease without esophagitis; E11.42 Type 2 diabetes mellitus with diabetic polyneuropathy; E11.22 Type 2 diabetes mellitus with diabetic chronic kidney disease; Z90.710 Acquired absence of both cervix and uterus; Z98.890 Other specified postprocedural states; I25.10 Atherosclerotic heart disease of native coronary artery without angina pectoris; G89.29 Other chronic pain; E55.9 Vitamin D deficiency, unspecified; N25.81 Secondary hyperparathyroidism of renal origin; E11.21 Type 2 diabetes mellitus with diabetic nephropathy; E66.9 Obesity, unspecified; Z68.37 Body mass index [BMI] 37.0-37.9, adult; E88.09 Other disorders of plasma-protein metabolism, not elsewhere classified; E83.39 Other disorders of phosphorus metabolism; E11.649 Type 2 diabetes mellitus with hypoglycemia without coma
CPT/HCPCS: 36415; 36416; 51701; 71045; 76770; 80053; 80069; 81001; 81003; 81015; 82306; 82550; 82570; 82805; 83690; 83735; 83880; 83970; 84156; 84300; 84484; 84540; 85025; 87040; 87077; 87086; 87186; 90471; 90670; 93005; 93306; 94640; 94644; 96374; 96375; 96376; G0009; J0696; J1815; J1940; J3490; J7070; J7611

== ENCOUNTER 2019-09-10 15:03 | Emergency (ER) | payer MEDICARE ==
[2019-09-10 15:42] LABS: #Basophils 0.1 thou/uL (0.0-0.2); #Eosinphils 0.1 thou/uL (0.0-0.7); #Lymphocytes 1.4 thou/uL (1.20-3.40); #Monocytes 0.7 thou/uL (0.11-0.59); #Neutrophils 4.2 thou/uL (1.40-6.50); %Basophils 1.1 % (0.0-1.0); %Eosinophils 2.1 % (0.0-10.0); %Lymphocytes 20.7 % (21.0-51.0); %Monocytes 11.1 % (0.0-10.0); Hemoglobin 11.2 g/dL (12.0-16.0); Mean Corpuscular Hemoglobin 30.4 pg (27.0-31.0); Mean Corpuscular Volume 92.3 fL (78.0-98.0); Mean Platelet Volume 8.2 fL (7.4-10.4); Platelet Count 301 thou/uL (130-400); RBC Distribution Width 13.7 % (11.5-14.5); Red Blood Cell (RBC) Count 3.69 mill/uL (4.20-5.40); White Blood Cell (WBC) Count 6.5 thou/uL (4.8-10.8)
[2019-09-10 16:04] LABS: ALT (SGPT) 15 U/L (8-55); AST (SGOT) 21 U/L (5-34); Albumin 2.9 g/dL (3.4-4.8); Alkaline Phosphatase 120 U/L (40-110); Anion Gap 12 mmol/L (10-20); BUN (Urea Nitrogen) 27 mg/dL (9.8-20.1); Bilirubin, Total 0.4 mg/dL (0.2-1.2); Calc. Creatinine Clearance 0 mL/min (70-130); Carbon Dioxide 21 mmol/L (23-31); Chloride 112 mmol/L (98-107); Estimated GFR-MDRD 19; Globulin 3.5 g/dL (2.4-3.5); Glucose 90 mg/dL (83-110); Potassium 3.6 mmol/L (3.5-5.1); Protein, Total 6.4 g/dL (6.0-8.3); Sodium 141 mmol/L (136-145)
[2019-09-10 16:23] LABS: Bilirubin Negative (Negative); Blood, Urine 1+ (Negative); Clarity Turbid (Clear); Glucose, Urine (Dipstick) 200 mg/dL (Negative); Leukocyte Negative Leu/uL (Negative); Nitrite Negative (Negative); Protein, Urine (Dipstick) 600 mg/dL (Neg-Trace); Squamous Epithelial 0-3 HPF (0-3); Urobilinogen Normal mg/dL (Less than 2)
[2019-09-10 16:45] LABS: Bacteria/HPF 1+ HPF (None Seen)
== END 2019-09-10 16:55 | disposition home or self-care (01) ==
LOC: ERS 15:03
DX: E11.649 Type 2 diabetes mellitus with hypoglycemia without coma (principal); N39.0 Urinary tract infection, site not specified; I11.0 Hypertensive heart disease with heart failure; I50.9 Heart failure, unspecified; E78.5 Hyperlipidemia, unspecified; Z86.73 Personal history of transient ischemic attack (TIA), and cerebral infarction without residual deficits
CPT/HCPCS: 36415; 36416; 51701; 80053; 81003; 81015; 83605; 85025; 87086; A4353

== ENCOUNTER 2020-05-02 22:34 | Inpatient (IN) | payer MEDICARE, OTHER ==
[2020-05-02] MEDS ORDERED: HYDROcodone/Acetaminophen 5/325 mg Tablet ONE (22:58)
--- NOTE | 2020-05-02 23:20 | RAD ---
XR Knee Rt 4 View STANDARD: 05/02/2020 11:00 PM CLINICAL INDICATION: Trauma with right knee pain COMPARISON: None. FINDINGS: Bones: There is diffuse osteopenia. No acute fracture or subluxation demonstrated. Joints: There is severe osteoarthrosis of the right knee with mild joint capsular distention and alexander drocalcinosis.. Soft Tissue: There are severe vascular calcifications seen involving the visualized vasculature.. IMPRESSION: No acute osseous abnormality..
--- NOTE | 2020-05-02 23:22 | RAD ---
XR Femur Rt 2 View STANDARD INDICATION: Fall with right leg pain COMPARISON: None. FINDINGS: Bones: There is an obliquely lucency seen on the obliquely oriented images of the right proximal femu r suspicious for a basicervical right femoral neck fracture. Overlying soft tissue slightly limits image detail. No additional acute osseous abnormality is evident. Soft tissues: There are severe vascular calcifications seen involving the visualized vasculature. Joints: There is severe osteoarthrosis of the right knee with moderate osteoarthrosis of the right hi p. IMPRESSION: Obliquely oriented lucency involving the right proximal femur near the basocervical regio n of the right femoral neck, suspicious for a nondisplaced fracture. Overlying soft tissue slightly limits image detail of this region. Dedicated radiographs of the right hip are recommended.
--- NOTE | 2020-05-03 00:02 | RAD ---
XR Hip Rt 2-3 View INDICATION: Trauma with right hip pain COMPARISON: None FINDINGS: Bones: There is a nondisplaced right intertrochanteric hip fracture. There is diffuse osteopenia. Hip joint: There is moderate degenerative change of the right hip. SI joints and symphysis pubis: Radiographically normal. Intrapelvic contents: Visualized bowel gas pattern is within normal limits. Surrounding soft tissues: There are severe vascular calcifications seen involving the visualized vasc ulature. IMPRESSION: 1. Nondisplaced right hip intertrochanteric fracture.
[2020-05-03] MEDS ORDERED: Morphine 2 MG/ML VIAL ONE (00:59)
[2020-05-03 01:01] LABS: #Basophils 0.1 thou/uL (0.0-0.2); #Eosinphils 0.2 thou/uL (0.0-0.7); #Lymphocytes 1.2 thou/uL (1.20-3.40); #Monocytes 0.7 thou/uL (0.11-0.59); #Neutrophils 4.7 thou/uL (1.40-6.50); %Basophils 0.8 % (0.0-1.0); %Eosinophils 2.7 % (0.0-10.0); %Lymphocytes 17.6 % (21.0-51.0); %Monocytes 10.6 % (0.0-10.0); %Neutrophils 68.2 % (42.0-75.0); Hemoglobin 12.9 g/dL (12.0-16.0); Mean Corpuscular Hemoglobin 31.5 pg (27.0-31.0); Mean Corpuscular Volume 98.4 fL (78.0-98.0); Mean Platelet Volume 8.7 fL (7.4-10.4); Platelet Count 209 thou/uL (130-400); Red Blood Cell (RBC) Count 4.09 mill/uL (4.20-5.40); White Blood Cell (WBC) Count 6.9 thou/uL (4.8-10.8)
[2020-05-03 01:13] LABS: INR-International Normal Ratio 0.9; PTT 31.3 sec (22.9-36.1); Prothrombin Time 12.4 sec (12.0-14.7)
[2020-05-03] MEDS ORDERED: Dextrose 50% Abboject 50 ML SYRINGE SLOW IVP PRN (01:14)
[2020-05-03] MEDS ORDERED: Ondansetron PF 4 MG/2 ML Vial IVP PRN (01:14)
[2020-05-03] MEDS ORDERED: Dextrose 5% in Water 1,000 ML IV PRN (01:14)
[2020-05-03] MEDS ORDERED: Morphine 2 MG/ML VIAL SLOW IVP PRN (01:14)
[2020-05-03] MEDS ORDERED: Insulin Regular 300 UNITS/3 ML VIAL SC PRN (01:14)
[2020-05-03] MEDS ORDERED: Sodium Chloride 0.9% 1,000 ML IV SCH (01:15)
[2020-05-03 01:21] LABS: ALT (SGPT) 18 U/L (8-55); AST (SGOT) 26 U/L (5-34); Albumin 3.1 g/dL (3.4-4.8); Alkaline Phosphatase 147 U/L (40-110); Anion Gap 16 mmol/L (10-20); BUN (Urea Nitrogen) 46 mg/dL (9.8-20.1); Bilirubin, Total 0.3 mg/dL (0.2-1.2); Calc. Creatinine Clearance 0 mL/min (70-130); Calcium 8.7 mg/dL (7.8-10.44); Carbon Dioxide 23 mmol/L (23-31); Chloride 105 mmol/L (98-107); Estimated GFR-MDRD 13; Globulin 3.6 g/dL (2.4-3.5); Glucose 152 mg/dL (83-110); Potassium 5.1 mmol/L (3.5-5.1); Protein, Total 6.7 g/dL (6.0-8.3); Sodium 139 mmol/L (136-145)
[2020-05-03 01:43] LABS: Magnesium 2.1 mg/dL (1.6-2.6); Phosphorus 3.8 mg/dL (2.3-4.7)
--- NOTE | 2020-05-03 02:19 | HP ---
PRIMARY CARE PHYSICIAN: Boo Fox MD CONSULTS: 1. Nephrology. 2. Orthopedic Surgery, Dr. Cruz. CHIEF COMPLAINT: Ground level fall, right hip pain. HISTORY OF PRESENT ILLNESS: This is an 84-year-old female with past medical history of end-stage renal disease, coronary artery disease, hypertension, and congestive heart failure. The patient was at home with her family when she lost her balance causing her to fall onto her right hip. The patient denies any loss of consciousness. The patient denies hitting her head or any other injuries. The patient denies feeling weak, dizzy, lightheaded, short of breath, or chest pain before falling. The patient denies any recent illness. The patient last received dialysis on . The patient was evaluated in the emergency room and found to have a right intertrochanteric femur fracture. The patient was given hydrocodone for pain. REVIEW OF SYSTEMS: A 10-point review of systems is negative unless otherwise indicated in the above HPI. PAST MEDICAL HISTORY: Coronary artery disease; congestive heart failure; diabetes; hyperlipidemia; hypertension; end-stage renal disease on dialysis Wednesday, , Wednesday; gastroesophageal reflux disease; peripheral neuropathy; and dementia. PAST SURGICAL HISTORY: Appendectomy, right hand surgery, tumor removed from right side of her abdomen, and hysterectomy. SOCIAL HISTORY: The patient lives at home with her son. Denies illicit drug use or tobacco use or alcohol use. ALLERGIES: NO KNOWN DRUG ALLERGIES. CURRENT MEDICATIONS: 1. Lisinopril 20 mg b.i.d. 2. Gabapentin 400 mg b.i.d. 3. Plavix 75 mg daily. 4. Hydralazine 50 mg 3 times a day. 5. Furosemide 40 mg daily. 6. Carvedilol 6.25 mg b.i.d. OBJECTIVE: VITAL SIGNS: Blood pressure 160/70, respirations 18, pulse 70, respirations 18, temperature 98.2, SpO2 98% on room air. GENERAL: Elderly female, awake, alert, in no distress. HEENT: Head is atraumatic normocephalic. Pupils are equal bilateral. Mucous membranes are moist. No cervical spine tenderness. Normal range of motion of neck. No JVD. RESPIRATORY: Good inspiratory and expiratory effort, bilateral breath sounds clear. Temporary dialysis catheter, right subclavian. CARDIAC: Regular rate, regular rhythm, no murmurs, no pedal edema. ABDOMEN: Obese, soft, nontender. No peritoneal signs. PELVIS: Tenderness to palpation, right hip. EXTREMITIES: Moves all extremities. Neurovascularly intact x4. Right lower extremity mildly shortened and mildly externally rotated. NEUROLOGIC: No focal deficits. GCS 15. LABORATORY DATA: WBC 6.9, RBC 4.09, hemoglobin 12.9, hematocrit 40.3, platelets 209. PT 12.4, INR 0.9, APTT 31.3. Sodium 139, potassium 5.1, chloride 105, BUN 46, creatinine 3.32, estimated GFR 13, glucose 152, calcium 8.7, AST 26, ALT 18, alkaline phosphatase 147. Troponin I 0.017. Albumin 3.1. DIAGNOSTIC DATA: 1. 12-lead EKG. Impression: Sinus rhythm, rate 70, no T-wave or ST-segment abnormalities. 2. Femur x-ray, right. Impression: Obliquely oriented lucency involving the right proximal femur near the basicervical region of the right femoral neck, suspicious for nondisplaced fracture. 3. Right knee x-ray. Impression: No acute osseous abnormality. 4. Right hip x-ray. Impression: Nondisplaced right hip intertrochanteric fracture. 5. Chest x-ray pending. ASSESSMENT: 1. Ground level fall. 2. Right intertrochanteric hip fracture. 3. End-stage renal disease, on dialysis Wednesday, , Wednesday. 4. History of coronary artery disease, hypertension, gastroesophageal reflux disease, peripheral neuropathy, diabetes type 2, and dementia. PLAN: Admit to the surgical floor. N.p.o. except for sips and medications. Gentle maintenance fluids normal saline 50 mL an hour. Orthopedic Surgery planning to take the patient to the OR tomorrow for repair. We will consult Nephrology for dialysis. Pain control. Renally dosed all medications. PT and OT consult to evaluate and treat postop. A post-acute screen for placement. This patient will likely need additional rehab. The plan was discussed with the patient who agrees. The plan will be discussed with the attending after this dictation. Job ID: [id number]
[2020-05-03 03:43] VITALS: BMI 30.4
[2020-05-03] MEDS: Acetaminophen 325 MG TAB PO SCH ×3 (05:31→16:56)
[2020-05-03] MEDS: Cyclobenzaprine 10 MG TAB PO PRN ×2 (05:41→16:58)
[2020-05-03] MEDS ORDERED: CEFAZOLIN 2 GM in Premix Bag 1 BAG IVPB SCH ×2 (07:45→14:00)
--- NOTE | 2020-05-03 07:52 | CON ---
DATE OF CONSULTATION: 05/03/2020 REQUESTING PHYSICIAN: Smooth Garcia DO. BRIEF HISTORY OF PRESENT ILLNESS: The patient is an 84-year-old lady who reports that she fell in her kitchen on the evening of 05/02/2020, sustaining injury to her right hip. The patient denies any obvious loss of consciousness, although she is not entirely clear why she fell. She does have a past history of end-stage renal disease; coronary artery disease; and by report, congestive heart failure. Upon arrival at [facility], x-rays were obtained and she was found to have a right intertrochanteric femur fracture with no displacement. She was admitted to the Trauma Service and Orthopedic consultation requested. PAST MEDICAL HISTORY: Coronary artery disease, congestive heart failure, end-stage renal disease, diabetes, hypertension, GERD, and peripheral neuropathy. PAST SURGICAL HISTORY: Includes appendectomy, hysterectomy, right hand surgery. MEDICATIONS: At time of admission include: 1. Lisinopril. 2. Neurontin. 3. Hydralazine. 4. Furosemide. 5. Carvedilol. 6. Plavix. ALLERGIES: NONE KNOWN. FAMILY HISTORY: Noncontributory. SOCIAL HISTORY: She lives in a private residence with family. She denies history of drug, tobacco, or alcohol use. REVIEW OF SYSTEMS: No recent fevers, chills, or sweats. Denies chest pain, cough, or shortness of breath currently, although she does have a history of shortness of breath with exertion. She does have peripheral neuropathy of lower extremities. PHYSICAL EXAMINATION: VITAL SIGNS: She is found to have a temperature of 98.4, heart rate of 73, respiratory rate of 18, and blood pressure 153/59. HEENT: Atraumatic and normocephalic. HEART: Shows a regular rate and rhythm with a 2/6 systolic ejection murmur. LUNGS: Clear bilaterally with somewhat distant breath sounds. Her chest wall is nontender. ABDOMEN: Round, but soft and nontender. PELVIS: Stable. EXTREMITIES: Remarkable for right lower extremity with pain with any type of log-rolling of the thigh. I do not appreciate obvious shortening. The knee, ankle and foot appear atraumatic. She does have a stocking distribution of dysesthesias which predates this traumatic event. She has good capillary refill and a foot that is relatively warm with somewhat diminished pulses, presumed secondary to her diabetes. LABORATORY DATA: White count of 6.9, hematocrit of 40.3, and 209,000 platelets. INR of 0.9. X-RAYS: Include 2-view x-ray of hip, which demonstrates a nondisplaced intertrochanteric femur fracture. X-ray of right knee demonstrates some osteoarthritis with joint space narrowing as well as evidence of chondrocalcinosis. X-ray of the right femur remarkable for this intertrochanteric femur fracture which is nondisplaced. ASSESSMENT: An 84-year-old lady status post fall at home, sustaining nondisplaced right intertrochanteric femur fracture. The patient is a household and community ambulator with cane. The patient has significant comorbidities including coronary artery disease, congestive heart failure, and diabetes. PLAN: At this time, the patient is felt to be optimized for surgical intervention. We will proceed to the operating room for stabilization with a DHS device. I have discussed with the patient risks and benefits of surgery. Risks include, but are not limited to bleeding, infection, nerve injury, DVT, PE, malunion, nonunion, loss of limb or life. The patient appears to understand and does wish to proceed. Written consent will be obtained prior to surgery. Job ID: [id number]
--- NOTE | 2020-05-03 08:15 | RAD ---
PORTABLE CHEST: HISTORY: Fall. Comparison 02/14/2020. FINDINGS: Lung carranza are clear. Heart is mildly enlarged. Aortic calcification is noted. Dual-lumen central line via the right jugular overlies the SVC. The osseous structures appear intact. IMPRESSION: No acute finding. POS: OFF
[2020-05-03] MEDS: traMADol HCl 50 MG TAB PO SCH ×2 (08:16→20:13)
[2020-05-03] MEDS: Polyethylene Glycol 3350 17 GM Packet PO SCH (08:17)
[2020-05-03] MEDS: Senokot S 8.6-50 MG TAB PO SCH ×2 (08:17→20:13)
[2020-05-03] MEDS: Famotidine/PF 20 mg/2ml Vial SLOW IVP SCH (08:19)
[2020-05-03] MEDS ORDERED: Rocuronium Bromide 10 MG/ML (10ML VIAL) ONE (09:54)
[2020-05-03] MEDS ORDERED: Ondansetron PF 4 MG/2 ML Vial ONE (09:54)
[2020-05-03] MEDS ORDERED: Glycopyrrolate 0.2 MG/ML 5 ML SYRINGE ONE (09:54)
[2020-05-03] MEDS ORDERED: Bupivacaine HCl 0.5%/Epinephrine 1:200,000/PF 30 ml Vial ONE (09:56)
[2020-05-03 11:03] LABS: SARS-CoV-2 MS2 Positive; SARS-CoV-2 N Gene Negative; SARS-CoV-2 S Gene Negative; SARS-CoV-2 by NAA Not Detected (NotDetected); SARS-CoV-2 orf1ab Negative
[2020-05-03] MEDS ORDERED: Fentanyl 100 MCG/2 ML VIAL ONE ×2 (11:22→13:06)
[2020-05-03] MEDS ORDERED: Phenylephrine 10 MG/ML VIAL ONE (11:30)
--- NOTE | 2020-05-03 13:06 | OP ---
DATE OF PROCEDURE: 05/03/2020 OPERATION PERFORMED: Right intertrochanteric femur dynamic hip screw fixation. PREOPERATIVE DIAGNOSIS: Right intertrochanteric femur fracture. POSTOPERATIVE DIAGNOSIS: Right intertrochanteric femur fracture. COMPLICATIONS: None. ESTIMATED BLOOD LOSS: 100 mL. DATA EXAMINATION CLERK: Mari Torre PA-C. IMPLANTS: Three-hole DHS side plate with 135 degrees angle, 80-mm screw. INDICATIONS: Ms. Leblanc is an 84-year-old female who has fallen and fractured her right proximal femur. She has been indicated for dynamic hip screw fixation to relieve pain and allow early mobilization. Risks have been reviewed. Goal is to allow early mobilization to prevent complications of prolonged bed rest. She has elected to proceed with the operation. DESCRIPTION OF PROCEDURE: Ms. Leblanc was identified in the preoperative holding area. Her correct extremity was marked. She was carried to the operating room. She was positioned supine. General anesthesia was induced. A multidisciplinary time-out was performed. The right lower extremity was prepped and draped in sterile fashion. We began the procedure with intraoperative evaluation of the fracture with x-ray. We pulled traction and rotated the limb. Once we had an anatomic reduction, we proceeded to prep and drape the limb. At this point, we made a small incision over the lateral thigh, dissecting down to the fascia, which was opened. We then cleared the vastus lateralis from the lateral femur. Next, we placed a 135-degree angle guide. We placed our pin in the centered position of the femoral head. We then measured a length and over-reamed the pin. We then placed our lag screw again in the centered position of the femoral head. We then impacted a sideplate. Three screws were placed through the sideplate bicortical. This completed fixation. We thoroughly irrigated with copious lavage. We took final images. We then closed in layers. A sterile dressing was applied. The assistant softball coach surgeon was responsible for positioning the patient, preparing the injured extremity, applying the tourniquet, and assisting in preparation for surgery. The assistant softball coach was instrumental in reducing the injured limb by applying traction and reduction maneuvers as well as holding retractors and reduction tools. The assistant softball coach also was instrumental in assisting in exposure throughout the operation using appropriate retractors. The assistant softball coach participated in closure of the operative site as well as dressing application and splint application. Job ID: [id number]
--- NOTE | 2020-05-03 14:54 | RAD ---
EXAM: 2 views of the right hip HISTORY: Right intertrochanteric femur fracture COMPARISON: None FINDINGS: 2 views of the right hip shows the patient to be status post ORIF of the intertrochanteric femur fracture. No degenerative changes are seen. No soft tissue swelling is present. IMPRESSION: Status post ORIF of intertrochanteric right femur fracture without evidence of complicati on.
[2020-05-03] MEDS: hydrALAZINE 25 MG TAB PO SCH ×2 (16:56→20:08)
--- NOTE | 2020-05-03 19:44 | PRG ---
DATE OF SERVICE: 05/03/2020 SUBJECTIVE: The patient was seen this afternoon during rounds postoperatively after fixation of her right intertrochanteric femur fracture. She was sleepy, but easily arousable. She is normally a little bit confused at baseline. She was at her baseline. She has not had anything to eat or drink since coming back from the OR. OBJECTIVE: VITAL SIGNS: Temperature 98.2, pulse 75, respirations 14, oxygen saturation 95% on room air, blood pressure 143/64. GENERAL: Well-appearing elderly female, lying in bed with no signs of acute distress. PULMONARY: Equal chest rise and fall. Clear breath sounds bilaterally. No signs of acute respiratory distress. CARDIAC: Regular rate and rhythm. GI: Abdomen is soft, nontender, nondistended. EXTREMITIES: 2+ pulses in all extremities. Gross motor and sensation intact. No significant swelling noted. NEUROLOGIC: GCS 15. ENDOCRINE: She is a diabetic. LABORATORY FINDINGS: There are no new laboratory findings to discuss. DIAGNOSTIC FINDINGS: There are no new diagnostic findings to discuss. ASSESSMENT: 1. Status post ground level fall, on Plavix. 2. Right intertrochanteric femur fracture, status post repair. 3. History of end-stage renal disease, on dialysis Wednesday, , Wednesday. 4. Coronary artery disease, hypertension, gastroesophageal reflux disease, peripheral neuropathy, congestive heart failure, and diabetes. PLAN: Change to diabetic diet. Start the patient on home medications as clinically indicated including antihypertensives. Repeat blood work in the morning. Start physical and occupational therapy. The patient will likely need placement at long term facility versus rehab. We have consulted Nephrology. The animator stone polisher to evaluate the patient to arrange for dialysis. This patient was discussed with Dr. Garcia this morning. Job ID: [id number]
[2020-05-03] MEDS: Lisinopril 20 MG TAB PO SCH (20:08)
[2020-05-03] MEDS: Carvedilol 6.25 MG TAB PO SCH (20:13)
[2020-05-03] MEDS: Rosuvastatin 10 MG TAB PO SCH (20:13)
[2020-05-03] MEDS: CEFAZOLIN 2 GM in Premix Bag 1 BAG IVPB SCH (20:14)
[2020-05-04] MEDS: Acetaminophen 325 MG TAB PO SCH ×4 (00:29→17:44)
[2020-05-04] MEDS: Insulin Regular 300 UNITS/3 ML VIAL SC PRN ×2 (00:29→17:44)
[2020-05-04] MEDS: CEFAZOLIN 2 GM in Premix Bag 1 BAG IVPB SCH (03:11)
--- NOTE | 2020-05-04 03:53 | PRG ---
DATE OF SERVICE: 05/04/2020 SUBJECTIVE: The patient is currently on the surgical floor. She is status post ground level fall in which she sustained a right intertrochanteric femur fracture. Today, she underwent dynamic hip screw fixation of that fracture, and she tolerated it well. Tonight, the nurses report that she is still fairly sleepy from her anesthesia. She will awaken and report that she is not having any pain, and she was able to take some p.o. medications. OBJECTIVE: VITAL SIGNS: At the time of my visit, her vital signs were stable. She was afebrile. GENERAL: She appeared in no distress. She was asleep at the time of my visit. As it was close to midnight, I did not awaken her for an exam. PLAN: Plan will be to continue supportive care and begin working on placement. Job ID: [id number]
[2020-05-04 05:58] LABS: Band 12 % (5-11); Hemoglobin 11.6 g/dL (12.0-16.0); Lymphocytes 6 % (21-51); MDiff Complete? YES; Mean Corpuscular HGB CONC 32.3 g/dL (32.0-36.0); Mean Corpuscular Hemoglobin 32.3 pg (27.0-31.0); Mean Platelet Volume 9.1 fL (7.4-10.4); Monocytes 2 % (0-10); Myelocyte 1 % (0-0); Neutrophil 79 % (42-75); Platelet Count 186 thou/uL (130-400); RBC Distribution Width 13.9 % (11.5-14.5); Red Blood Cell (RBC) Count 3.58 mill/uL (4.20-5.40); White Blood Cell (WBC) Count 9.7 thou/uL (4.8-10.8)
[2020-05-04 06:39] LABS: Anion Gap 15 mmol/L (10-20); BUN (Urea Nitrogen) 56 mg/dL (9.8-20.1); Calc. Creatinine Clearance 12 mL/min (70-130); Calcium 8.3 mg/dL (7.8-10.44); Carbon Dioxide 20 mmol/L (23-31); Chloride 107 mmol/L (98-107); Estimated GFR-MDRD 11; Glucose 307 mg/dL (83-110); Magnesium 2.1 mg/dL (1.6-2.6); Phosphorus 4.7 mg/dL (2.3-4.7); Potassium 5.1 mmol/L (3.5-5.1); Sodium 137 mmol/L (136-145)
[2020-05-04] MEDS: hydrALAZINE 25 MG TAB PO SCH ×3 (08:51→20:30)
[2020-05-04] MEDS: Senokot S 8.6-50 MG TAB PO SCH ×2 (08:52→20:15)
[2020-05-04] MEDS: traMADol HCl 50 MG TAB PO SCH ×2 (08:52→20:15)
[2020-05-04] MEDS: Lisinopril 20 MG TAB PO SCH ×2 (08:52→20:30)
[2020-05-04] MEDS: Carvedilol 6.25 MG TAB PO SCH ×2 (08:52→20:15)
[2020-05-04] MEDS: Polyethylene Glycol 3350 17 GM Packet PO SCH (08:53)
[2020-05-04] MEDS: Famotidine/PF 20 mg/2ml Vial SLOW IVP SCH (08:53)
[2020-05-04] MEDS ORDERED: Heparin 10,000 UNITS/ 10 ML VIAL ONE (14:31)
--- NOTE | 2020-05-04 16:47 | PRG ---
DATE OF SERVICE: 05/04/2020 SUBJECTIVE: The patient was seen this morning during rounds. She was sitting up in the bed, sleeping. She was easily arousable. Mildly confused, but much less sleepy than yesterday. She reported her pain is well controlled. She worked with Physical Therapy and she is tolerating her diet. She is pending dialysis today, today is her usual day. OBJECTIVE: VITAL SIGNS: Temperature 97.6, pulse 78, respirations 18, oxygen saturation 95% on room air, blood pressure 96/54. GENERAL: Well-appearing elderly female, lying in bed, resting comfortably with no signs of acute distress. PULMONARY: Equal chest rise and fall, clear breath sounds bilaterally. No signs of acute respiratory distress. CARDIAC: Regular rate and rhythm. GI: Abdomen is soft, nontender, nondistended. EXTREMITIES: 2+ pulses in all extremities. Gross motor and sensation intact. No significant swelling noted. NEUROLOGIC: GCS is 14 to 15, -1 for occasional confusion. LABORATORY FINDINGS: White count 9.7, hemoglobin 11.6, hematocrit 35.8, platelets 186. Sodium 137, potassium 5.1, chloride 107, bicarb 20, BUN 56, creatinine 4.04, glucose 307, phosphorus 4.7, magnesium 2.1. DIAGNOSTIC FINDINGS: There are no new diagnostic findings to discuss. ASSESSMENT: 1. Status post ground level fall, on Plavix. 2. Right intertrochanteric femur fracture, status post repair. 3. History of endstage renal disease, on dialysis, congestive heart failure, diabetes, coronary artery disease, hypertension, gastroesophageal reflux disease, peripheral neuropathy. PLAN: Continue current diet and pain regimen. Continue physical and occupational therapy. We will increase the patient's sliding scale. Start the patient on subcu heparin for DVT prophylaxis. Dialysis per Nephrology. The patient is pending placement at a [facility] facility. Job ID: [id number]
[2020-05-04 16:51] LABS: Hep B Surf Ag NonReactive S/CO (NonReactive)
[2020-05-04] MEDS: Rosuvastatin 10 MG TAB PO SCH (20:15)
[2020-05-04] MEDS: Heparin 5,000 UNITS/ML VIAL SC SCH (20:16)
[2020-05-05] MEDS: Insulin Regular 300 UNITS/3 ML VIAL SC PRN ×4 (00:27→18:11)
[2020-05-05] MEDS: Acetaminophen 325 MG TAB PO SCH ×5 (00:28→23:37)
[2020-05-05 05:41] LABS: #Eosinphils 0.1 thou/uL (0.0-0.7); #Lymphocytes 0.9 thou/uL (1.20-3.40); #Monocytes 0.9 thou/uL (0.11-0.59); #Neutrophils 6.6 thou/uL (1.40-6.50); %Basophils 0.3 % (0.0-1.0); %Eosinophils 0.9 % (0.0-10.0); %Lymphocytes 10.7 % (21.0-51.0); %Monocytes 10.2 % (0.0-10.0); Hemoglobin 10.5 g/dL (12.0-16.0); Mean Corpuscular HGB CONC 32.5 g/dL (32.0-36.0); Mean Corpuscular Hemoglobin 32.1 pg (27.0-31.0); Mean Corpuscular Volume 98.9 fL (78.0-98.0); Mean Platelet Volume 8.6 fL (7.4-10.4); Platelet Count 165 thou/uL (130-400); RBC Distribution Width 13.7 % (11.5-14.5); Red Blood Cell (RBC) Count 3.26 mill/uL (4.20-5.40); White Blood Cell (WBC) Count 8.5 thou/uL (4.8-10.8)
[2020-05-05 05:55] LABS: Anion Gap 14 mmol/L (10-20); BUN (Urea Nitrogen) 31 mg/dL (9.8-20.1); Calc. Creatinine Clearance 16 mL/min (70-130); Carbon Dioxide 26 mmol/L (23-31); Chloride 101 mmol/L (98-107); Estimated GFR-MDRD 14; Glucose 178 mg/dL (83-110); Magnesium 1.9 mg/dL (1.6-2.6); Phosphorus 4.1 mg/dL (2.3-4.7); Potassium 3.9 mmol/L (3.5-5.1); Sodium 137 mmol/L (136-145)
--- NOTE | 2020-05-05 06:33 | PRG ---
DATE OF SERVICE: 05/05/2020 The patient remains on the surgical floor. She is status post ground level fall when she sustained a right intertrochanteric femur fracture. She has undergone operative intervention for that yesterday. Today, she underwent dialysis. She tolerated those well. She is beginning to work with Physical and Occupational Therapy and is awaiting placement likely to a skilled facility. The patient's pain is controlled. Her vital signs are stable and she is afebrile. PLAN: Plan will be to continue supportive care and await placement. Job ID: [id number]
[2020-05-05] MEDS: Carvedilol 6.25 MG TAB PO SCH ×2 (09:47→20:55)
[2020-05-05] MEDS: Senokot S 8.6-50 MG TAB PO SCH ×2 (09:47→20:54)
[2020-05-05] MEDS: traMADol HCl 50 MG TAB PO SCH ×2 (09:48→20:43)
[2020-05-05] MEDS: Furosemide 40 MG TAB PO SCH (09:48)
[2020-05-05] MEDS: hydrALAZINE 25 MG TAB PO SCH ×3 (09:49→20:54)
[2020-05-05] MEDS: Lisinopril 20 MG TAB PO SCH ×2 (09:49→20:55)
[2020-05-05] MEDS: Heparin 5,000 UNITS/ML VIAL SC SCH (09:49)
[2020-05-05] MEDS: Famotidine/PF 20 mg/2ml Vial SLOW IVP SCH (09:49)
[2020-05-05] MEDS: Polyethylene Glycol 3350 17 GM Packet PO SCH (09:50)
--- NOTE | 2020-05-05 13:28 | PRG ---
DATE OF SERVICE: 05/05/2020 SUBJECTIVE: An 84-year-old female being seen for end-stage renal disease. The patient denies any nausea, vomiting, or chest pain. OBJECTIVE: GENERAL: The patient is awake and alert. VITAL SIGNS: Afebrile, pulse 82, breathing at 16, blood pressure 92/49. HEENT: Head normocephalic and atraumatic. Eyes intact, no ulcers. Nose intact, no ulcers. Ears intact, no ulcers. NECK: Supple. No JVD. CHEST: Symmetrical and clear. CARDIOVASCULAR: Shows S1 and S2, no rub, no murmur. GASTROINTESTINAL: Abdomen is soft, bowel sounds positive. EXTREMITIES: Show no edema or ulcers. SKIN: Shows no rash or petechiae. MUSCULOSKELETAL: Shows no joint swelling or stiffness. GENITOURINARY: Shows no Samuels or CVA tenderness. NEUROLOGIC: Motor intact. Cranial nerves intact. LABORATORY DATA: Reviewed. ASSESSMENT AND PLAN: 1. Stage 6 chronic kidney disease. Plan dialysis per schedule; Wednesday, , Wednesday. 2. Hypertension, stable. 3. Anemia, stable. 4. Medication based on GFR appropriate. Job ID: [id number]
--- NOTE | 2020-05-05 13:44 | CON ---
DATE OF CONSULTATION: 05/04/2020 REASON FOR CONSULTATION: For maintenance hemodialysis. HISTORY OF PRESENT ILLNESS: This is an 84-year-old female, presented to the hospital, and is on dialysis Wednesday, , Wednesday, and I was consulted today for routine maintenance hemodialysis. PAST MEDICAL HISTORY: Significant for hypertension, anemia, end-stage renal disease, appendectomy, congestive heart failure, stomach surgery, dementia. SOCIAL HISTORY: No alcohol or drug use. FAMILY HISTORY: Negative for ESRD. ALLERGIES: REVIEWED. MEDICATIONS: Home medications: List reviewed. Hospital medications: Reviewed. REVIEW OF SYSTEMS: A 15-point review of system was performed, negative except for positives noted above. HEENT: Eyes intact, no diplopia. Ears: No hearing loss or earache. Nose: No discharge or bleeding. CHEST: No cough or phlegm. Abdomen: No nausea or vomiting. GENITOURINARY: No hematuria. No Samuels catheter. MUSCULOSKELETAL: No low back pain. No joint swelling or pain. NEUROLOGICAL: No syncope. No seizures. SKIN: No complaints of rash or itching. PSYCHIATRIC: No depression. CONSTITUTIONAL: No weight loss or loss of appetite. PHYSICAL EXAMINATION: GENERAL: The patient is awake, alert. VITAL SIGNS: Pulse 75, breathing 16, blood pressure 130/70. HEENT: Head normocephalic and atraumatic. Eyes intact, no ulcers. Nose intact, no ulcers. Ears intact, no ulcers. NECK: Supple. No JVD. CHEST: Symmetrical and clear. CARDIOVASCULAR: Shows S1 and S2, no rub, no murmur. GASTROINTESTINAL: Abdomen is soft, bowel sounds positive. EXTREMITIES: Show no edema or ulcers. SKIN: Shows no rash or petechiae. MUSCULOSKELETAL: Shows no joint swelling or stiffness. GENITOURINARY: Shows no Samuels or CVA tenderness. NEUROLOGIC: Motor intact. Cranial nerves intact. LABS: Reviewed. ASSESSMENT AND PLAN: 1. Stage 6 chronic kidney disease. Plan dialysis. 2. Hypertension, stable. 3. Anemia, stable. Medication based on GFR appropriate. Job ID: [id number]
--- NOTE | 2020-05-05 16:21 | PRG ---
DATE OF SERVICE: 05/05/2020 SUBJECTIVE: The patient was seen this morning during rounds. She was sitting up having lunch with no signs of acute distress. She reported pain is well controlled and had no pain unless working with physical therapy. Tolerating her diet. Had dialysis yesterday. Voiding without difficulty. OBJECTIVE: VITAL SIGNS: Temperature 98.2, pulse 81, respirations 16, oxygen saturation 94% on room air, and blood pressure 118/49. GENERAL: Well-appearing elderly female, sitting up in bed having lunch with no signs of acute distress. PULMONARY: Equal chest rise and fall. Clear breath sounds bilaterally. No signs of acute respiratory distress. CARDIAC: Regular rate and rhythm. GI: Abdomen is soft, nontender, and nondistended. EXTREMITIES: 2+ pulses in all extremities. Gross motor and sensations intact. No significant swelling noted. NEURO: GCS is 14, -1 for confusion. LABORATORY FINDINGS: White count 8.5, hemoglobin 10.5, hematocrit 32.3, and platelets 165. Sodium 137, potassium 3.9, chloride 101, bicarb 26, BUN 31, creatinine 3.20, glucose 178, phosphorus 4.1, and magnesium 1.9. DIAGNOSTIC FINDINGS: There are no new diagnostic findings to report. ASSESSMENT: 1. Status post ground level fall on Plavix. 2. Right intertrochanteric femur fracture. 3. History of end-stage renal disease, on dialysis Wednesday, , and Wednesday; congestive heart failure; diabetes; coronary artery disease; hypertension; gastroesophageal reflux disease; and peripheral neuropathy. PLAN: Continue current diet and pain regimen. Continue physical and occupational therapy. We will discontinue previously started subcu heparin for DVT prophylaxis and just start the patient on her home Plavix for DVT prophylaxis. She will continue to work with Therapy and get dialysis while she is here. She is pending placement to custodial facility. She is ready for discharge at this time. Job ID: [id number]
[2020-05-05] MEDS: Rosuvastatin 10 MG TAB PO SCH (20:54)
[2020-05-06] MEDS: Insulin Regular 300 UNITS/3 ML VIAL SC PRN ×3 (00:43→12:27)
[2020-05-06] MEDS ORDERED: cloNIDine 0.1 MG TAB PO SCH (04:15)
[2020-05-06 05:09] LABS: #Eosinphils 0.1 thou/uL (0.0-0.7); #Lymphocytes 1.2 thou/uL (1.20-3.40); #Monocytes 1.1 thou/uL (0.11-0.59); #Neutrophils 6.4 thou/uL (1.40-6.50); %Basophils 0.5 % (0.0-1.0); %Eosinophils 1.6 % (0.0-10.0); %Lymphocytes 13.1 % (21.0-51.0); %Monocytes 12.1 % (0.0-10.0); %Neutrophils 72.7 % (42.0-75.0); Hemoglobin 10.7 g/dL (12.0-16.0); Mean Platelet Volume 8.3 fL (7.4-10.4); Platelet Count 185 thou/uL (130-400); RBC Distribution Width 13.7 % (11.5-14.5); Red Blood Cell (RBC) Count 3.25 mill/uL (4.20-5.40); White Blood Cell (WBC) Count 8.8 thou/uL (4.8-10.8)
[2020-05-06 05:39] LABS: Anion Gap 14 mmol/L (10-20); BUN (Urea Nitrogen) 49 mg/dL (9.8-20.1); Calc. Creatinine Clearance 11 mL/min (70-130); Calcium 8.4 mg/dL (7.8-10.44); Carbon Dioxide 25 mmol/L (23-31); Chloride 100 mmol/L (98-107); Estimated GFR-MDRD 9; Glucose 235 mg/dL (83-110); Phosphorus 4.2 mg/dL (2.3-4.7); Potassium 4.1 mmol/L (3.5-5.1); Sodium 135 mmol/L (136-145)
[2020-05-06] MEDS: Acetaminophen 325 MG TAB PO SCH ×4 (05:59→17:51)
[2020-05-06] MEDS: Cyclobenzaprine 10 MG TAB PO PRN (06:18)
[2020-05-06] MEDS: Carvedilol 6.25 MG TAB PO SCH ×2 (08:07→21:03)
[2020-05-06] MEDS: Furosemide 40 MG TAB PO SCH (08:09)
[2020-05-06] MEDS: traMADol HCl 50 MG TAB PO SCH ×2 (08:09→21:03)
[2020-05-06] MEDS: Senokot S 8.6-50 MG TAB PO SCH ×2 (08:11→21:02)
[2020-05-06] MEDS: hydrALAZINE 25 MG TAB PO SCH ×3 (08:12→21:02)
[2020-05-06] MEDS: Lisinopril 20 MG TAB PO SCH ×2 (08:12→21:01)
[2020-05-06] MEDS: Clopidogrel Bisulfate 75 MG TAB PO SCH (08:13)
[2020-05-06] MEDS: Famotidine/PF 20 mg/2ml Vial SLOW IVP SCH (08:13)
[2020-05-06] MEDS: Polyethylene Glycol 3350 17 GM Packet PO SCH (08:14)
--- NOTE | 2020-05-06 12:32 | PRG ---
DATE OF SERVICE: 05/06/2020 SUBJECTIVE: Patient was seen and examined at bedside and overnight events noted. Patient denies any shortness of breath or chest pain or palpitation. No history of nausea or vomiting or diarrhea or fever or chills or cramps. OBJECTIVE: GENERAL: This is a well-built female, in no apparent distress. VITAL SIGNS: Temperature 98.5. Heart rate 80. Respiratory rate 18. Blood pressure 171/67. HEENT: Atraumatic, normocephalic. Oral mucosa is moist. NECK: Supple. CARDIOVASCULAR: S1, S2 heard. Rate and rhythm regular. RESPIRATORY: Clear to auscultation. GASTROINTESTINAL: Abdomen is soft. MUSCULOSKELETAL: No tenderness. No edema. DERMATOLOGIC: No skin rash. NEUROLOGIC: Alert and awake and oriented x3. No focal neurologic deficits. Moving all the extremities. PSYCHIATRIC: Mood and affect normal. LABORATORY DATA: Potassium 4.1, BUN is 49, and creatinine is 4.6. ASSESSMENT AND PLAN: 1. End-stage renal disease. Continue dialysis on TTS as tolerated. 2. Hypertension. 3. Anemia . 4. Edema, controlled. We will continue on dialysis as tolerated. Job ID: [id number]
--- NOTE | 2020-05-06 19:03 | PRG ---
DATE OF SERVICE: 05/06/2020 SUBJECTIVE: The patient was seen this morning during rounds. She was very mildly confused, but pleasant, and she was reoriented. She was about to start working with Physical Therapy and tolerating her diet, voiding. OBJECTIVE: VITAL SIGNS: Temperature 98.5, pulse 79, respirations 12, oxygen saturation 95% on room air, and blood pressure 131/53. GENERAL: Well-appearing elderly female, sitting up in bed with no signs of acute distress. PULMONARY: Equal chest rise and fall. Clear breath sounds bilaterally. No signs of acute respiratory distress. Right-sided anterior chest wall dialysis catheter in place. CARDIAC: Regular rate and rhythm. GI: Abdomen is soft, nontender, nondistended. EXTREMITIES: 2+ pulses in all extremities. Gross motor and sensation are intact. No significant swelling noted. NEURO: GCS is 15, -1 for confusion. LABORATORY FINDINGS: White count 8.8, hemoglobin 10.7, hematocrit 32.5, and platelets 185. Sodium 135, potassium 4.1, chloride 100, bicarb 25, BUN 49, creatinine 4.61, glucose 235, phosphorus 4.2, and magnesium 2.0. DIAGNOSTIC FINDINGS: There are no new diagnostic findings to discuss. ASSESSMENT: 1. Status post ground level fall, on Plavix. 2. Right intertrochanteric femur fracture, status post repair. 3. History of end-stage renal disease, congestive heart failure, diabetes, CAD, hypertension, gastroesophageal reflux disease, and peripheral neuropathy. PLAN: Continue current diet and pain regimen. Continue physical and occupational therapies. Continue supportive care. Continue dialysis per Nephrology. The patient is pending insurance authorization for group home facility. She is ready for discharge at this time. Job ID: [id number]
[2020-05-06] MEDS: Rosuvastatin 10 MG TAB PO SCH (21:02)
[2020-05-07] MEDS: Acetaminophen 325 MG TAB PO SCH ×5 (00:02→23:46)
[2020-05-07] MEDS: Insulin Regular 300 UNITS/3 ML VIAL SC PRN ×4 (00:21→21:07)
--- NOTE | 2020-05-07 00:39 | PRG ---
DATE OF SERVICE: 05/06/2020 SUBJECTIVE: The patient was seen during evening rounds on the surgical floor, awake and alert, in no distress. The patient's son is currently at bedside. The patient voices no complaints or concerns. The patient is tolerating a diabetic diet. OBJECTIVE: VITAL SIGNS: Stable. The patient is afebrile. Urinary output is adequate for the patient's age and weight. PLAN: Continue supportive care and pain regimen. Continue diabetic diet. Continue PT and OT. The patient is pending insurance authorization for nursing home facility. The patient is ready for discharge at this time. Continue dialysis per Nephrology. Job ID: [id number]
[2020-05-07] MEDS: Senokot S 8.6-50 MG TAB PO SCH ×2 (08:48→21:01)
[2020-05-07] MEDS: traMADol HCl 50 MG TAB PO SCH ×2 (08:49→21:02)
[2020-05-07] MEDS: Furosemide 40 MG TAB PO SCH (08:49)
[2020-05-07] MEDS: Clopidogrel Bisulfate 75 MG TAB PO SCH (08:50)
[2020-05-07] MEDS: Famotidine/PF 20 mg/2ml Vial SLOW IVP SCH (08:51)
[2020-05-07] MEDS: Diclofenac 1% 100 GM GEL TP SCH ×4 (08:58→21:02)
--- NOTE | 2020-05-07 09:10 | RAD ---
EXAM: XR Wrist Lt 2 View PROVIDED CLINICAL HISTORY: Pain FINDINGS: There is no evidence for fracture or other acute osseous abnormality. Alignment appears anatomic. Deg enerative changes are seen at the first CMC and STT joints. Conspicuous vascular calcification. IMPRESSION: No evidence for an acute osseous abnormality. If there is persistent clinical concern, conservative m anagement and follow-up imaging advised.
[2020-05-07] MEDS: Carvedilol 6.25 MG TAB PO SCH ×3 (09:29→21:02)
[2020-05-07] MEDS: hydrALAZINE 25 MG TAB PO SCH ×3 (09:30→21:01)
[2020-05-07] MEDS: Polyethylene Glycol 3350 17 GM Packet PO SCH (09:30)
[2020-05-07] MEDS: Lisinopril 20 MG TAB PO SCH ×2 (09:30→21:01)
[2020-05-07] MEDS ORDERED: Heparin 10,000 UNITS/ 10 ML VIAL ONE (09:34)
--- NOTE | 2020-05-07 11:55 | PRG ---
DATE OF SERVICE: 05/07/2020 SUBJECTIVE: Patient was seen and examined at bedside and overnight events noted. Patient denies any shortness of breath or chest pain or palpitation. No history of nausea or vomiting or diarrhea or fever or chills or cramps. OBJECTIVE: GENERAL: This is a well-built female, in no apparent distress. VITAL SIGNS: Temperature 97.9. Heart Rate 73. Respiratory rate 16. Blood pressure 151/67. HEENT: Atraumatic, normocephalic. Oral mucosa is moist. NECK: Supple. CARDIOVASCULAR: S1, S2 heard. Rate and rhythm regular. RESPIRATORY: Clear to auscultation. GASTROINTESTINAL: Abdomen is soft. MUSCULOSKELETAL: No tenderness. No edema. DERMATOLOGIC: No skin rash. NEUROLOGIC: Alert and awake and oriented x3. No focal neurologic deficits. Moving all the extremities. PSYCHIATRIC: Mood and affect normal. LABORATORY DATA: Not done today. ASSESSMENT AND PLAN: 1. End-stage renal disease. We will continue dialysis on Wednesday, , and Wednesday as tolerated. 2. Hypertension. We will remove fluid. 3. Anemia of chronic disease. 4. Edema. We will continue to remove fluid with dialysis as tolerated. The patient is seen during dialysis today, tolerating well. We will continue dialysis as tolerated. Job ID: [id number]
[2020-05-07] MEDS: INSULIN GLARGINE SC SCH (13:41)
--- NOTE | 2020-05-07 14:00 | PRG ---
DATE OF SERVICE: 05/07/2020 SUBJECTIVE: This is an 84-year-old female, who is hospital day #4, post injury day #4, status post ORIF of a right hip fracture. ESRD, sugars have been somewhat out of control since she has been here, glucose now in 300s, she is on sliding scale insulin. However, she feels well. She is seen on morning rounds after dialysis. Her blood pressure was high predialysis and that has normalized. Initially, we had increased the carvedilol, we are going to go back down to her usual dose. The patient reports no other distress. OBJECTIVE: VITAL SIGNS: Temperature is 98.0, blood pressure is 117/48, heart rate is 82, breathing 16 times per minute, and 98% on room air. GENERAL: An 84-year-old female, sitting up, in no acute distress. HEENT: Normocephalic and atraumatic. RESPIRATORY: Equal rise and fall. CHEST: She has a right PermCath in place. Equal rise and fall. CARDIOVASCULAR: She has strong pulses. Regular rhythm. ABDOMEN: Soft. MUSCULOSKELETAL: She has a dry dressing to the right hip. Moves her extremities. No complaints. PSYCH: Normal mood and affect. NEUROLOGIC: Alert and oriented to person, place, time, and event. LABORATORY DATA: Glucose of 319 today. ASSESSMENT: 1. Mechanical fall, on Plavix. 2. Right intertrochanteric hip fracture, status post repair on 05/03. 3. History of end-stage renal disease, congestive heart failure, diabetes, coronary artery disease, hypertension, reflux, and peripheral neuropathy. 4. Hyperglycemia without evidence of diabetic ketoacidosis. PLAN: 1. We will add Levemir to the aggressive sliding scale insulin. Monitor glucose. 2. Monitor blood pressure. Advised to go ahead with Coreg today and will stay with her usual dose. 3. Continue all other supportive care. 4. Discussed with Social Work and the patient has been sent to [facility] and we are still awaiting insurance approval for her senior living facility. We will start her on heparin for DVT prophylaxis today. 5. Updated the patient and the bedside RN and answered all questions of the same. Job ID: [id number]
[2020-05-07] MEDS: Cyclobenzaprine 10 MG TAB PO PRN (15:24)
[2020-05-07] MEDS: Heparin 5,000 UNITS/ML VIAL SC SCH ×2 (15:24→21:01)
[2020-05-07] MEDS: Rosuvastatin 10 MG TAB PO SCH (21:01)
[2020-05-08] MEDS: Acetaminophen 325 MG TAB PO SCH ×2 (05:40→11:22)
[2020-05-08] MEDS: Diclofenac 1% 100 GM GEL TP SCH ×3 (08:36→15:58)
[2020-05-08] MEDS: Senokot S 8.6-50 MG TAB PO SCH (08:43)
[2020-05-08] MEDS: Cyclobenzaprine 10 MG TAB PO PRN (08:44)
[2020-05-08] MEDS: Carvedilol 6.25 MG TAB PO SCH (08:45)
[2020-05-08] MEDS: traMADol HCl 50 MG TAB PO SCH (08:45)
[2020-05-08] MEDS: Famotidine/PF 20 mg/2ml Vial SLOW IVP SCH (08:46)
[2020-05-08] MEDS: Furosemide 40 MG TAB PO SCH (08:46)
[2020-05-08] MEDS: Heparin 5,000 UNITS/ML VIAL SC SCH ×2 (08:46→14:23)
[2020-05-08] MEDS: Clopidogrel Bisulfate 75 MG TAB PO SCH (08:50)
[2020-05-08] MEDS: INSULIN GLARGINE SC SCH (08:51)
[2020-05-08] MEDS: hydrALAZINE 25 MG TAB PO SCH ×2 (08:51→14:21)
[2020-05-08] MEDS: Lisinopril 20 MG TAB PO SCH (08:51)
[2020-05-08] MEDS: Polyethylene Glycol 3350 17 GM Packet PO SCH (08:52)
[2020-05-08] MEDS: Insulin Regular 300 UNITS/3 ML VIAL SC PRN ×2 (11:22→16:00)
--- NOTE | 2020-05-08 11:53 | PRG ---
DATE OF SERVICE: 05/08/2020 SUBJECTIVE: Patient was seen and examined at bedside and overnight events noted. Patient denies any shortness of breath or chest pain or palpitation. No history of nausea or vomiting or diarrhea or fever or chills or cramps. OBJECTIVE: GENERAL: This is a well-built female, in no acute distress. VITAL SIGNS: Temperature 98.5. Heart rate 81. Respiratory rate 18. Blood pressure 131/68. HEENT: Atraumatic, normocephalic. Oral mucosa is moist NECK: Supple. CARDIOVASCULAR: S1, S2 heard. Rate and rhythm regular. RESPIRATORY: Clear to auscultation. GASTROINTESTINAL: Abdomen is soft. MUSCULOSKELETAL: No tenderness. No edema. DERMATOLOGIC: No skin rash. NEUROLOGIC: Alert and awake and oriented X3. No focal neurologic deficits. Moving all the extremities. PSYCHIATRIC: Mood and affect normal. LABORATORY DATA: Not done today. ASSESSMENT AND PLAN: 1. End-stage renal disease, continue dialysis. 2. Edema, controlled. 3. Hypertension. 4. Anemia of chronic disease. Plan to continue on dialysis as tolerated. Job ID: [id number]
[2020-05-08 15:36] VITALS: BP 112/56; TEMP 98.1
== END 2020-05-08 17:27 | DRG 480 ==
LOC: ERS 22:34 → ERHOLD 05-03 00:26 → SURG B 05-03 02:51
PROVIDERS: ADMIT Specialist; ATTEND Specialist
PROC: 0QS634Z Reposition Right Upper Femur with Internal Fixation Device, Percutaneous Approach (ICD-10-PCS; principal; 2020-05-03)
PROC: 5A1D70Z Performance of Urinary Filtration, Intermittent, Less than 6 Hours Per Day (ICD-10-PCS; 2020-05-04)
DX: S72.144A Nondisplaced intertrochanteric fracture of right femur, initial encounter for closed fracture (principal); N18.6 End stage renal disease; I13.2 Hypertensive heart and chronic kidney disease with heart failure and with stage 5 chronic kidney disease, or end stage renal disease; Z20.828 Contact with and (suspected) exposure to other viral communicable diseases; E78.5 Hyperlipidemia, unspecified; I50.9 Heart failure, unspecified; E11.22 Type 2 diabetes mellitus with diabetic chronic kidney disease; I25.10 Atherosclerotic heart disease of native coronary artery without angina pectoris; W18.30XA Fall on same level, unspecified, initial encounter; K21.9 Gastro-esophageal reflux disease without esophagitis; F03.90 Unspecified dementia, unspecified severity, without behavioral disturbance, psychotic disturbance, mood disturbance, and anxiety; E11.42 Type 2 diabetes mellitus with diabetic polyneuropathy; D63.1 Anemia in chronic kidney disease; E11.65 Type 2 diabetes mellitus with hyperglycemia; Z86.73 Personal history of transient ischemic attack (TIA), and cerebral infarction without residual deficits; Z90.49 Acquired absence of other specified parts of digestive tract; Z99.2 Dependence on renal dialysis; Z79.899 Other long term (current) drug therapy; Z79.02 Long term (current) use of antithrombotics/antiplatelets; Y92.009 Unspecified place in unspecified non-institutional (private) residence as the place of occurrence of the external cause; Z79.4 Long term (current) use of insulin
CPT/HCPCS: 36415; 36416; 71045; 76000; 80048; 80053; 83735; 84100; 84484; 85007; 85025; 85027; 85610; 85730; 86850; 86900; 86901; 87340; 87635; 90935; 93005; C1713; G0257; G0390; J0690; J1644; J1815; J2270; J2370; J2405; J3010; S0028; U0003

== ENCOUNTER 2020-05-29 07:01 | Day surgery (SDC) | payer MEDICARE ==
[2020-05-28 13:38] VITALS: BMI 31.3
[2020-05-29 10:56] VITALS: BP 140/60; TEMP 97.2
--- NOTE | 2020-05-29 11:28 | SPC ---
Dialysis fistulogram left upper extremity Percutaneous balloon angioplasty left upper extremity dialysis fistula Sonographic guided vascular access HISTORY: Renal failure. Poor maturation of left arm dialysis fistula Fluoroscopy time 1.7 minutes. FINDINGS: After explaining the procedure and answering all questions, sonographic evaluation of the l eft upper arm dialysis fistula was performed. Radial artery anastomosis to the cephalic vein just below the antecubital fossa is patent. Good flow within the antecubital vein, brachial vein, basilic vein, and cephalic vein. A focal area of narrowing was noted within the cephalic vein at the antecubital fossa, so that a more proximal access was planned, directed towards the arterial anastomo sis. Sterile technique, buffered local anesthesia, sonographic guidance, and a 22-gauge needle were used t o carefully access the left cephalic fistula at the level of the proximal humeral shaft, directed towards the arterial inflow. A 4 Mongolian micropuncture sheath was placed for serial imaging, showing the cephalic dialysis fistula to be patent, although not well dilated. A few small collateral branches were present. Good central outflow to the superior vena cava. Reflux angiography shows a focal area of severe narrowing at the l evel of the antecubital fossa. Arterial anastomosis, although well visualized sonographically, was difficult to opacify due to decompression and good outflow through the basilic vein. 4 Mongolian micropuncture sheath was replaced with a short 6 Mongolian sheath, through which a 0.035 Glidew nivia and dilatation balloon 6 mm x 4 cm was placed to the level of the stricture at the antecubital fossa. Full bone profile was achieved, relieving a stricture on the first dilatation. A total of 3 dilatatio ns were performed. Repeat angiography shows spiritism of normal caliber at the antecubital fossa. Improved arterial fl ow throughout the cephalic fistula. Sheath was removed and hemostasis obtained using direct pressure. Patient tolerated the procedure wel l and was eventually dismissed in good condition. IMPRESSION : Technically successful balloon angioplasty of focal stricture of the cephalic fistula at the antecubi harrison fossa, improving caliber and flow.
--- NOTE | 2020-05-30 11:56 | SPC ---
Dialysis fistulogram left upper extremity Percutaneous balloon angioplasty left upper extremity dialysis fistula Sonographic guided vascular access HISTORY: Renal failure. Poor maturation of left arm dialysis fistula Fluoroscopy time 1.7 minutes. FINDINGS: After explaining the procedure and answering all questions, sonographic evaluation of the l eft upper arm dialysis fistula was performed. Radial artery anastomosis to the cephalic vein just below the antecubital fossa is patent. Good flow within the antecubital vein, brachial vein, basilic vein, and cephalic vein. A focal area of narrowing was noted within the cephalic vein at the antecubital fossa, so that a more proximal access was planned, directed towards the arterial anastomo sis. Sterile technique, buffered local anesthesia, sonographic guidance, and a 22-gauge needle were used t o carefully access the left cephalic fistula at the level of the proximal humeral shaft, directed towards the arterial inflow. A 4 Algerian micropuncture sheath was placed for serial imaging, showing the cephalic dialysis fistula to be patent, although not well dilated. A few small collateral branches were present. Good central outflow to the superior vena cava. Reflux angiography shows a focal area of severe narrowing at the l evel of the antecubital fossa. Arterial anastomosis, although well visualized sonographically, was difficult to opacify due to decompression and good outflow through the basilic vein. 4 Algerian micropuncture sheath was replaced with a short 6 Algerian sheath, through which a 0.035 Glidew nivia and dilatation balloon 6 mm x 4 cm was placed to the level of the stricture at the antecubital fossa. Full bone profile was achieved, relieving a stricture on the first dilatation. A total of 3 dilatatio ns were performed. Repeat angiography shows christianity of normal caliber at the antecubital fossa. Improved arterial fl ow throughout the cephalic fistula. Sheath was removed and hemostasis obtained using direct pressure. Patient tolerated the procedure wel l and was eventually dismissed in good condition. IMPRESSION : Technically successful balloon angioplasty of focal stricture of the cephalic fistula at the antecubi harrison fossa, improving caliber and flow. Transcribed Date/Time: 05/30/2020 11:56 AM
== END 2020-05-29 10:10 | disposition home or self-care (01) ==
LOC: SPEC 07:01
PROVIDERS: ATTEND Specialist
PROC: 05WY3KZ Revision of Nonautologous Tissue Substitute in Upper Vein, Percutaneous Approach (ICD-10-PCS; principal; 2020-05-29)
DX: T82.898A Other specified complication of vascular prosthetic devices, implants and grafts, initial encounter (principal); I13.2 Hypertensive heart and chronic kidney disease with heart failure and with stage 5 chronic kidney disease, or end stage renal disease; E11.22 Type 2 diabetes mellitus with diabetic chronic kidney disease; N18.6 End stage renal disease; I50.9 Heart failure, unspecified; I25.10 Atherosclerotic heart disease of native coronary artery without angina pectoris; E78.00 Pure hypercholesterolemia, unspecified; Z86.73 Personal history of transient ischemic attack (TIA), and cerebral infarction without residual deficits; Z79.02 Long term (current) use of antithrombotics/antiplatelets; Z79.4 Long term (current) use of insulin; Z79.899 Other long term (current) drug therapy
CPT/HCPCS: 36901; 36904; C1725

== ENCOUNTER 2020-12-06 15:16 | Inpatient (IN) | payer MEDICARE ==
[2020-12-06 16:00] LABS: #Basophils 0.1 thou/uL (0.0-0.2); #Eosinphils 0.2 thou/uL (0.0-0.7); #Lymphocytes 1.4 thou/uL (1.20-3.40); #Neutrophils 5.3 thou/uL (1.40-6.50); %Basophils 0.9 % (0.0-1.0); %Eosinophils 2.6 % (0.0-10.0); %Lymphocytes 17.9 % (21.0-51.0); %Monocytes 12.1 % (0.0-10.0); %Neutrophils 66.5 % (42.0-75.0); Hemoglobin 12.6 g/dL (12.0-16.0); Mean Corpuscular HGB CONC 32.8 g/dL (32.0-36.0); Mean Corpuscular Hemoglobin 32.3 pg (27.0-31.0); Mean Corpuscular Volume 98.6 fL (78.0-98.0); Mean Platelet Volume 8.1 fL (7.4-10.4); Platelet Count 219 thou/uL (130-400); RBC Distribution Width 13.2 % (11.5-14.5); Red Blood Cell (RBC) Count 3.91 mill/uL (4.20-5.40)
[2020-12-06 16:24] LABS: ALT (SGPT) 17 U/L (8-55); AST (SGOT) 23 U/L (5-34); Albumin 3.3 g/dL (3.4-4.8); Alkaline Phosphatase 87 U/L (40-110); Anion Gap 13 mmol/L (10-20); BUN (Urea Nitrogen) 31 mg/dL (9.8-20.1); Bilirubin, Total 0.4 mg/dL (0.2-1.2); Calc. Creatinine Clearance 0 mL/min (70-130); Carbon Dioxide 28 mmol/L (23-31); Chloride 101 mmol/L (98-107); Globulin 3.2 g/dL (2.4-3.5); Glucose 71 mg/dL (83-110); Potassium 4.2 mmol/L (3.5-5.1); Protein, Total 6.5 g/dL (5.8-8.1); Sodium 138 mmol/L (136-145)
[2020-12-06] MEDS ORDERED: Aspirin Chewable 81 MG TAB ONE (16:37)
[2020-12-06] MEDS ORDERED: Dextrose 50% Abboject 50 ML SYRINGE ONE (17:10)
[2020-12-06 20:01] VITALS: BMI 28.1
[2020-12-06] MEDS ORDERED: Dextrose 50% Abboject 50 ML SYRINGE SLOW IVP PRN (20:19)
[2020-12-06] MEDS ORDERED: Dextrose 5% in Water 1,000 ML IV PRN (20:19)
[2020-12-06] MEDS ORDERED: HumaLOG 300 UNITS/3 ML VIAL SC PRN (20:19)
[2020-12-06] MEDS ORDERED: Furosemide 40 MG TAB PO PRN (20:55)
[2020-12-06] MEDS: hydrALAZINE 25 MG TAB PO SCH (22:08)
[2020-12-06] MEDS: Gabapentin 400 MG CAP PO SCH (22:08)
[2020-12-06] MEDS: Carvedilol 25 MG TAB PO SCH (22:08)
[2020-12-06] MEDS: Heparin 5,000 UNITS/ML VIAL SC SCH (22:10)
[2020-12-06 23:59] LABS: Troponin I 0.028 ng/mL (< 0.028)
[2020-12-07 01:01] LABS: SARS-CoV-2 PCR by NAA Not Detected (NotDetected)
[2020-12-07] MEDS: Acetaminophen 325 MG TAB PO PRN ×2 (02:06→20:31)
[2020-12-07 04:44] LABS: #Basophils 0.1 thou/uL (0.0-0.2); #Eosinphils 0.2 thou/uL (0.0-0.7); #Lymphocytes 1.5 thou/uL (1.20-3.40); #Monocytes 0.7 thou/uL (0.11-0.59); #Neutrophils 2.8 thou/uL (1.40-6.50); %Eosinophils 4.5 % (0.0-10.0); %Lymphocytes 28.1 % (21.0-51.0); %Monocytes 12.5 % (0.0-10.0); %Neutrophils 53.9 % (42.0-75.0); Hemoglobin 11.9 g/dL (12.0-16.0); Mean Corpuscular HGB CONC 31.3 g/dL (32.0-36.0); Mean Corpuscular Hemoglobin 30.8 pg (27.0-31.0); Mean Corpuscular Volume 98.4 fL (78.0-98.0); Mean Platelet Volume 8.3 fL (7.4-10.4); Platelet Count 209 thou/uL (130-400); RBC Distribution Width 13.2 % (11.5-14.5); Red Blood Cell (RBC) Count 3.85 mill/uL (4.20-5.40); White Blood Cell (WBC) Count 5.2 thou/uL (4.8-10.8)
[2020-12-07 05:04] LABS: Anion Gap 13 mmol/L (10-20); BUN (Urea Nitrogen) 36 mg/dL (9.8-20.1); Calc. Creatinine Clearance 12 mL/min (70-130); Calcium 8.6 mg/dL (7.8-10.44); Carbon Dioxide 28 mmol/L (23-31); Chloride 100 mmol/L (98-107); Glucose 254 mg/dL (83-110); Potassium 4.5 mmol/L (3.5-5.1); Sodium 136 mmol/L (136-145)
[2020-12-07] MEDS: Aspirin Chewable 81 MG TAB PO SCH (09:00)
[2020-12-07] MEDS: Lisinopril 10 MG TAB PO SCH ×2 (09:00→20:32)
[2020-12-07] MEDS: hydrALAZINE 25 MG TAB PO SCH ×2 (09:00→20:33)
[2020-12-07] MEDS: Gabapentin 400 MG CAP PO SCH ×2 (09:00→20:32)
[2020-12-07] MEDS: Heparin 5,000 UNITS/ML VIAL SC SCH ×3 (09:00→20:33)
[2020-12-07] MEDS ORDERED: Regadenoson 0.4 MG/5 ML SYRINGE ONE (09:24)
[2020-12-07] MEDS: Carvedilol 25 MG TAB PO SCH ×2 (09:55→20:32)
[2020-12-07] MEDS: HumaLOG 300 UNITS/3 ML VIAL SC PRN (16:54)
[2020-12-08] MEDS: Acetaminophen 325 MG TAB PO PRN (06:28)
[2020-12-08] MEDS: Lisinopril 10 MG TAB PO SCH ×2 (10:24→21:20)
[2020-12-08] MEDS: Aspirin Chewable 81 MG TAB PO SCH (10:24)
[2020-12-08] MEDS: Gabapentin 400 MG CAP PO SCH ×2 (10:24→21:16)
[2020-12-08] MEDS: Carvedilol 25 MG TAB PO SCH ×2 (10:24→21:16)
[2020-12-08] MEDS: hydrALAZINE 25 MG TAB PO SCH ×2 (10:24→21:20)
[2020-12-08] MEDS: Heparin 5,000 UNITS/ML VIAL SC SCH ×3 (10:24→21:24)
[2020-12-08] MEDS: HumaLOG 300 UNITS/3 ML VIAL SC PRN (11:49)
[2020-12-08 14:19] LABS: Anion Gap 11 mmol/L (10-20); BUN (Urea Nitrogen) 35 mg/dL (9.8-20.1); Calc. Creatinine Clearance 11 mL/min (70-130); Calcium 8.2 mg/dL (7.8-10.44); Carbon Dioxide 25 mmol/L (23-31); Chloride 101 mmol/L (98-107); Glucose 351 mg/dL (83-110); Potassium 5.1 mmol/L (3.5-5.1); Sodium 132 mmol/L (136-145)
[2020-12-09] MEDS: Aspirin Chewable 81 MG TAB PO SCH (08:04)
[2020-12-09] MEDS: Gabapentin 400 MG CAP PO SCH ×2 (08:04→20:10)
[2020-12-09] MEDS: hydrALAZINE 25 MG TAB PO SCH ×2 (08:04→20:10)
[2020-12-09] MEDS: Carvedilol 25 MG TAB PO SCH ×2 (08:04→20:09)
[2020-12-09] MEDS: Lisinopril 10 MG TAB PO SCH ×2 (08:04→20:10)
[2020-12-09] MEDS: Heparin 5,000 UNITS/ML VIAL SC SCH ×3 (08:05→20:10)
[2020-12-09] MEDS ORDERED: hydrALAZINE 20 MG/ML VIAL SLOW IVP PRN (08:29)
[2020-12-09] MEDS: Acetaminophen 325 MG TAB PO PRN (09:29)
[2020-12-09] MEDS: HumaLOG 300 UNITS/3 ML VIAL SC PRN (10:40)
[2020-12-09] MEDS ORDERED: HYDROcodone/Acetaminophen 5/325 mg Tablet PO PRN (12:51)
[2020-12-09] MEDS ORDERED: Senokot S 8.6-50 MG TAB PO PRN (12:58)
[2020-12-10] MEDS ORDERED: Iopamidol 300 61% 100 ML VIAL FS ONE (09:16)
[2020-12-10] MEDS: Carvedilol 25 MG TAB PO SCH ×2 (12:31→19:38)
[2020-12-10] MEDS: Gabapentin 400 MG CAP PO SCH ×2 (12:31→19:38)
[2020-12-10] MEDS: Aspirin Chewable 81 MG TAB PO SCH (12:31)
[2020-12-10] MEDS: hydrALAZINE 25 MG TAB PO SCH ×2 (12:32→19:37)
[2020-12-10] MEDS: Heparin 5,000 UNITS/ML VIAL SC SCH ×3 (12:32→19:38)
[2020-12-10] MEDS: Lisinopril 10 MG TAB PO SCH ×2 (12:33→19:37)
[2020-12-10] MEDS: Polyethylene Glycol 3350 17 GM Packet PO SCH (12:34)
[2020-12-10] MEDS: HumaLOG 300 UNITS/3 ML VIAL SC PRN (16:12)
[2020-12-11] MEDS: HumaLOG 300 UNITS/3 ML VIAL SC PRN ×2 (05:56→11:54)
[2020-12-11] MEDS: Gabapentin 400 MG CAP PO SCH (08:49)
[2020-12-11] MEDS: Heparin 5,000 UNITS/ML VIAL SC SCH (08:49)
[2020-12-11] MEDS: Aspirin Chewable 81 MG TAB PO SCH (08:49)
[2020-12-11] MEDS: Polyethylene Glycol 3350 17 GM Packet PO SCH (08:50)
[2020-12-11] MEDS: hydrALAZINE 25 MG TAB PO SCH (09:40)
[2020-12-11] MEDS: Lisinopril 10 MG TAB PO SCH (09:40)
[2020-12-11] MEDS: Carvedilol 25 MG TAB PO SCH (09:40)
[2020-12-11 12:04] VITALS: BP 117/80; TEMP 97.8
== END 2020-12-11 13:24 | disposition home or self-care (01) | DRG 555 ==
LOC: ERS 15:16 → 2SW 18:03 → OBSVTOIN 12-09 12:45
PROVIDERS: ADMIT Internal Medicine; ATTEND Internal Medicine
PROC: 5A1D70Z Performance of Urinary Filtration, Intermittent, Less than 6 Hours Per Day (ICD-10-PCS; principal; 2020-12-07)
PROC: B51W1ZZ Fluoroscopy of Dialysis Shunt/Fistula using Low Osmolar Contrast (ICD-10-PCS; 2020-12-10)
DX: M79.642 Pain in left hand (principal); N18.6 End stage renal disease; I13.0 Hypertensive heart and chronic kidney disease with heart failure and stage 1 through stage 4 chronic kidney disease, or unspecified chronic kidney disease; R07.9 Chest pain, unspecified; Z20.822 Contact with and (suspected) exposure to COVID-19; E78.5 Hyperlipidemia, unspecified; E11.649 Type 2 diabetes mellitus with hypoglycemia without coma; E11.22 Type 2 diabetes mellitus with diabetic chronic kidney disease; I50.9 Heart failure, unspecified; D63.1 Anemia in chronic kidney disease; Y83.2 Surgical operation with anastomosis, bypass or graft as the cause of abnormal reaction of the patient, or of later complication, without mention of misadventure at the time of the procedure; Z79.02 Long term (current) use of antithrombotics/antiplatelets; Z79.4 Long term (current) use of insulin; Z86.73 Personal history of transient ischemic attack (TIA), and cerebral infarction without residual deficits; Z90.49 Acquired absence of other specified parts of digestive tract; Z79.899 Other long term (current) drug therapy
CPT/HCPCS: 36415; 36416; 36901; 71045; 78452; 80048; 80053; 84484; 85025; 90935; 93005; 93017; 96372; 96374; A9500; G0257; G0378; J0360; J1644; J1815; J2785; Q9967; U0003; U0005

== ENCOUNTER 2021-01-03 12:36 | Day surgery (SDC) | payer MEDICARE ==
[2021-01-03 03:34] VITALS: BMI 21.9
[~2021-01-03 12:36] MED LIST: Heparin 1,000 UNITS/ML VIAL ONE; Iopamidol 300 61% 100 ML VIAL FS ONE
[2021-01-03] MEDS ORDERED: Activase 2 MG VIAL CATH SCH (13:45)
[2021-01-03 15:28] VITALS: BP 129/53
== END 2021-01-03 15:15 | disposition home or self-care (01) ==
LOC: SPEC 12:36
PROVIDERS: ATTEND Specialist
PROC: 057F3ZZ Dilation of Left Cephalic Vein, Percutaneous Approach (ICD-10-PCS; principal; 2021-01-03)
DX: T82.868A Thrombosis due to vascular prosthetic devices, implants and grafts, initial encounter (principal); I13.2 Hypertensive heart and chronic kidney disease with heart failure and with stage 5 chronic kidney disease, or end stage renal disease; E11.22 Type 2 diabetes mellitus with diabetic chronic kidney disease; N18.6 End stage renal disease; I50.9 Heart failure, unspecified; D63.1 Anemia in chronic kidney disease; M19.90 Unspecified osteoarthritis, unspecified site; I25.10 Atherosclerotic heart disease of native coronary artery without angina pectoris; E78.5 Hyperlipidemia, unspecified; Z86.73 Personal history of transient ischemic attack (TIA), and cerebral infarction without residual deficits; Z79.4 Long term (current) use of insulin; Z79.82 Long term (current) use of aspirin; Z79.899 Other long term (current) drug therapy; Z99.2 Dependence on renal dialysis
CPT/HCPCS: 36901; 36902; 75902; J2997; C1725; C1757; J1644; Q9967

== ENCOUNTER 2021-03-25 23:47 | Emergency (ER) | payer MEDICARE ==
[2021-03-26 00:44] LABS: #Eosinphils 0.1 thou/uL (0.0-0.7); #Monocytes 0.6 thou/uL (0.11-0.59); #Neutrophils 3.4 thou/uL (1.40-6.50); %Basophils 0.4 % (0.0-1.0); %Eosinophils 2.7 % (0.0-10.0); %Lymphocytes 19.8 % (21.0-51.0); %Neutrophils 66.1 % (42.0-75.0); Hemoglobin 10.4 g/dL (12.0-16.0); Mean Corpuscular HGB CONC 32.9 g/dL (32.0-36.0); Mean Corpuscular Hemoglobin 33.2 pg (27.0-31.0); Mean Platelet Volume 8.2 fL (7.4-10.4); Platelet Count 175 thou/uL (130-400); RBC Distribution Width 13.2 % (11.5-14.5); Red Blood Cell (RBC) Count 3.14 mill/uL (4.20-5.40); White Blood Cell (WBC) Count 5.2 thou/uL (4.8-10.8)
[2021-03-26 01:09] LABS: Calc. Creatinine Clearance 0 mL/min (70-130)
[2021-03-26 02:13] LABS: Bilirubin Negative (Negative); Blood, Urine Moderate (Negative); Glucose, Urine (Dipstick) 100 mg/dL (Negative); Ketone, Urine Negative (Negative); Leukocyte Moderate (Negative); Nitrite Negative (Negative); Protein, Urine (Dipstick) 100 mg/dL (Neg-Trace); Urobilinogen 0.2 mg/dL (Less than 2)
[2021-03-26 02:17] LABS: Clarity Turbid (Clear)
[2021-03-26 02:21] LABS: RBC/HPF 0-3 HPF (0-3); Specific Gravity, Urine 1.013 (1.002-1.036); Squamous Epithelial 0-3 HPF (0-3); WBC/HPF Greater Than 50 HPF (0-3)
[2021-03-26 02:22] LABS: Bacteria/HPF 4+ HPF (None Seen); Transitional Epithelial 0-3 HPF (None Seen)
[2021-03-26 02:32] LABS: Anion Gap 17 mmol/L (10-20); Carbon Dioxide 26 mmol/L (23-31); Chloride 102 mmol/L (98-107); Potassium 3.6 mmol/L (3.5-5.1); Sodium 141 mmol/L (136-145)
[2021-03-26 02:33] LABS: BUN (Urea Nitrogen) 31 mg/dL (9.8-20.1)
[2021-03-26 02:34] LABS: Bilirubin, Total 0.4 mg/dL (0.2-1.2); Glucose 82 mg/dL (83-110)
[2021-03-26 02:35] LABS: Albumin 3.1 g/dL (3.4-4.8); Alkaline Phosphatase 93 U/L (40-110); Globulin 2.9 g/dL (2.4-3.5)
[2021-03-26 02:36] LABS: ALT (SGPT) 10 U/L (8-55); AST (SGOT) 17 U/L (5-34)
[2021-03-26] MEDS ORDERED: cefTRIAXone\\ROCEPHIN 1 GM VIAL ONE (02:47)
[2021-03-26] MEDS ORDERED: Lidocaine 1% (PF) 30 ML VIAL ONE (03:37)
[2021-03-26] MEDS ORDERED: cefTRIAXone\\ROCEPHIN 500 MG VIAL ONE (03:37)
[2021-03-26] MEDS ORDERED: Lidocaine 1% PF 5 ML VIAL ONE (03:38)
== END 2021-03-26 06:51 | disposition home or self-care (01) ==
LOC: ERS 23:47
DX: R51.9 Headache, unspecified (principal); N39.0 Urinary tract infection, site not specified; W19.XXXA Unspecified fall, initial encounter; Z79.899 Other long term (current) drug therapy; I11.0 Hypertensive heart disease with heart failure; I50.9 Heart failure, unspecified; E11.9 Type 2 diabetes mellitus without complications; E78.5 Hyperlipidemia, unspecified
CPT/HCPCS: 36415; 51701; 70450; 71045; 72125; 80053; 81003; 81015; 85025; 93005; 96365; 96372; J0696; J2001

== ENCOUNTER 2021-04-30 18:49 | Emergency (ER) | payer MEDICARE ==
[2021-04-30] MEDS ORDERED: Dextrose 50% Abboject 50 ML SYRINGE ONE (19:02)
[2021-04-30 19:26] LABS: #Eosinphils 0.1 thou/uL (0.0-0.7); #Lymphocytes 1.2 thou/uL (1.20-3.40); #Monocytes 0.5 thou/uL (0.11-0.59); #Neutrophils 5.6 thou/uL (1.40-6.50); %Basophils 0.2 % (0.0-1.0); %Eosinophils 1.7 % (0.0-10.0); %Lymphocytes 15.9 % (21.0-51.0); %Monocytes 6.6 % (0.0-10.0); %Neutrophils 75.5 % (42.0-75.0); Hemoglobin 14.2 g/dL (12.0-16.0); Mean Corpuscular Volume 99.7 fL (78.0-98.0); Mean Platelet Volume 7.9 fL (7.4-10.4); Platelet Count 338 thou/uL (130-400); RBC Distribution Width 14.6 % (11.5-14.5); Red Blood Cell (RBC) Count 4.59 mill/uL (4.20-5.40); White Blood Cell (WBC) Count 7.4 thou/uL (4.8-10.8)
[2021-04-30 20:09] LABS: Glucose 161 mg/dL (83-110)
[2021-04-30 20:17] LABS: ALT (SGPT) 11 U/L (8-55); AST (SGOT) 21 U/L (5-34); Albumin 3.2 g/dL (3.4-4.8); Alkaline Phosphatase 88 U/L (40-110); Anion Gap 15 mmol/L (10-20); BUN (Urea Nitrogen) 25 mg/dL (9.8-20.1); Bilirubin, Total 0.5 mg/dL (0.2-1.2); Calc. Creatinine Clearance 0 mL/min (70-130); Calcium 9.1 mg/dL (7.8-10.44); Carbon Dioxide 25 mmol/L (23-31); Chloride 104 mmol/L (98-107); Glucose 168 mg/dL (83-110); Magnesium 2.1 mg/dL (1.6-2.6); Protein, Total 6.2 g/dL (5.8-8.1); Sodium 140 mmol/L (136-145)
== END 2021-04-30 22:20 | disposition home or self-care (01) ==
LOC: ERS 18:49
DX: E11.65 Type 2 diabetes mellitus with hyperglycemia (principal); M25.561 Pain in right knee; E11.22 Type 2 diabetes mellitus with diabetic chronic kidney disease; I12.0 Hypertensive chronic kidney disease with stage 5 chronic kidney disease or end stage renal disease; N18.6 End stage renal disease; I25.10 Atherosclerotic heart disease of native coronary artery without angina pectoris; Z86.73 Personal history of transient ischemic attack (TIA), and cerebral infarction without residual deficits; Z99.2 Dependence on renal dialysis
CPT/HCPCS: 36415; 36416; 71045; 80053; 83735; 84443; 84484; 85025; 93005; 96374

== ENCOUNTER 2021-05-14 15:12 | Emergency (ER) | payer OTHER, MEDICARE ==
[2021-05-14 15:55] LABS: #Eosinphils 0.2 thou/uL (0.0-0.7); #Lymphocytes 1.1 thou/uL (1.20-3.40); #Monocytes 0.7 thou/uL (0.11-0.59); #Neutrophils 4.3 thou/uL (1.40-6.50); %Basophils 0.5 % (0.0-1.0); %Eosinophils 3.2 % (0.0-10.0); %Lymphocytes 17.6 % (21.0-51.0); %Monocytes 10.8 % (0.0-10.0); %Neutrophils 67.8 % (42.0-75.0); Hemoglobin 12.1 g/dL (12.0-16.0); Mean Corpuscular HGB CONC 31.3 g/dL (32.0-36.0); Mean Corpuscular Hemoglobin 31.2 pg (27.0-31.0); Mean Corpuscular Volume 99.5 fL (78.0-98.0); Mean Platelet Volume 8.1 fL (7.4-10.4); Platelet Count 214 thou/uL (130-400); RBC Distribution Width 14.6 % (11.5-14.5); Red Blood Cell (RBC) Count 3.88 mill/uL (4.20-5.40); White Blood Cell (WBC) Count 6.4 thou/uL (4.8-10.8)
[2021-05-14 16:17] LABS: ALT (SGPT) 9 U/L (8-55); AST (SGOT) 17 U/L (5-34); Albumin 3.2 g/dL (3.4-4.8); Alkaline Phosphatase 102 U/L (40-110); Anion Gap 15 mmol/L (10-20); BUN (Urea Nitrogen) 22 mg/dL (9.8-20.1); Bilirubin, Total 0.7 mg/dL (0.2-1.2); CK (CPK) 89 U/L (29-168); Calc. Creatinine Clearance 0 mL/min (70-130); Calcium 9.3 mg/dL (7.8-10.44); Carbon Dioxide 25 mmol/L (23-31); Chloride 103 mmol/L (98-107); Globulin 3.1 g/dL (2.4-3.5); Glucose 197 mg/dL (83-110); Potassium 3.7 mmol/L (3.5-5.1); Protein, Total 6.3 g/dL (5.8-8.1); Sodium 139 mmol/L (136-145)
[2021-05-14] MEDS ORDERED: Fentanyl 100 MCG/2 ML VIAL ONE (16:47)
[2021-05-14] MEDS ORDERED: Boostrix 0.5 ML (Tdap) VIAL ONE (17:32)
[2021-05-14 17:40] LABS: Bilirubin Negative (Negative); Blood, Urine Moderate (Negative); Glucose, Urine (Dipstick) >=1000 mg/dL (Negative); Ketone, Urine Negative (Negative); Leukocyte Moderate (Negative); Nitrite Negative (Negative); Protein, Urine (Dipstick) > or equal to 300 mg/dL (Neg-Trace); Urobilinogen 0.2 mg/dL (Less than 2)
[2021-05-14 17:46] LABS: Clarity Cloudy (Clear)
[2021-05-14 17:47] LABS: Bacteria/HPF 4+ HPF (None Seen); RBC/HPF 0-3 HPF (0-3); WBC/HPF Greater than 50 HPF (0-3)
== END 2021-05-14 18:05 | disposition home or self-care (01) ==
LOC: ERS 15:12
DX: S06.0X0A Concussion without loss of consciousness, initial encounter (principal); S22.42XA Multiple fractures of ribs, left side, initial encounter for closed fracture; W01.10XA Fall on same level from slipping, tripping and stumbling with subsequent striking against unspecified object, initial encounter; Z79.899 Other long term (current) drug therapy; I25.10 Atherosclerotic heart disease of native coronary artery without angina pectoris; N18.6 End stage renal disease; I12.0 Hypertensive chronic kidney disease with stage 5 chronic kidney disease or end stage renal disease; E11.22 Type 2 diabetes mellitus with diabetic chronic kidney disease
CPT/HCPCS: 12001; 36415; 36416; 70450; 71045; 80053; 81003; 81015; 82550; 85025; 90471; 90715; 93005; 96374; J3010

== ENCOUNTER 2021-06-22 00:55 | Inpatient (IN) | payer MEDICARE ==
[2021-06-22 01:49] LABS: Bilirubin Negative (Negative); Blood, Urine Trace (Negative); Clarity Turbid (Clear); Glucose, Urine (Dipstick) Normal (Negative); Ketone, Urine Negative (Negative); Leukocyte 500 Leu/uL (Negative); Nitrite Negative (Negative); Protein, Urine (Dipstick) 300 mg/dL (Neg-Trace); Specific Gravity, Urine 1.009 (1.002-1.036); Squamous Epithelial None Seen HPF (0-3); WBC/HPF Greater than 50 HPF (0-3)
[2021-06-22 01:52] LABS: #Basophils 0.1 thou/uL (0.0-0.2); #Eosinphils 0.1 thou/uL (0.0-0.7); #Lymphocytes 0.8 thou/uL (1.20-3.40); #Monocytes 0.4 thou/uL (0.11-0.59); #Neutrophils 6.2 thou/uL (1.40-6.50); %Basophils 0.8 % (0.0-1.0); %Eosinophils 1.5 % (0.0-10.0); %Lymphocytes 10.9 % (21.0-51.0); %Monocytes 5.6 % (0.0-10.0); %Neutrophils 81.2 % (42.0-75.0); Mean Corpuscular HGB CONC 33.1 g/dL (32.0-36.0); Mean Corpuscular Hemoglobin 33.9 pg (27.0-31.0); Mean Platelet Volume 7.3 fL (7.4-10.4); Platelet Count 282 thou/uL (130-400); RBC Distribution Width 13.3 % (11.5-14.5); Red Blood Cell (RBC) Count 3.85 mill/uL (4.20-5.40); White Blood Cell (WBC) Count 7.7 thou/uL (4.8-10.8)
[2021-06-22 02:02] LABS: Bacteria/HPF 4+ HPF (None Seen)
[2021-06-22 02:06] LABS: Triple Phosphate Crystal Rare HPF (None Seen)
[2021-06-22 02:49] LABS: ALT (SGPT) 18 U/L (8-55); AST (SGOT) 40 U/L (5-34); Albumin 3.2 g/dL (3.4-4.8); Alkaline Phosphatase 79 U/L (40-110); Anion Gap 14 mmol/L (10-20); BUN (Urea Nitrogen) 31 mg/dL (9.8-20.1); Bilirubin, Total 0.4 mg/dL (0.2-1.2); Calc. Creatinine Clearance 0 mL/min (70-130); Calcium 9.7 mg/dL (7.8-10.44); Carbon Dioxide 28 mmol/L (23-31); Chloride 103 mmol/L (98-107); Globulin 4.1 g/dL (2.4-3.5); Glucose 114 mg/dL (83-110); Potassium 4.6 mmol/L (3.5-5.1); Protein, Total 7.3 g/dL (5.8-8.1); Sodium 140 mmol/L (136-145)
[2021-06-22] MEDS ORDERED: Acetaminophen 325 MG TAB PO PRN (02:50)
[2021-06-22] MEDS ORDERED: Ondansetron PF 4 MG/2 ML Vial IVP PRN (02:50)
[2021-06-22] MEDS ORDERED: Dextrose 50% Abboject 50 ML SYRINGE SLOW IVP PRN (02:51)
[2021-06-22] MEDS ORDERED: Dextrose 5% in Water 1,000 ML IV PRN (02:51)
[2021-06-22] MEDS ORDERED: cefTRIAXone\\ROCEPHIN 1 GM VIAL ONE (03:03)
[2021-06-22] MEDS ORDERED: Vancomycin 1 GM/200 ML BAG ONE (03:20)
[2021-06-22 06:30] VITALS: BMI 27.0
[2021-06-22 07:26] LABS: SARS-CoV-2 NAA Rapid Test Not Detected (NotDetected)
[2021-06-22] MEDS: Heparin 5,000 UNITS/ML VIAL SC SCH ×3 (08:00→20:33)
[2021-06-22 10:21] LABS: #Eosinphils 0.1 thou/uL (0.0-0.7); #Lymphocytes 1.3 thou/uL (1.20-3.40); #Monocytes 0.8 thou/uL (0.11-0.59); %Basophils 0.7 % (0.0-1.0); %Eosinophils 1.4 % (0.0-10.0); %Lymphocytes 17.8 % (21.0-51.0); %Monocytes 10.7 % (0.0-10.0); %Neutrophils 69.4 % (42.0-75.0); Hemoglobin 10.5 g/dL (12.0-16.0); Mean Corpuscular HGB CONC 31.4 g/dL (32.0-36.0); Mean Corpuscular Hemoglobin 32.4 pg (27.0-31.0); Mean Platelet Volume 7.3 fL (7.4-10.4); Platelet Count 325 thou/uL (130-400); RBC Distribution Width 13.2 % (11.5-14.5); Red Blood Cell (RBC) Count 3.25 mill/uL (4.20-5.40); White Blood Cell (WBC) Count 7.1 thou/uL (4.8-10.8)
[2021-06-22 10:41] LABS: Potassium 4.3 mmol/L (3.5-5.1); Sodium 139 mmol/L (136-145)
[2021-06-22 10:42] LABS: Anion Gap 13 mmol/L (10-20); BUN (Urea Nitrogen) 37 mg/dL (9.8-20.1); Calc. Creatinine Clearance 14 mL/min (70-130); Calcium 8.9 mg/dL (7.8-10.44); Carbon Dioxide 26 mmol/L (23-31); Chloride 104 mmol/L (98-107)
[2021-06-22 10:51] LABS: Glucose 55 mg/dL (83-110)
[2021-06-22] MEDS ORDERED: Ergocalciferol 1.25 MG(50,000 UNITS) CAP PO SCH (15:00)
[2021-06-22] MEDS: Lisinopril 10 MG TAB PO SCH (20:33)
[2021-06-22] MEDS: hydrALAZINE 25 MG TAB PO SCH (20:33)
[2021-06-22] MEDS: Carvedilol 25 MG TAB PO SCH (20:33)
[2021-06-23 03:59] LABS: #Basophils 0.1 thou/uL (0.0-0.2); #Eosinphils 0.2 thou/uL (0.0-0.7); #Lymphocytes 1.6 thou/uL (1.20-3.40); #Monocytes 0.8 thou/uL (0.11-0.59); #Neutrophils 3.1 thou/uL (1.40-6.50); %Basophils 1.7 % (0.0-1.0); %Eosinophils 3.5 % (0.0-10.0); %Lymphocytes 27.6 % (21.0-51.0); %Neutrophils 53.1 % (42.0-75.0); Hemoglobin 11.6 g/dL (12.0-16.0); Mean Corpuscular HGB CONC 32.9 g/dL (32.0-36.0); Mean Corpuscular Hemoglobin 33.6 pg (27.0-31.0); Mean Platelet Volume 7.5 fL (7.4-10.4); Platelet Count 313 thou/uL (130-400); RBC Distribution Width 13.6 % (11.5-14.5); Red Blood Cell (RBC) Count 3.44 mill/uL (4.20-5.40); White Blood Cell (WBC) Count 5.9 thou/uL (4.8-10.8)
[2021-06-23 04:18] LABS: Anion Gap 16 mmol/L (10-20); BUN (Urea Nitrogen) 40 mg/dL (9.8-20.1); Calc. Creatinine Clearance 13 mL/min (70-130); Carbon Dioxide 24 mmol/L (23-31); Chloride 102 mmol/L (98-107); Potassium 3.6 mmol/L (3.5-5.1); Sodium 138 mmol/L (136-145)
[2021-06-23] MEDS: cefTRIAXone\\ROCEPHIN 1 GM in Sodium Chloride 0.9% 100 ML IVPB SCH (04:20)
[2021-06-23 04:21] LABS: Glucose 45 mg/dL (83-110)
[2021-06-23] MEDS: Heparin 5,000 UNITS/ML VIAL SC SCH ×3 (08:54→20:50)
[2021-06-23] MEDS: Carvedilol 25 MG TAB PO SCH ×2 (08:54→20:49)
[2021-06-23] MEDS: Lisinopril 10 MG TAB PO SCH ×2 (08:54→20:49)
[2021-06-23] MEDS: Aspirin Chewable 81 MG TAB PO SCH (08:54)
[2021-06-23] MEDS: hydrALAZINE 25 MG TAB PO SCH ×2 (08:54→20:56)
[2021-06-23 12:30] LABS: Vitamin D, 25 Hydroxy 49.2 ng/ml (> 30.0)
[2021-06-23] MEDS ORDERED: hydrALAZINE 20 MG/ML VIAL SLOW IVP PRN (13:26)
[2021-06-23] MEDS ORDERED: Dextrose 50% Abboject 50 ML SYRINGE SLOW IVP PRN (13:36)
[2021-06-23] MEDS ORDERED: Dextrose 5% in Water 1,000 ML IV PRN (13:36)
[2021-06-23] MEDS: HumaLOG 300 UNITS/3 ML VIAL SC PRN (22:18)
[2021-06-24] MEDS: cefTRIAXone\\ROCEPHIN 1 GM in Sodium Chloride 0.9% 100 ML IVPB SCH (03:56)
[2021-06-24 06:51] LABS: Anion Gap 16 mmol/L (10-20); BUN (Urea Nitrogen) 47 mg/dL (9.8-20.1); Calc. Creatinine Clearance 10 mL/min (70-130); Calcium 8.4 mg/dL (7.8-10.44); Carbon Dioxide 19 mmol/L (23-31); Chloride 106 mmol/L (98-107); Glucose 147 mg/dL (83-110); Sodium 136 mmol/L (136-145)
[2021-06-24 07:19] LABS: #Eosinphils 0.2 thou/uL (0.0-0.7); #Lymphocytes 1.4 thou/uL (1.20-3.40); #Monocytes 0.9 thou/uL (0.11-0.59); #Neutrophils 3.9 thou/uL (1.40-6.50); %Basophils 0.5 % (0.0-1.0); %Eosinophils 3.8 % (0.0-10.0); %Monocytes 14.5 % (0.0-10.0); %Neutrophils 60.2 % (42.0-75.0); Hemoglobin 10.7 g/dL (12.0-16.0); Mean Corpuscular HGB CONC 32.5 g/dL (32.0-36.0); Mean Platelet Volume 7.5 fL (7.4-10.4); Platelet Count 303 thou/uL (130-400); RBC Distribution Width 13.7 % (11.5-14.5); Red Blood Cell (RBC) Count 3.23 mill/uL (4.20-5.40); White Blood Cell (WBC) Count 6.5 thou/uL (4.8-10.8)
[2021-06-24] MEDS: Aspirin Chewable 81 MG TAB PO SCH (08:52)
[2021-06-24] MEDS: Lisinopril 10 MG TAB PO SCH ×2 (08:52→20:03)
[2021-06-24] MEDS: Heparin 5,000 UNITS/ML VIAL SC SCH ×3 (08:52→20:03)
[2021-06-24] MEDS: hydrALAZINE 25 MG TAB PO SCH ×2 (08:52→20:03)
[2021-06-24] MEDS: Carvedilol 25 MG TAB PO SCH ×2 (08:52→20:02)
[2021-06-24] MEDS: HumaLOG 300 UNITS/3 ML VIAL SC PRN ×2 (11:28→21:33)
[2021-06-24] MEDS ORDERED: Meropenem 1 GM in Sodium Chloride 0.9% 100 ML IVPB SCH (16:27)
[2021-06-25] MEDS ORDERED: Meropenem 1 GM in Sodium Chloride 0.9% 100 ML IVPB SCH (04:30)
[2021-06-25] MEDS: HumaLOG 300 UNITS/3 ML VIAL SC PRN ×2 (05:53→11:34)
[2021-06-25 08:29] LABS: Hemoglobin 11.1 g/dL (12.0-16.0); Mean Corpuscular HGB CONC 31.7 g/dL (32.0-36.0); Mean Corpuscular Hemoglobin 32.4 pg (27.0-31.0); Mean Platelet Volume 7.6 fL (7.4-10.4); Platelet Count 291 thou/uL (130-400); RBC Distribution Width 14.3 % (11.5-14.5); Red Blood Cell (RBC) Count 3.41 mill/uL (4.20-5.40); White Blood Cell (WBC) Count 6.9 thou/uL (4.8-10.8)
[2021-06-25] MEDS: Aspirin Chewable 81 MG TAB PO SCH (08:53)
[2021-06-25] MEDS: hydrALAZINE 25 MG TAB PO SCH ×2 (08:53→20:58)
[2021-06-25] MEDS: Carvedilol 25 MG TAB PO SCH ×2 (08:54→20:58)
[2021-06-25] MEDS: Lisinopril 10 MG TAB PO SCH ×2 (08:54→20:58)
[2021-06-25] MEDS: Heparin 5,000 UNITS/ML VIAL SC SCH ×3 (08:54→20:58)
[2021-06-25] MEDS ORDERED: FLU VACC QS2021-22(65YR UP)/PF 240 MCG/0.7 ML SYRINGE IM ONE (09:00)
[2021-06-25 09:12] LABS: Anion Gap 13 mmol/L (10-20); Calcium 8.9 mg/dL (7.8-10.44); Carbon Dioxide 29 mmol/L (23-31); Chloride 100 mmol/L (98-107); Glucose 164 mg/dL (83-110); Potassium 3.5 mmol/L (3.5-5.1); Sodium 138 mmol/L (136-145)
[2021-06-25 09:13] LABS: Phosphorus 2.9 mg/dL (2.3-4.7)
[2021-06-25 09:26] LABS: BUN (Urea Nitrogen) 27 mg/dL (9.8-20.1); Calc. Creatinine Clearance 13 mL/min (70-130); Magnesium 2.1 mg/dL (1.6-2.6)
[2021-06-25 10:55] LABS: MDiff Complete? YES
[2021-06-25 10:56] LABS: Band 4 % (5-11); Eosinophils 1 % (0-10); Lymphocytes 21 % (21-51); Monocytes 17 % (0-10); Myelocyte 1 % (0-0); Neutrophil 53 % (42-75); Nucleated RBC 1 % (0); Platelet Morphology Comment Appears Adequate; RBC Morphology Normal; Reactive Lymphocytes 2 % (0-10)
[2021-06-25] MEDS ORDERED: Dextrose 50% Abboject 50 ML SYRINGE SLOW IVP PRN (13:26)
[2021-06-25] MEDS ORDERED: HumaLOG 300 UNITS/3 ML VIAL SC PRN (13:26)
[2021-06-25] MEDS ORDERED: Dextrose 5% in Water 1,000 ML IV PRN (13:26)
[2021-06-25] MEDS ORDERED: Meropenem 500 MG in Sodium Chloride 0.9% 100 ML IVPB SCH (17:00)
[2021-06-26 07:55] LABS: Hemoglobin 11.1 g/dL (12.0-16.0); Mean Corpuscular Hemoglobin 33.5 pg (27.0-31.0); Mean Platelet Volume 7.6 fL (7.4-10.4); Platelet Count 276 thou/uL (130-400); Red Blood Cell (RBC) Count 3.31 mill/uL (4.20-5.40); White Blood Cell (WBC) Count 5.5 thou/uL (4.8-10.8)
[2021-06-26 08:16] LABS: Anion Gap 14 mmol/L (10-20); BUN (Urea Nitrogen) 37 mg/dL (9.8-20.1); Calc. Creatinine Clearance 10 mL/min (70-130); Carbon Dioxide 27 mmol/L (23-31); Chloride 100 mmol/L (98-107); Glucose 246 mg/dL (83-110); Magnesium 2.2 mg/dL (1.6-2.6); Phosphorus 4.6 mg/dL (2.3-4.7); Potassium 3.8 mmol/L (3.5-5.1); Sodium 137 mmol/L (136-145)
[2021-06-26] MEDS ORDERED: Lantus 1000 UNITS/10 ML VIAL SC SCH (09:00)
[2021-06-26 09:24] LABS: Band 3 % (5-11); Eosinophils 1 % (0-10); Lymphocytes 22 % (21-51); MDiff Complete? YES; Metamyelocyte 1 % (0-0); Monocytes 23 % (0-10); Neutrophil 48 % (42-75); Platelet Morphology Comment Appears Adequate; Polychromasia SLIGHT = 2-3 cells (100X) (0-2/hpf); Reactive Lymphocytes 1 % (0-10)
[2021-06-26] MEDS: Lisinopril 10 MG TAB PO SCH (11:08)
[2021-06-26] MEDS: Aspirin Chewable 81 MG TAB PO SCH (11:08)
[2021-06-26] MEDS: Heparin 5,000 UNITS/ML VIAL SC SCH (11:08)
[2021-06-26] MEDS: hydrALAZINE 25 MG TAB PO SCH (11:08)
[2021-06-26] MEDS: Carvedilol 25 MG TAB PO SCH (11:08)
[2021-06-26 13:24] VITALS: BP 117/53; TEMP 98
== END 2021-06-26 15:48 | DRG 637 ==
LOC: ERS 00:55 → IMCU/EMU 03:09 → T4-A 06-23 15:59
PROVIDERS: ADMIT Internal Medicine; ATTEND Family Medicine
PROC: 5A1D70Z Performance of Urinary Filtration, Intermittent, Less than 6 Hours Per Day (ICD-10-PCS; principal; 2021-06-24)
DX: E11.649 Type 2 diabetes mellitus with hypoglycemia without coma (principal); G93.41 Metabolic encephalopathy; I13.2 Hypertensive heart and chronic kidney disease with heart failure and with stage 5 chronic kidney disease, or end stage renal disease; I50.32 Chronic diastolic (congestive) heart failure; N18.6 End stage renal disease; I25.10 Atherosclerotic heart disease of native coronary artery without angina pectoris; D64.9 Anemia, unspecified; E11.22 Type 2 diabetes mellitus with diabetic chronic kidney disease; D63.1 Anemia in chronic kidney disease; E88.09 Other disorders of plasma-protein metabolism, not elsewhere classified; Z79.4 Long term (current) use of insulin; Z79.82 Long term (current) use of aspirin; Z79.899 Other long term (current) drug therapy; Z99.2 Dependence on renal dialysis; Z86.73 Personal history of transient ischemic attack (TIA), and cerebral infarction without residual deficits; Z90.49 Acquired absence of other specified parts of digestive tract; Z90.710 Acquired absence of both cervix and uterus; Z20.822 Contact with and (suspected) exposure to COVID-19
CPT/HCPCS: 0240U; 36415; 36416; 70450; 71045; 74176; 76770; 80048; 80053; 81003; 81015; 82306; 82607; 82746; 83036; 83605; 83735; 83880; 84100; 84443; 85025; 87040; 87077; 87086; 87186; 90935; 93005; 93010; G0257; J0360; J0696; J1644; J1815; J2185; J2405; J3370; J3490; J7070

== ENCOUNTER 2021-07-23 10:33 | Inpatient (IN) | payer MEDICARE, OTHER ==
[2021-07-23] MEDS ORDERED: Fentanyl 100 MCG/2 ML VIAL ONE (10:52)
[2021-07-23] MEDS ORDERED: Norepinephrine 8 MG/0.9% NS 250 ML ONE (11:00)
[2021-07-23] MEDS ORDERED: Iopamidol-370 76% 500 ML 1 ML ONE (11:03)
[2021-07-23 11:40] LABS: %Lymphocytes 17.4 % (21.0-51.0); %Monocytes 5.2 % (0.0-10.0); %Neutrophils 74.6 % (42.0-75.0); Hemoglobin 11.7 g/dL (12.0-16.0); Mean Corpuscular HGB CONC 32.7 g/dL (32.0-36.0); Mean Corpuscular Hemoglobin 33.4 pg (27.0-31.0); Mean Platelet Volume 7.6 fL (7.4-10.4); Platelet Count 234 thou/uL (130-400); Red Blood Cell (RBC) Count 3.52 mill/uL (4.20-5.40); White Blood Cell (WBC) Count 6.2 thou/uL (4.8-10.8)
[2021-07-23 11:41] LABS: #Eosinphils 0.1 thou/uL (0.0-0.7); #Lymphocytes 1.1 thou/uL (1.20-3.40); #Monocytes 0.3 thou/uL (0.11-0.59); #Neutrophils 4.7 thou/uL (1.40-6.50); %Basophils 0.5 % (0.0-1.0); %Eosinophils 2.2 % (0.0-10.0)
[2021-07-23 12:02] LABS: ALT (SGPT) 10 U/L (8-55); AST (SGOT) 15 U/L (5-34); Alkaline Phosphatase 74 U/L (40-110); Anion Gap 15 mmol/L (10-20); BUN (Urea Nitrogen) 43 mg/dL (9.8-20.1); Bilirubin, Total 0.5 mg/dL (0.2-1.2); Calc. Creatinine Clearance 0 mL/min (70-130); Calcium 9.2 mg/dL (7.8-10.44); Carbon Dioxide 26 mmol/L (23-31); Chloride 106 mmol/L (98-107); Globulin 2.7 g/dL (2.4-3.5); Glucose 98 mg/dL (83-110); Lipase 22 U/L (8-78); Potassium 3.9 mmol/L (3.5-5.1); Protein, Total 5.7 g/dL (5.8-8.1); Sodium 143 mmol/L (136-145)
[2021-07-23] MEDS ORDERED: Ondansetron PF 4 MG/2 ML Vial ONE (12:06)
[2021-07-23] MEDS ORDERED: Morphine 4 MG/ML VIAL ONE (12:06)
[2021-07-23 12:34] LABS: Bacteria/HPF None Seen HPF (None Seen); Bilirubin Negative (Negative); Blood, Urine Negative (Negative); Clarity Clear (Clear); Glucose, Urine (Dipstick) >=1000 mg/dL (Negative); Ketone, Urine Negative (Negative); Leukocyte Negative Leu/uL (Negative); Nitrite Negative (Negative); Protein, Urine (Dipstick) 100 mg/dL (Neg-Trace); RBC/HPF 0-3 HPF (0-3); Squamous Epithelial None Seen HPF (0-3); Urobilinogen Normal mg/dL (Less than 2); WBC/HPF 0-3 HPF (0-3); pH, Urine 7.5 (5.0-9.0)
[2021-07-23 13:49] LABS: SARS-CoV-2 NAA Rapid Test Not Detected (NotDetected)
[2021-07-23] MEDS ORDERED: Insulin Regular 300 UNITS/3 ML VIAL SC PRN (13:59)
[2021-07-23] MEDS ORDERED: Ondansetron PF 4 MG/2 ML Vial IVP PRN (13:59)
[2021-07-23] MEDS ORDERED: Dextrose 5% in Water 1,000 ML IV PRN (13:59)
[2021-07-23] MEDS ORDERED: Dextrose 50% Abboject 50 ML SYRINGE SLOW IVP PRN (13:59)
[2021-07-23] MEDS ORDERED: Cyclobenzaprine 10 MG TAB PO PRN (14:06)
[2021-07-23] MEDS ORDERED: Sodium Chloride 0.9% 1,000 ML IV SCH ×2 (14:15)
[2021-07-23 15:22] LABS: Phosphorus 4.3 mg/dL (2.3-4.7)
[2021-07-23 15:23] LABS: Magnesium 2.2 mg/dL (1.6-2.6)
[2021-07-23] MEDS ORDERED: Acetaminophen 325 MG TAB ONE (16:13)
[2021-07-23] MEDS: Acetaminophen 325 MG TAB PO SCH ×2 (16:15→21:01)
[2021-07-23] MEDS ORDERED: Norepinephrine 8 MG/0.9% NS 250 ML IVPB SCH (17:00)
[2021-07-23] MEDS: Famotidine/PF 20 mg/2ml Vial SLOW IVP SCH (21:01)
[2021-07-23] MEDS: Morphine 4 MG/ML VIAL SLOW IVP PRN (23:15)
[2021-07-24] MEDS: traMADol HCl 50 MG TAB PO PRN (02:11)
[2021-07-24] MEDS: Acetaminophen 325 MG TAB PO SCH ×4 (02:11→21:42)
[2021-07-24 04:48] LABS: #Eosinphils 0.1 thou/uL (0.0-0.7); #Monocytes 1.1 thou/uL (0.11-0.59); #Neutrophils 7.2 thou/uL (1.40-6.50); %Basophils 0.4 % (0.0-1.0); %Eosinophils 0.8 % (0.0-10.0); %Lymphocytes 10.4 % (21.0-51.0); %Monocytes 11.8 % (0.0-10.0); %Neutrophils 76.6 % (42.0-75.0); Mean Corpuscular HGB CONC 33.1 g/dL (32.0-36.0); Mean Platelet Volume 7.7 fL (7.4-10.4); Platelet Count 207 thou/uL (130-400); RBC Distribution Width 14.2 % (11.5-14.5); Red Blood Cell (RBC) Count 2.94 mill/uL (4.20-5.40); White Blood Cell (WBC) Count 9.4 thou/uL (4.8-10.8)
[2021-07-24 05:09] LABS: Anion Gap 18 mmol/L (10-20); BUN (Urea Nitrogen) 49 mg/dL (9.8-20.1); Calc. Creatinine Clearance 10 mL/min (70-130); Calcium 8.3 mg/dL (7.8-10.44); Carbon Dioxide 18 mmol/L (23-31); Chloride 107 mmol/L (98-107); Glucose 227 mg/dL (83-110); Magnesium 2.2 mg/dL (1.6-2.6); Phosphorus 5.9 mg/dL (2.3-4.7); Potassium 4.6 mmol/L (3.5-5.1); Sodium 138 mmol/L (136-145)
[2021-07-24] MEDS: Insulin Regular 300 UNITS/3 ML VIAL SC PRN (06:31)
[2021-07-24] MEDS ORDERED: FLU VACC QS2021-22(65YR UP)/PF 240 MCG/0.7 ML SYRINGE IM ONE (09:00)
[2021-07-24] MEDS: Morphine 4 MG/ML VIAL SLOW IVP PRN (09:57)
[2021-07-24] MEDS: Dextrose 5 % And 0.9 % NaCl 1,000 ML IV SCH (11:08)
[2021-07-24] MEDS ORDERED: ceFAZolin Sodium/D5W 2 GM in Premix Bag 1 BAG IVPB SCH (12:30)
[2021-07-24 15:41] LABS: PTT 38.6 sec (22.9-36.1); Prothrombin Time 13.7 sec (12.0-14.7)
[2021-07-24] MEDS: Famotidine/PF 20 mg/2ml Vial SLOW IVP SCH (21:41)
[2021-07-25] MEDS: Acetaminophen 325 MG TAB PO SCH ×4 (04:43→21:09)
[2021-07-25] MEDS: Insulin Regular 300 UNITS/3 ML VIAL SC PRN ×3 (05:31→16:27)
[2021-07-25] MEDS ORDERED: Fentanyl 100 MCG/2 ML VIAL ONE ×2 (07:12→09:04)
[2021-07-25] MEDS ORDERED: Dexamethasone 20 MG/5 ML VIAL ONE (07:39)
[2021-07-25] MEDS ORDERED: Ondansetron PF 4 MG/2 ML Vial ONE (07:39)
[2021-07-25 10:02] LABS: #Eosinphils 0.1 thou/uL (0.0-0.7); #Lymphocytes 0.8 thou/uL (1.20-3.40); #Monocytes 0.8 thou/uL (0.11-0.59); #Neutrophils 10.2 thou/uL (1.40-6.50); %Basophils 0.2 % (0.0-1.0); %Eosinophils 0.6 % (0.0-10.0); %Lymphocytes 6.8 % (21.0-51.0); %Monocytes 6.4 % (0.0-10.0); Hemoglobin 9.7 g/dL (12.0-16.0); Mean Corpuscular HGB CONC 31.2 g/dL (32.0-36.0); Mean Corpuscular Hemoglobin 32.4 pg (27.0-31.0); Mean Platelet Volume 7.4 fL (7.4-10.4); Platelet Count 212 thou/uL (130-400); RBC Distribution Width 14.6 % (11.5-14.5); Red Blood Cell (RBC) Count 2.99 mill/uL (4.20-5.40); White Blood Cell (WBC) Count 11.8 thou/uL (4.8-10.8)
[2021-07-25 10:22] LABS: Anion Gap 15 mmol/L (10-20); BUN (Urea Nitrogen) 22 mg/dL (9.8-20.1); Calc. Creatinine Clearance 13 mL/min (70-130); Calcium 8.5 mg/dL (7.8-10.44); Carbon Dioxide 24 mmol/L (23-31); Chloride 102 mmol/L (98-107); Glucose 189 mg/dL (83-110); Magnesium 1.8 mg/dL (1.6-2.6); Sodium 137 mmol/L (136-145)
[2021-07-25] MEDS: Dextrose 5 % And 0.9 % NaCl 1,000 ML IV SCH (11:42)
[2021-07-25] MEDS ORDERED: Magnesium 2 GM/50 ML 2 GM in Premix Bag 1 BAG IVPB SCH (12:00)
[2021-07-25] MEDS ORDERED: hydrALAZINE 20 MG/ML VIAL SLOW IVP PRN (14:22)
[2021-07-25] MEDS: ceFAZolin Sodium/D5W 2 GM in Premix Bag 1 BAG IVPB SCH ×2 (15:18→21:12)
[2021-07-25] MEDS: Famotidine/PF 20 mg/2ml Vial SLOW IVP SCH (21:09)
[2021-07-26] MEDS: Dextrose 5 % And 0.9 % NaCl 1,000 ML IV SCH ×2 (03:33→16:41)
[2021-07-26] MEDS: Acetaminophen 325 MG TAB PO SCH ×4 (03:47→20:06)
[2021-07-26 06:35] LABS: #Lymphocytes 0.9 thou/uL (1.20-3.40); #Monocytes 1.2 thou/uL (0.11-0.59); #Neutrophils 8.4 thou/uL (1.40-6.50); %Basophils 0.1 % (0.0-1.0); %Eosinophils 0.3 % (0.0-10.0); %Lymphocytes 8.6 % (21.0-51.0); %Monocytes 11.1 % (0.0-10.0); %Neutrophils 79.9 % (42.0-75.0); Hemoglobin 8.4 g/dL (12.0-16.0); Mean Corpuscular HGB CONC 32.3 g/dL (32.0-36.0); Mean Corpuscular Hemoglobin 33.6 pg (27.0-31.0); Mean Platelet Volume 7.6 fL (7.4-10.4); Platelet Count 189 thou/uL (130-400); RBC Distribution Width 14.2 % (11.5-14.5); Red Blood Cell (RBC) Count 2.51 mill/uL (4.20-5.40); White Blood Cell (WBC) Count 10.5 thou/uL (4.8-10.8)
[2021-07-26 06:52] LABS: Phosphorus 4.3 mg/dL (2.3-4.7)
[2021-07-26 06:55] LABS: Anion Gap 17 mmol/L (10-20); BUN (Urea Nitrogen) 30 mg/dL (9.8-20.1); Calc. Creatinine Clearance 10 mL/min (70-130); Calcium 8.2 mg/dL (7.8-10.44); Carbon Dioxide 22 mmol/L (23-31); Chloride 103 mmol/L (98-107); Glucose 227 mg/dL (83-110); Magnesium 2.4 mg/dL (1.6-2.6); Potassium 3.6 mmol/L (3.5-5.1); Sodium 138 mmol/L (136-145)
[2021-07-26] MEDS: Insulin Regular 300 UNITS/3 ML VIAL SC PRN ×2 (07:25→16:42)
[2021-07-26] MEDS: Ferrous Sulfate 325 MG TAB PO SCH ×2 (09:26→16:44)
[2021-07-26] MEDS: Ascorbic Acid 500 mg Chewable Tablet PO SCH ×2 (09:26→20:07)
[2021-07-26] MEDS ORDERED: Lisinopril 10 MG TAB PO SCH (09:30)
[2021-07-26] MEDS ORDERED: hydrALAZINE 25 MG TAB PO SCH (09:45)
[2021-07-26] MEDS: hydrALAZINE 25 MG TAB PO SCH (20:07)
[2021-07-26] MEDS: Lisinopril 10 MG TAB PO SCH (20:07)
[2021-07-26] MEDS ORDERED: Famotidine 20 MG TAB PO SCH (21:00)
[2021-07-27] MEDS: Acetaminophen 325 MG TAB PO SCH ×3 (03:16→15:48)
[2021-07-27 07:09] VITALS: BMI 28.0
[2021-07-27 07:24] LABS: #Eosinphils 0.1 thou/uL (0.0-0.7); #Monocytes 1.2 thou/uL (0.11-0.59); #Neutrophils 7.2 thou/uL (1.40-6.50); %Basophils 0.3 % (0.0-1.0); %Eosinophils 1.4 % (0.0-10.0); %Lymphocytes 10.4 % (21.0-51.0); %Monocytes 12.8 % (0.0-10.0); %Neutrophils 75.1 % (42.0-75.0); Hemoglobin 8.8 g/dL (12.0-16.0); Mean Corpuscular HGB CONC 32.1 g/dL (32.0-36.0); Mean Corpuscular Hemoglobin 32.5 pg (27.0-31.0); Mean Platelet Volume 7.8 fL (7.4-10.4); Platelet Count 218 thou/uL (130-400); Red Blood Cell (RBC) Count 2.72 mill/uL (4.20-5.40); White Blood Cell (WBC) Count 9.5 thou/uL (4.8-10.8)
[2021-07-27 07:39] LABS: Phosphorus 2.6 mg/dL (2.3-4.7)
[2021-07-27 07:40] LABS: Anion Gap 13 mmol/L (10-20); BUN (Urea Nitrogen) 23 mg/dL (9.8-20.1); Calc. Creatinine Clearance 15 mL/min (70-130); Calcium 8.8 mg/dL (7.8-10.44); Carbon Dioxide 29 mmol/L (23-31); Chloride 101 mmol/L (98-107); Glucose 218 mg/dL (83-110); Magnesium 2.1 mg/dL (1.6-2.6); Potassium 3.7 mmol/L (3.5-5.1); Sodium 139 mmol/L (136-145)
[2021-07-27] MEDS: Lisinopril 10 MG TAB PO SCH (09:00)
[2021-07-27] MEDS: Ferrous Sulfate 325 MG TAB PO SCH ×2 (09:00→15:52)
[2021-07-27] MEDS: hydrALAZINE 25 MG TAB PO SCH (09:00)
[2021-07-27] MEDS ORDERED: Carvedilol 25 MG TAB PO SCH ×2 (09:00)
[2021-07-27] MEDS: Ascorbic Acid 500 mg Chewable Tablet PO SCH (09:01)
[2021-07-27] MEDS: Heparin 5,000 UNITS/ML VIAL SC SCH ×2 (09:02→15:48)
[2021-07-27] MEDS: Insulin Regular 300 UNITS/3 ML VIAL SC PRN (13:06)
[2021-07-27] MEDS: traMADol HCl 50 MG TAB PO PRN (13:43)
[2021-07-27 15:43] VITALS: BP 193/63; TEMP 97.5
[2021-07-27] MEDS ORDERED: Aspirin 81 mg Enteric Coated Tablet PO SCH ×2 (21:00)
== END 2021-07-27 21:16 | DRG 480 ==
LOC: ERS 10:33 → ERHOLD 13:59 → CCU 17:17 → SURG A 07-26 00:26
PROVIDERS: ADMIT Surgery; ATTEND Surgery
PROC: 5A1D70Z Performance of Urinary Filtration, Intermittent, Less than 6 Hours Per Day (ICD-10-PCS; 2021-07-24)
PROC: 3E033XZ Introduction of Vasopressor into Peripheral Vein, Percutaneous Approach (ICD-10-PCS; 2021-07-24)
PROC: 0QHC36Z Insertion of Intramedullary Internal Fixation Device into Left Lower Femur, Percutaneous Approach (ICD-10-PCS; principal; 2021-07-25)
DX: S72.492A Other fracture of lower end of left femur, initial encounter for closed fracture (principal); Z20.822 Contact with and (suspected) exposure to COVID-19; N18.6 End stage renal disease; I50.32 Chronic diastolic (congestive) heart failure; I13.2 Hypertensive heart and chronic kidney disease with heart failure and with stage 5 chronic kidney disease, or end stage renal disease; D63.1 Anemia in chronic kidney disease; I25.10 Atherosclerotic heart disease of native coronary artery without angina pectoris; E11.22 Type 2 diabetes mellitus with diabetic chronic kidney disease; W18.30XA Fall on same level, unspecified, initial encounter; E86.1 Hypovolemia; I95.9 Hypotension, unspecified; E11.51 Type 2 diabetes mellitus with diabetic peripheral angiopathy without gangrene; F03.90 Unspecified dementia, unspecified severity, without behavioral disturbance, psychotic disturbance, mood disturbance, and anxiety; I25.5 Ischemic cardiomyopathy; Z99.2 Dependence on renal dialysis; Z78.1 Physical restraint status; Z86.73 Personal history of transient ischemic attack (TIA), and cerebral infarction without residual deficits; Z90.49 Acquired absence of other specified parts of digestive tract; Z90.710 Acquired absence of both cervix and uterus; Z79.899 Other long term (current) drug therapy; Z79.82 Long term (current) use of aspirin; Z79.02 Long term (current) use of antithrombotics/antiplatelets; Z98.890 Other specified postprocedural states
CPT/HCPCS: 36415; 36416; 70450; 71045; 71260; 72125; 74177; 80053; 81003; 81015; 82274; 82533; 83690; 83735; 83880; 84100; 84484; 85025; 86850; 86900; 86901; 87040; 87086; 87324; 87449; 93005; 94760; G0390; J2270; J2405; J3010; J7050; S0028; U0002

== ENCOUNTER 2021-08-04 11:28 | Inpatient (IN) | payer MEDICARE, OTHER ==
[2021-08-04 12:42] LABS: #Eosinphils 0.2 thou/uL (0.0-0.7); #Lymphocytes 1.2 thou/uL (1.20-3.40); #Monocytes 0.7 thou/uL (0.11-0.59); #Neutrophils 12.1 thou/uL (1.40-6.50); %Basophils 0.2 % (0.0-1.0); %Eosinophils 1.4 % (0.0-10.0); %Lymphocytes 8.1 % (21.0-51.0); %Monocytes 4.9 % (0.0-10.0); %Neutrophils 85.4 % (42.0-75.0); Hemoglobin 9.6 g/dL (12.0-16.0); Mean Corpuscular HGB CONC 31.5 g/dL (32.0-36.0); Mean Platelet Volume 7.3 fL (7.4-10.4); Platelet Count 472 thou/uL (130-400); RBC Distribution Width 14.8 % (11.5-14.5); Red Blood Cell (RBC) Count 3.01 mill/uL (4.20-5.40); White Blood Cell (WBC) Count 14.2 thou/uL (4.8-10.8)
[2021-08-04 12:59] LABS: Clarity Very Cloudy (Clear)
[2021-08-04 13:00] LABS: Specific Gravity, Urine 1.025 (1.002-1.036)
[2021-08-04 13:01] LABS: Leukocyte Large (Negative); Nitrite Negative (Negative)
[2021-08-04 13:01] LABS: INR-International Normal Ratio 0.9; Prothrombin Time 12.1 sec (12.0-14.7)
[2021-08-04 13:02] LABS: PTT 26.1 sec (22.9-36.1)
[2021-08-04 13:02] LABS: Glucose, Urine (Dipstick) Negative (Negative); Ketone, Urine Negative (Negative); Protein, Urine (Dipstick) Greater than 600 mg/dL (Neg-Trace)
[2021-08-04 13:03] LABS: Bilirubin Small (Negative); Blood, Urine Large (Negative); Urobilinogen 0.2 mg/dL (Less than 2)
[2021-08-04 13:10] LABS: Bacteria/HPF 4+ HPF (None Seen); Squamous Epithelial 0-3 HPF (0-3); WBC/HPF Greater Than 50 HPF (0-3)
[2021-08-04 13:56] LABS: SARS-CoV-2 NAA Rapid Test Not Detected (NotDetected)
[2021-08-04 14:29] LABS: ALT (SGPT) Less than 7 U/L (8-55); AST (SGOT) 22 U/L (5-34); Alkaline Phosphatase 99 U/L (40-110); Anion Gap 17 mmol/L (10-20); BUN (Urea Nitrogen) 59 mg/dL (9.8-20.1); Bilirubin, Total 0.6 mg/dL (0.2-1.2); Calc. Creatinine Clearance 0 mL/min (70-130); Calcium 9.5 mg/dL (7.8-10.44); Carbon Dioxide 24 mmol/L (23-31); Chloride 101 mmol/L (98-107); Globulin 3.5 g/dL (2.4-3.5); Glucose 241 mg/dL (83-110); Magnesium 2.1 mg/dL (1.6-2.6); Potassium 4.1 mmol/L (3.5-5.1); Protein, Total 6.5 g/dL (5.8-8.1); Sodium 138 mmol/L (136-145)
[2021-08-04] MEDS ORDERED: cefTRIAXone\\ROCEPHIN 2 GM VIAL ONE (14:29)
[2021-08-04] MEDS ORDERED: Ondansetron PF 4 MG/2 ML Vial IVP PRN (19:15)
[2021-08-04] MEDS ORDERED: Sodium Chloride 0.9% 1,000 ML IV SCH (19:15)
[2021-08-04] MEDS ORDERED: Acetaminophen 325 MG TAB PO PRN (19:15)
[2021-08-04] MEDS ORDERED: Ondansetron ODT 4 MG TAB SL PRN (19:15)
[2021-08-04] MEDS ORDERED: Dextrose 50% Abboject 50 ML SYRINGE SLOW IVP PRN (20:51)
[2021-08-04] MEDS ORDERED: Dextrose 5% in Water 1,000 ML IV PRN (20:51)
[2021-08-04] MEDS ORDERED: Ferrous Sulfate 325 MG TAB PO SCH (21:00)
[2021-08-04] MEDS: Ascorbic Acid 500 mg Chewable Tablet PO SCH (21:48)
[2021-08-04] MEDS: Gabapentin 400 MG CAP PO SCH (21:48)
[2021-08-04] MEDS: Pantoprazole 40 MG VIAL IVP SCH (21:49)
[2021-08-05 00:05] VITALS: BMI 26.5
[2021-08-05 04:35] LABS: #Eosinphils 0.1 thou/uL (0.0-0.7); #Lymphocytes 1.3 thou/uL (1.20-3.40); #Neutrophils 17.6 thou/uL (1.40-6.50); %Basophils 0.1 % (0.0-1.0); %Eosinophils 0.4 % (0.0-10.0); %Lymphocytes 6.3 % (21.0-51.0); %Monocytes 4.8 % (0.0-10.0); %Neutrophils 88.3 % (42.0-75.0); Hemoglobin 7.8 g/dL (12.0-16.0); Mean Corpuscular HGB CONC 30.8 g/dL (32.0-36.0); Mean Corpuscular Hemoglobin 31.6 pg (27.0-31.0); Mean Platelet Volume 7.3 fL (7.4-10.4); Platelet Count 476 thou/uL (130-400); RBC Distribution Width 14.9 % (11.5-14.5); Red Blood Cell (RBC) Count 2.47 mill/uL (4.20-5.40); White Blood Cell (WBC) Count 19.9 thou/uL (4.8-10.8)
[2021-08-05 04:56] LABS: Anion Gap 18 mmol/L (10-20); BUN (Urea Nitrogen) 63 mg/dL (9.8-20.1); Calc. Creatinine Clearance 9 mL/min (70-130); Carbon Dioxide 22 mmol/L (23-31); Chloride 102 mmol/L (98-107); Glucose 234 mg/dL (83-110); Potassium 4.1 mmol/L (3.5-5.1); Sodium 138 mmol/L (136-145)
[2021-08-05] MEDS: HumaLOG 300 UNITS/3 ML VIAL SC PRN ×3 (06:39→16:45)
[2021-08-05] MEDS ORDERED: Ergocalciferol 1.25 MG(50,000 UNITS) CAP PO SCH (09:00)
[2021-08-05] MEDS: Pantoprazole 40 MG VIAL IVP SCH ×2 (09:19→20:29)
[2021-08-05] MEDS: Ferrous Sulfate 325 MG TAB PO SCH ×2 (09:19→16:45)
[2021-08-05] MEDS: Lantus 1000 UNITS/10 ML VIAL SC SCH (09:20)
[2021-08-05] MEDS: Ascorbic Acid 500 mg Chewable Tablet PO SCH ×2 (09:20→20:31)
[2021-08-05] MEDS: Docusate 100 MG CAP PO SCH (09:20)
[2021-08-05] MEDS: Gabapentin 400 MG CAP PO SCH ×2 (09:20→20:30)
[2021-08-05 12:21] LABS: #Basophils 0.1 thou/uL (0.0-0.2); #Eosinphils 0.1 thou/uL (0.0-0.7); #Lymphocytes 0.9 thou/uL (1.20-3.40); #Monocytes 0.7 thou/uL (0.11-0.59); #Neutrophils 12.9 thou/uL (1.40-6.50); %Basophils 0.4 % (0.0-1.0); %Eosinophils 0.8 % (0.0-10.0); %Monocytes 4.8 % (0.0-10.0); %Neutrophils 88.1 % (42.0-75.0); Hemoglobin 7.3 g/dL (12.0-16.0); Mean Corpuscular HGB CONC 32.1 g/dL (32.0-36.0); Mean Corpuscular Hemoglobin 32.6 pg (27.0-31.0); Mean Platelet Volume 7.4 fL (7.4-10.4); Platelet Count 432 thou/uL (130-400); RBC Distribution Width 14.8 % (11.5-14.5); Red Blood Cell (RBC) Count 2.26 mill/uL (4.20-5.40); White Blood Cell (WBC) Count 14.7 thou/uL (4.8-10.8)
[2021-08-05] MEDS ORDERED: cefTRIAXone\\ROCEPHIN 1 GM in Sodium Chloride 0.9% 100 ML IVPB SCH (15:00)
[2021-08-05 18:37] LABS: #Eosinphils 0.2 thou/uL (0.0-0.7); #Lymphocytes 1.4 thou/uL (1.20-3.40); #Neutrophils 14.3 thou/uL (1.40-6.50); %Basophils 0.2 % (0.0-1.0); %Eosinophils 1.1 % (0.0-10.0); %Lymphocytes 8.1 % (21.0-51.0); %Monocytes 6.1 % (0.0-10.0); %Neutrophils 84.5 % (42.0-75.0); Hemoglobin 8.7 g/dL (12.0-16.0); Mean Corpuscular HGB CONC 31.6 g/dL (32.0-36.0); Mean Corpuscular Hemoglobin 32.6 pg (27.0-31.0); Mean Platelet Volume 7.1 fL (7.4-10.4); Platelet Count 489 thou/uL (130-400); RBC Distribution Width 14.8 % (11.5-14.5); Red Blood Cell (RBC) Count 2.66 mill/uL (4.20-5.40); White Blood Cell (WBC) Count 16.9 thou/uL (4.8-10.8)
[2021-08-06] MEDS: Acetaminophen 325 MG TAB PO PRN ×2 (03:19→20:27)
[2021-08-06] MEDS: hydrALAZINE 20 MG/ML VIAL SLOW IVP PRN ×2 (06:32→20:27)
[2021-08-06] MEDS: Pantoprazole 40 MG VIAL IVP SCH ×2 (08:09→20:26)
[2021-08-06] MEDS: Lantus 1000 UNITS/10 ML VIAL SC SCH (08:09)
[2021-08-06] MEDS ORDERED: Meropenem 1 GM in Sodium Chloride 0.9% 100 ML IVPB SCH ×2 (08:22→08:45)
[2021-08-06] MEDS ORDERED: PROPOFOL 200 MG/20 ML VIAL ONE (10:53)
[2021-08-06] MEDS ORDERED: Lidocaine 1% PF 5 ML VIAL ONE (10:53)
[2021-08-06] MEDS: Ferrous Sulfate 325 MG TAB PO SCH ×2 (11:26→17:22)
[2021-08-06] MEDS: Gabapentin 400 MG CAP PO SCH ×2 (11:27→20:26)
[2021-08-06] MEDS: Docusate 100 MG CAP PO SCH (11:27)
[2021-08-06] MEDS: Ascorbic Acid 500 mg Chewable Tablet PO SCH ×2 (11:27→20:26)
[2021-08-06 13:45] LABS: #Basophils 0.1 thou/uL (0.0-0.2); #Eosinphils 0.2 thou/uL (0.0-0.7); #Lymphocytes 1.2 thou/uL (1.20-3.40); #Monocytes 0.9 thou/uL (0.11-0.59); #Neutrophils 9.6 thou/uL (1.40-6.50); %Basophils 0.5 % (0.0-1.0); %Eosinophils 1.7 % (0.0-10.0); %Monocytes 7.9 % (0.0-10.0); %Neutrophils 80.1 % (42.0-75.0); Hemoglobin 8.5 g/dL (12.0-16.0); Mean Corpuscular HGB CONC 32.1 g/dL (32.0-36.0); Mean Corpuscular Hemoglobin 33.3 pg (27.0-31.0); Mean Platelet Volume 7.4 fL (7.4-10.4); Platelet Count 494 thou/uL (130-400); RBC Distribution Width 14.7 % (11.5-14.5); Red Blood Cell (RBC) Count 2.55 mill/uL (4.20-5.40)
[2021-08-06] MEDS: Meropenem 500 MG in Sodium Chloride 0.9% 100 ML IVPB SCH (17:24)
[2021-08-06] MEDS: HumaLOG 300 UNITS/3 ML VIAL SC PRN (21:50)
[2021-08-07] MEDS: Acetaminophen 325 MG TAB PO PRN ×2 (03:34→21:53)
[2021-08-07] MEDS: Ferrous Sulfate 325 MG TAB PO SCH ×2 (08:47→17:38)
[2021-08-07] MEDS: Pantoprazole 40 MG VIAL IVP SCH ×2 (08:48→21:53)
[2021-08-07] MEDS: Docusate 100 MG CAP PO SCH (08:48)
[2021-08-07] MEDS: Ascorbic Acid 500 mg Chewable Tablet PO SCH ×2 (08:48→21:52)
[2021-08-07] MEDS: Lantus 1000 UNITS/10 ML VIAL SC SCH (08:49)
[2021-08-07] MEDS: Gabapentin 400 MG CAP PO SCH ×2 (08:56→21:52)
[2021-08-07] MEDS ORDERED: Carvedilol 6.25 MG TAB PO SCH ×2 (15:30→17:00)
[2021-08-07] MEDS: Meropenem 500 MG in Sodium Chloride 0.9% 100 ML IVPB SCH (18:54)
[2021-08-07] MEDS: Aspirin 81 mg Enteric Coated Tablet PO SCH (21:52)
[2021-08-08 04:45] LABS: #Eosinphils 0.2 thou/uL (0.0-0.7); #Lymphocytes 0.9 thou/uL (1.20-3.40); #Monocytes 0.9 thou/uL (0.11-0.59); #Neutrophils 5.3 thou/uL (1.40-6.50); %Basophils 0.6 % (0.0-1.0); %Eosinophils 2.2 % (0.0-10.0); %Lymphocytes 12.4 % (21.0-51.0); %Monocytes 12.7 % (0.0-10.0); %Neutrophils 72.1 % (42.0-75.0); Hemoglobin 8.3 g/dL (12.0-16.0); Mean Corpuscular HGB CONC 30.8 g/dL (32.0-36.0); Mean Corpuscular Hemoglobin 31.6 pg (27.0-31.0); Mean Platelet Volume 6.9 fL (7.4-10.4); Platelet Count 508 thou/uL (130-400); RBC Distribution Width 14.8 % (11.5-14.5); Red Blood Cell (RBC) Count 2.61 mill/uL (4.20-5.40); White Blood Cell (WBC) Count 7.3 thou/uL (4.8-10.8)
[2021-08-08 04:59] LABS: Anion Gap 14 mmol/L (10-20); BUN (Urea Nitrogen) 28 mg/dL (9.8-20.1); Calc. Creatinine Clearance 12 mL/min (70-130); Carbon Dioxide 26 mmol/L (23-31); Chloride 102 mmol/L (98-107); Glucose 172 mg/dL (83-110); Potassium 3.7 mmol/L (3.5-5.1); Sodium 138 mmol/L (136-145)
[2021-08-08] MEDS: HumaLOG 300 UNITS/3 ML VIAL SC PRN ×3 (06:08→16:43)
[2021-08-08] MEDS ORDERED: Clopidogrel Bisulfate 75 MG TAB PO SCH (09:00)
[2021-08-08] MEDS: Pantoprazole 40 MG VIAL IVP SCH (09:30)
[2021-08-08] MEDS: Lantus 1000 UNITS/10 ML VIAL SC SCH (09:30)
[2021-08-08] MEDS: Docusate 100 MG CAP PO SCH (09:31)
[2021-08-08] MEDS: Ferrous Sulfate 325 MG TAB PO SCH (09:31)
[2021-08-08] MEDS: Gabapentin 400 MG CAP PO SCH (09:31)
[2021-08-08] MEDS: Ascorbic Acid 500 mg Chewable Tablet PO SCH (09:31)
[2021-08-08] MEDS: Carvedilol 6.25 MG TAB PO SCH ×2 (09:32→16:44)
[2021-08-08] MEDS: Aspirin 81 mg Enteric Coated Tablet PO SCH (09:32)
[2021-08-08 12:06] VITALS: TEMP 98
[2021-08-08 14:28] VITALS: BP 159/69
[2021-08-08] MEDS: Meropenem 500 MG in Sodium Chloride 0.9% 100 ML IVPB SCH (14:30)
== END 2021-08-08 18:33 | DRG 871 ==
LOC: ERS 11:28 → ERHOLD 15:05 → 2NO 19:07
PROVIDERS: ADMIT Internal Medicine; ATTEND Internal Medicine
PROC: 0DJ08ZZ Inspection of Upper Intestinal Tract, Via Natural or Artificial Opening Endoscopic (ICD-10-PCS; principal; 2021-08-06)
DX: A41.9 Sepsis, unspecified organism (principal); J96.01 Acute respiratory failure with hypoxia; N18.6 End stage renal disease; Z20.822 Contact with and (suspected) exposure to COVID-19; G92.8 Other toxic encephalopathy; N39.0 Urinary tract infection, site not specified; I50.32 Chronic diastolic (congestive) heart failure; I13.2 Hypertensive heart and chronic kidney disease with heart failure and with stage 5 chronic kidney disease, or end stage renal disease; K92.1 Melena; Z16.24 Resistance to multiple antibiotics; E78.5 Hyperlipidemia, unspecified; I25.10 Atherosclerotic heart disease of native coronary artery without angina pectoris; B96.20 Unspecified Escherichia coli [E. coli] as the cause of diseases classified elsewhere; Z96.642 Presence of left artificial hip joint; D63.1 Anemia in chronic kidney disease; E11.22 Type 2 diabetes mellitus with diabetic chronic kidney disease; E11.40 Type 2 diabetes mellitus with diabetic neuropathy, unspecified; Z99.2 Dependence on renal dialysis; Z79.4 Long term (current) use of insulin; Z79.899 Other long term (current) drug therapy; Z79.82 Long term (current) use of aspirin; Z86.73 Personal history of transient ischemic attack (TIA), and cerebral infarction without residual deficits; Z90.49 Acquired absence of other specified parts of digestive tract; Z98.890 Other specified postprocedural states
CPT/HCPCS: 36415; 36416; 70450; 71045; 74176; 80048; 80053; 81003; 81015; 82274; 83605; 83735; 83880; 84484; 85025; 85610; 85730; 86850; 86900; 86901; 87040; 87077; 87086; 87186; 93005; 94760; C9113; J0360; J0696; J1815; J2185; J2704; J3490; J7050; U0002

== ENCOUNTER 2021-10-29 15:13 | Inpatient (IN) | payer MEDICARE ==
[2021-10-29 15:44] LABS: #Eosinphils 0.1 thou/uL (0.0-0.7); #Monocytes 1.4 thou/uL (0.11-0.59); #Neutrophils 8.3 thou/uL (1.40-6.50); %Basophils 0.3 % (0.0-1.0); %Eosinophils 0.5 % (0.0-10.0); %Lymphocytes 9.1 % (21.0-51.0); %Monocytes 13.4 % (0.0-10.0); %Neutrophils 76.7 % (42.0-75.0); Hemoglobin 10.7 g/dL (12.0-16.0); Mean Corpuscular HGB CONC 31.6 g/dL (32.0-36.0); Mean Corpuscular Hemoglobin 32.3 pg (27.0-31.0); Mean Platelet Volume 7.9 fL (7.4-10.4); Platelet Count 339 thou/uL (130-400); RBC Distribution Width 15.4 % (11.5-14.5); White Blood Cell (WBC) Count 10.8 thou/uL (4.8-10.8)
[2021-10-29] MEDS ORDERED: Acetaminophen 650 MG Suppository ONE (15:57)
[2021-10-29] MEDS ORDERED: Cefepime 2 GM VIAL ONE (15:57)
[2021-10-29 16:13] LABS: ALT (SGPT) 8 U/L (8-55); AST (SGOT) 23 U/L (5-34); Albumin 2.9 g/dL (3.4-4.8); Alkaline Phosphatase 95 U/L (40-110); Anion Gap 20 mmol/L (10-20); BUN (Urea Nitrogen) 53 mg/dL (9.8-20.1); Bilirubin, Total 0.6 mg/dL (0.2-1.2); Calc. Creatinine Clearance 0 mL/min (70-130); Calcium 10.2 mg/dL (7.8-10.44); Carbon Dioxide 21 mmol/L (23-31); Chloride 96 mmol/L (98-107); Globulin 3.5 g/dL (2.4-3.5); Glucose 364 mg/dL (83-110); Protein, Total 6.4 g/dL (5.8-8.1); Sodium 133 mmol/L (136-145)
[2021-10-29 16:49] LABS: Clarity Extra Turbid (Clear); Specific Gravity, Urine 1.018 (1.002-1.036)
[2021-10-29 16:50] LABS: Bacteria/HPF 4+ HPF (None Seen); Bilirubin Unable to Interpret (Negative); Blood, Urine Unable to Interpret (Negative); Glucose, Urine (Dipstick) Unable to Interpret mg/dL (Negative); Ketone, Urine Unable to Interpret mg/dL (Negative); Leukocyte Unable to Interpret (Negative); Nitrite Unable to Interpret (Negative); Protein, Urine (Dipstick) Unable to Interpret mg/dL (Neg-Trace); Urobilinogen UNABLE TO INTERPRET mg/dL (Less than 2); WBC/HPF Greater than 50 HPF (0-3); pH, Urine 6.2 (5.0-9.0)
[2021-10-29 17:07] LABS: CKMB 2.9 ng/mL (0-6.6)
[2021-10-29 17:34] LABS: SARS-CoV-2 NAA Rapid Test Not Detected (NotDetected)
[2021-10-29] MEDS ORDERED: Dextrose 50% Abboject 50 ML SYRINGE SLOW IVP PRN (18:55)
[2021-10-29] MEDS ORDERED: Dextrose 5% in Water 1,000 ML IV PRN (18:55)
[2021-10-29] MEDS ORDERED: Ondansetron ODT 4 MG TAB PO PRN (18:56)
[2021-10-29] MEDS ORDERED: Senokot S 8.6-50 MG TAB PO PRN (18:56)
[2021-10-29] MEDS ORDERED: Ondansetron PF 4 MG/2 ML Vial IVP PRN (18:56)
[2021-10-29 19:46] LABS: Troponin I 0.043 ng/mL (< 0.028)
[2021-10-29] MEDS: Ascorbic Acid 500 mg Chewable Tablet PO SCH (22:41)
[2021-10-29] MEDS: Lisinopril 10 MG TAB PO SCH (22:41)
[2021-10-29] MEDS: hydrALAZINE 25 MG TAB PO SCH (22:41)
[2021-10-29] MEDS: Gabapentin 400 MG CAP PO SCH (22:42)
[2021-10-29] MEDS: Insulin Glargine 30 UNITS/0.3 ML VIAL SC SCH (22:43)
[2021-10-29] MEDS: HumaLOG 300 UNITS/3 ML VIAL SC PRN (22:43)
[2021-10-29 23:02] LABS: Troponin I 0.045 ng/mL (< 0.028)
[2021-10-30 02:17] VITALS: BMI 26.3
[2021-10-30] MEDS ORDERED: Cefepime 1 GM in Sodium Chloride 0.9% 100 ML IVPB SCH (04:00)
[2021-10-30 06:23] LABS: #Eosinphils 0.1 thou/uL (0.0-0.7); #Monocytes 1.1 thou/uL (0.11-0.59); #Neutrophils 6.6 thou/uL (1.40-6.50); %Basophils 0.2 % (0.0-1.0); %Eosinophils 1.4 % (0.0-10.0); %Lymphocytes 11.1 % (21.0-51.0); %Monocytes 12.6 % (0.0-10.0); %Neutrophils 74.7 % (42.0-75.0); Hemoglobin 11.2 g/dL (12.0-16.0); Mean Corpuscular HGB CONC 31.5 g/dL (32.0-36.0); Mean Corpuscular Hemoglobin 32.5 pg (27.0-31.0); Mean Platelet Volume 7.7 fL (7.4-10.4); Platelet Count 348 thou/uL (130-400); RBC Distribution Width 15.4 % (11.5-14.5); Red Blood Cell (RBC) Count 3.43 mill/uL (4.20-5.40); White Blood Cell (WBC) Count 8.9 thou/uL (4.8-10.8)
[2021-10-30 06:43] LABS: Anion Gap 17 mmol/L (10-20); BUN (Urea Nitrogen) 61 mg/dL (9.8-20.1); Calc. Creatinine Clearance 7 mL/min (70-130); Calcium 10.1 mg/dL (7.8-10.44); Carbon Dioxide 22 mmol/L (23-31); Chloride 99 mmol/L (98-107); Glucose 309 mg/dL (83-110); Sodium 134 mmol/L (136-145)
[2021-10-30] MEDS: hydrALAZINE 25 MG TAB PO SCH ×2 (08:37→22:05)
[2021-10-30] MEDS: Lisinopril 10 MG TAB PO SCH ×2 (08:37→22:05)
[2021-10-30] MEDS: Carvedilol 25 MG TAB PO SCH ×2 (08:37→15:57)
[2021-10-30] MEDS: Gabapentin 400 MG CAP PO SCH ×2 (08:38→22:04)
[2021-10-30] MEDS: Ascorbic Acid 500 mg Chewable Tablet PO SCH ×2 (08:38→22:04)
[2021-10-30 11:59] LABS: HBSAB Concentration Less than 8.00 mIU/mL; HBSAg Index 0.22 S/CO (0-0.99); Hep B Surf AB Non-Reactive (NonReactive); Hep B Surf Ag Non-Reactive S/CO (NonReactive)
[2021-10-30] MEDS ORDERED: Meropenem 1 GM in Sodium Chloride 0.9% 100 ML IVPB SCH (14:00)
[2021-10-30] MEDS ORDERED: cefTRIAXone\\ROCEPHIN 1 GM in Sodium Chloride 0.9% 100 ML IVPB SCH (16:00)
[2021-10-30] MEDS ORDERED: Cefepime 0.25 GM in Sodium Chloride 0.9% 100 ML IVPB SCH (16:00)
[2021-10-30] MEDS: Insulin Glargine 30 UNITS/0.3 ML VIAL SC SCH (22:06)
[2021-10-31] MEDS: Meropenem 500 MG in Sodium Chloride 0.9% 100 ML IVPB SCH (02:33)
[2021-10-31] MEDS: Acetaminophen 325 MG TAB PO PRN ×2 (02:40→20:18)
[2021-10-31 05:57] LABS: #Eosinphils 0.1 thou/uL (0.0-0.7); #Monocytes 1.2 thou/uL (0.11-0.59); #Neutrophils 6.8 thou/uL (1.40-6.50); %Eosinophils 1.6 % (0.0-10.0); %Monocytes 12.9 % (0.0-10.0); %Neutrophils 74.5 % (42.0-75.0); Hemoglobin 11.1 g/dL (12.0-16.0); Mean Corpuscular HGB CONC 31.9 g/dL (32.0-36.0); Mean Corpuscular Hemoglobin 32.8 pg (27.0-31.0); Mean Platelet Volume 7.8 fL (7.4-10.4); Platelet Count 305 thou/uL (130-400); RBC Distribution Width 15.4 % (11.5-14.5); Red Blood Cell (RBC) Count 3.39 mill/uL (4.20-5.40); White Blood Cell (WBC) Count 9.1 thou/uL (4.8-10.8)
[2021-10-31 06:19] LABS: Anion Gap 18 mmol/L (10-20); BUN (Urea Nitrogen) 37 mg/dL (9.8-20.1); Calc. Creatinine Clearance 11 mL/min (70-130); Calcium 9.6 mg/dL (7.8-10.44); Carbon Dioxide 24 mmol/L (23-31); Chloride 95 mmol/L (98-107); Glucose 275 mg/dL (83-110); Potassium 3.6 mmol/L (3.5-5.1); Sodium 133 mmol/L (136-145)
[2021-10-31] MEDS: HumaLOG 300 UNITS/3 ML VIAL SC PRN ×4 (07:29→21:32)
[2021-10-31] MEDS: Lisinopril 10 MG TAB PO SCH ×2 (08:26→20:18)
[2021-10-31] MEDS: Ascorbic Acid 500 mg Chewable Tablet PO SCH ×2 (08:26→20:16)
[2021-10-31] MEDS: hydrALAZINE 25 MG TAB PO SCH ×2 (08:26→20:17)
[2021-10-31] MEDS: Carvedilol 25 MG TAB PO SCH ×2 (08:27→17:39)
[2021-10-31] MEDS: Gabapentin 400 MG CAP PO SCH ×2 (08:27→20:17)
[2021-10-31] MEDS: Insulin Glargine 30 UNITS/0.3 ML VIAL SC SCH (21:32)
[2021-11-01] MEDS: Meropenem 500 MG in Sodium Chloride 0.9% 100 ML IVPB SCH (01:11)
[2021-11-01] MEDS: Gabapentin 400 MG CAP PO SCH ×2 (09:49→20:28)
[2021-11-01] MEDS: Carvedilol 25 MG TAB PO SCH ×3 (09:49→20:26)
[2021-11-01] MEDS: Lisinopril 10 MG TAB PO SCH ×2 (09:49→20:28)
[2021-11-01] MEDS: Ascorbic Acid 500 mg Chewable Tablet PO SCH ×2 (09:49→20:27)
[2021-11-01] MEDS: hydrALAZINE 25 MG TAB PO SCH ×2 (09:49→20:26)
[2021-11-01] MEDS: Acetaminophen 325 MG TAB PO PRN (20:28)
[2021-11-01] MEDS: Insulin Glargine 30 UNITS/0.3 ML VIAL SC SCH (20:56)
[2021-11-01] MEDS: HumaLOG 300 UNITS/3 ML VIAL SC PRN (20:57)
[2021-11-02] MEDS: Acetaminophen 325 MG TAB PO PRN ×3 (00:30→19:57)
[2021-11-02] MEDS: Meropenem 500 MG in Sodium Chloride 0.9% 100 ML IVPB SCH (01:03)
[2021-11-02] MEDS: HumaLOG 300 UNITS/3 ML VIAL SC PRN ×3 (04:32→19:58)
[2021-11-02] MEDS ORDERED: Insulin Glargine 30 UNITS/0.3 ML VIAL SC STA (07:27)
[2021-11-02 07:33] LABS: Anion Gap 13 mmol/L (10-20); BUN (Urea Nitrogen) 30 mg/dL (9.8-20.1); Calc. Creatinine Clearance 12 mL/min (70-130); Calcium 9.3 mg/dL (7.8-10.44); Carbon Dioxide 28 mmol/L (23-31); Chloride 98 mmol/L (98-107); Glucose 175 mg/dL (83-110); Hemoglobin 11.4 g/dL (12.0-16.0); Mean Corpuscular HGB CONC 31.6 g/dL (32.0-36.0); Mean Corpuscular Hemoglobin 32.7 pg (27.0-31.0); Mean Platelet Volume 7.9 fL (7.4-10.4); Platelet Count 273 thou/uL (130-400); Potassium 3.8 mmol/L (3.5-5.1); RBC Distribution Width 15.5 % (11.5-14.5); Red Blood Cell (RBC) Count 3.49 mill/uL (4.20-5.40); Sodium 135 mmol/L (136-145); White Blood Cell (WBC) Count 8.2 thou/uL (4.8-10.8)
[2021-11-02] MEDS: Carvedilol 25 MG TAB PO SCH ×2 (07:55→15:57)
[2021-11-02] MEDS: Amoxicillin/Potassium Clav 250 MG TAB PO SCH (07:56)
[2021-11-02] MEDS: Gabapentin 400 MG CAP PO SCH ×2 (07:56→19:56)
[2021-11-02] MEDS: hydrALAZINE 25 MG TAB PO SCH ×2 (07:56→19:56)
[2021-11-02] MEDS: Lisinopril 10 MG TAB PO SCH ×2 (07:56→19:57)
[2021-11-02] MEDS: Ascorbic Acid 500 mg Chewable Tablet PO SCH ×2 (07:57→19:57)
[2021-11-02 08:19] LABS: Band 18 % (5-11); Eosinophils 6 % (0-10); Hypochromia SLIGHT = 6-15 cells (100X) (0-5/hpf); Lymphocytes 11 % (21-51); MDiff Complete? YES; Macrocytosis SLIGHT = 6-15 cells (100X) (0-5/hpf); Metamyelocyte 3 % (0-0); Monocytes 11 % (0-10); Myelocyte 4 % (0-0); Neutrophil 45 % (42-75); Platelet Morphology Comment Appears Adequate; Polychromasia SLIGHT = 2-3 cells (100X) (0-2/hpf); Reactive Lymphocytes 2 % (0-10); Stomatocytes SLIGHT = 2-5 cells (100X) (0-1/hpf); Target Cells SLIGHT = 2-5 cells (100X) (0-1/hpf)
[2021-11-02] MEDS: Insulin Glargine 30 UNITS/0.3 ML VIAL SC SCH (19:58)
[2021-11-03] MEDS: Carvedilol 25 MG TAB PO SCH (08:10)
[2021-11-03] MEDS: Gabapentin 400 MG CAP PO SCH (08:10)
[2021-11-03] MEDS: Lisinopril 10 MG TAB PO SCH (08:10)
[2021-11-03] MEDS: hydrALAZINE 25 MG TAB PO SCH (08:11)
[2021-11-03] MEDS: Ascorbic Acid 500 mg Chewable Tablet PO SCH (08:11)
[2021-11-03] MEDS: Amoxicillin/Potassium Clav 250 MG TAB PO SCH (08:11)
[2021-11-03 11:49] VITALS: TEMP 98
[2021-11-03 11:52] VITALS: BP 131/62
== END 2021-11-03 11:44 | DRG 689 ==
LOC: ERS 15:13 → T4-A 18:25
PROVIDERS: ADMIT Internal Medicine; ATTEND Internal Medicine
PROC: 5A1D70Z Performance of Urinary Filtration, Intermittent, Less than 6 Hours Per Day (ICD-10-PCS; principal; 2021-10-30)
DX: N30.01 Acute cystitis with hematuria (principal); G93.41 Metabolic encephalopathy; N18.6 End stage renal disease; I13.2 Hypertensive heart and chronic kidney disease with heart failure and with stage 5 chronic kidney disease, or end stage renal disease; I50.42 Chronic combined systolic (congestive) and diastolic (congestive) heart failure; Z20.822 Contact with and (suspected) exposure to COVID-19; E78.5 Hyperlipidemia, unspecified; E78.00 Pure hypercholesterolemia, unspecified; E11.22 Type 2 diabetes mellitus with diabetic chronic kidney disease; I25.10 Atherosclerotic heart disease of native coronary artery without angina pectoris; Z96.642 Presence of left artificial hip joint; D63.1 Anemia in chronic kidney disease; F03.90 Unspecified dementia, unspecified severity, without behavioral disturbance, psychotic disturbance, mood disturbance, and anxiety; R77.8 Other specified abnormalities of plasma proteins; R13.10 Dysphagia, unspecified; Z99.2 Dependence on renal dialysis; Z90.710 Acquired absence of both cervix and uterus; Z79.899 Other long term (current) drug therapy; Z79.4 Long term (current) use of insulin; Z79.84 Long term (current) use of oral hypoglycemic drugs; Z90.49 Acquired absence of other specified parts of digestive tract; Z90.89 Acquired absence of other organs; Z98.890 Other specified postprocedural states; I69.391 Dysphagia following cerebral infarction
CPT/HCPCS: 36415; 36416; 51701; 70450; 71045; 74176; 80048; 80053; 81003; 81015; 82553; 83605; 84484; 85025; 86706; 87040; 87086; 87340; 90935; 93005; 96365; G0257; J0692; J1815; J2185; J3490

== ENCOUNTER 2021-11-30 14:15 | Emergency (ER) | payer MEDICARE ==
[2021-11-30] MEDS ORDERED: Ondansetron PF 4 MG/2 ML Vial ONE (16:01)
== END 2021-11-30 17:39 | disposition home or self-care (01) ==
LOC: ERS 14:15
DX: S90.32XA Contusion of left foot, initial encounter (principal); W19.XXXA Unspecified fall, initial encounter
CPT/HCPCS: J2405

== ENCOUNTER 2022-01-21 08:47 | Inpatient (IN) | payer MEDICARE, OTHER ==
[2022-01-21] MEDS ORDERED: Ergocalciferol 1.25 MG(50,000 UNITS) CAP PO SCH (09:00)
[2022-01-21 10:09] LABS: #Eosinphils 0.1 thou/uL (0.0-0.7); #Lymphocytes 1.3 thou/uL (1.20-3.40); #Monocytes 1.1 thou/uL (0.11-0.59); #Neutrophils 10.2 thou/uL (1.40-6.50); %Basophils 0.2 % (0.0-1.0); %Eosinophils 0.8 % (0.0-10.0); %Lymphocytes 10.2 % (21.0-51.0); %Monocytes 8.8 % (0.0-10.0); Hemoglobin 13.7 g/dL (12.0-16.0); Mean Corpuscular HGB CONC 31.4 g/dL (32.0-36.0); Mean Corpuscular Hemoglobin 32.4 pg (27.0-31.0); Mean Platelet Volume 8.1 fL (7.4-10.4); Platelet Count 309 thou/uL (130-400); RBC Distribution Width 16.3 % (11.5-14.5); Red Blood Cell (RBC) Count 4.22 mill/uL (4.20-5.40); White Blood Cell (WBC) Count 12.8 thou/uL (4.8-10.8)
[2022-01-21 10:24] LABS: ALT (SGPT) Less than 7 U/L (8-55); AST (SGOT) 11 U/L (5-34); Albumin 3.1 g/dL (3.4-4.8); Alkaline Phosphatase 130 U/L (40-110); Anion Gap 16 mmol/L (10-20); BUN (Urea Nitrogen) 50 mg/dL (9.8-20.1); Bilirubin, Total 0.5 mg/dL (0.2-1.2); Calc. Creatinine Clearance 0 mL/min (70-130); Calcium 10.3 mg/dL (7.8-10.44); Carbon Dioxide 27 mmol/L (23-31); Chloride 101 mmol/L (98-107); Estimated GFR 6; Globulin 3.9 g/dL (2.4-3.5); Glucose 189 mg/dL (83-110); Potassium 3.2 mmol/L (3.5-5.1); Sodium 141 mmol/L (136-145)
[2022-01-21 10:29] LABS: Bacteria/HPF 4+ HPF (None Seen); Bilirubin Negative (Negative); Blood, Urine 2+ (Negative); Clarity Extra Turbid (Clear); Glucose, Urine (Dipstick) 150 mg/dL (Negative); Ketone, Urine Trace mg/dL (Negative); Leukocyte 500 Leu/uL (Negative); Nitrite Negative (Negative); Protein, Urine (Dipstick) 300 mg/dL (Neg-Trace); Specific Gravity, Urine 1.011 (1.002-1.036); Urobilinogen Normal mg/dL (Less than 2); WBC/HPF Greater than 50 HPF (0-3); pH, Urine 5.5 (5.0-9.0)
[2022-01-21 10:32] LABS: Squamous Epithelial 0-3 HPF (0-3); Yeast-Budding None Seen HPF (None Seen)
[2022-01-21] MEDS ORDERED: cefTRIAXone\\ROCEPHIN 2 GM VIAL ONE (10:55)
[2022-01-21] MEDS ORDERED: Senokot S 8.6-50 MG TAB PO PRN (11:05)
[2022-01-21] MEDS ORDERED: Ondansetron PF 4 MG/2 ML Vial IVP PRN (11:05)
[2022-01-21] MEDS ORDERED: Acetaminophen 325 MG TAB PO PRN (11:05)
[2022-01-21] MEDS ORDERED: Guaifenesin DM 100-10/5 ML UDCUP PO PRN (11:05)
[2022-01-21] MEDS ORDERED: Non-Formulary Item 1 EACH (Cholecalciferol (Vitamin D3) [Vitamin D3] 50 MCG Capsule) PO SCH ×2 (11:45→12:30)
[2022-01-21] MEDS ORDERED: Docusate 100 MG CAP PO PRN (11:45)
[2022-01-21] MEDS ORDERED: Labetalol HCl 100 MG/20 ML VIAL SLOW IVP SCH (12:00)
[2022-01-21] MEDS ORDERED: Potassium Chloride 20 MEQ TAB ONE (12:13)
[2022-01-21] MEDS ORDERED: Labetalol HCl 100 MG/20 ML VIAL ONE (13:41)
[2022-01-21 15:03] LABS: Syphilis Antibody Nonreactive (Nonreactive); Syphilis Antibody Index 0.24 S/CO (<1.00 Non-Reactive)
[2022-01-21 16:00] VITALS: BMI 21.7
[2022-01-21] MEDS ORDERED: hydrALAZINE 20 MG/ML VIAL SLOW IVP PRN (18:01)
[2022-01-21] MEDS: Atorvastatin Calcium 40 MG TAB PO SCH (19:45)
[2022-01-21] MEDS: hydrALAZINE 25 MG TAB PO SCH (19:46)
[2022-01-21] MEDS: Carvedilol 6.25 MG TAB PO SCH (19:46)
[2022-01-21] MEDS: Lisinopril 10 MG TAB PO SCH (19:46)
[2022-01-21] MEDS: Gabapentin 400 MG CAP PO SCH (19:47)
[2022-01-21] MEDS ORDERED: Non-Formulary Item 1 EACH (Carvedilol [Carvedilol] 12.5 MG Tablet) PO SCH (21:00)
[2022-01-21] MEDS ORDERED: Famotidine 20 MG TAB PO SCH (21:00)
[2022-01-21] MEDS ORDERED: Lisinopril 20 MG TAB PO SCH (21:00)
[2022-01-22 07:25] LABS: #Eosinphils 0.1 thou/uL (0.0-0.7); #Monocytes 0.7 thou/uL (0.11-0.59); #Neutrophils 6.2 thou/uL (1.40-6.50); %Basophils 0.2 % (0.0-1.0); %Eosinophils 1.1 % (0.0-10.0); %Lymphocytes 12.9 % (21.0-51.0); %Monocytes 8.8 % (0.0-10.0); Mean Corpuscular HGB CONC 30.5 g/dL (32.0-36.0); Mean Corpuscular Hemoglobin 32.2 pg (27.0-31.0); Mean Platelet Volume 8.4 fL (7.4-10.4); Platelet Count 265 thou/uL (130-400); RBC Distribution Width 16.8 % (11.5-14.5); Red Blood Cell (RBC) Count 4.66 mill/uL (4.20-5.40); White Blood Cell (WBC) Count 8.1 thou/uL (4.8-10.8)
[2022-01-22 07:40] LABS: Anion Gap 21 mmol/L (10-20); BUN (Urea Nitrogen) 56 mg/dL (9.8-20.1); Calc. Creatinine Clearance 5 mL/min (70-130); Calcium 9.8 mg/dL (7.8-10.44); Carbon Dioxide 21 mmol/L (23-31); Cardiac Risk 5.7 (Less than 4.5); Chloride 104 mmol/L (98-107); Cholesterol 198 mg/dl (< 200 Desired); Estimated GFR 6; Glucose 164 mg/dL (83-110); HDL Cholesterol 35 mg/dL (>60 Neg Risk); LDL Cholesterol, Calculated 134 mg/dL; Sodium 142 mmol/L (136-145); Triglycerides 147 mg/dL (Less than 150)
[2022-01-22] MEDS ORDERED: Carvedilol 6.25 MG TAB PO SCH (09:49)
[2022-01-22] MEDS ORDERED: Carvedilol 25 MG TAB PO SCH (10:00)
[2022-01-22] MEDS ORDERED: Ascorbic Acid 500 mg Chewable Tablet PO SCH ×2 (10:20→10:30)
[2022-01-22] MEDS ORDERED: Zinc Sulfate 220 MG CAP PO SCH ×2 (10:20→10:30)
[2022-01-22] MEDS: Carvedilol 6.25 MG TAB PO SCH (10:49)
[2022-01-22] MEDS: Enoxaparin Sodium 30 MG/0.3 ML SYRINGE SC SCH (13:36)
[2022-01-22] MEDS: Aspirin 81 mg Enteric Coated Tablet PO SCH (13:37)
[2022-01-22] MEDS: Gabapentin 400 MG CAP PO SCH ×2 (13:37→22:07)
[2022-01-22] MEDS: hydrALAZINE 25 MG TAB PO SCH ×2 (13:37→22:07)
[2022-01-22] MEDS: Lisinopril 10 MG TAB PO SCH ×2 (13:38→22:08)
[2022-01-22] MEDS: cefTRIAXone\\ROCEPHIN 1 GM in Sodium Chloride 0.9% 100 ML IVPB SCH (13:38)
[2022-01-22] MEDS ORDERED: Famotidine 20 MG TAB PO SCH (21:00)
[2022-01-22] MEDS ORDERED: Cholecalciferol 1,000 UNITS (25 MCG) TAB PO SCH (21:00)
[2022-01-22] MEDS: Atorvastatin Calcium 40 MG TAB PO SCH (22:07)
[2022-01-22] MEDS: Carvedilol 25 MG TAB PO SCH (22:08)
[2022-01-22 22:09] VITALS: BP 137/67
[2022-01-23] MEDS ORDERED: Zinc Sulfate 220 MG CAP PO SCH ×2 (09:00)
[2022-01-23] MEDS ORDERED: Ascorbic Acid 500 mg Chewable Tablet PO SCH ×2 (09:00)
[2022-01-23] MEDS: Gabapentin 400 MG CAP PO SCH (09:21)
[2022-01-23] MEDS: Aspirin 81 mg Enteric Coated Tablet PO SCH (09:21)
[2022-01-23] MEDS: Lisinopril 10 MG TAB PO SCH (09:22)
[2022-01-23] MEDS: hydrALAZINE 25 MG TAB PO SCH (09:22)
[2022-01-23] MEDS: Carvedilol 25 MG TAB PO SCH (09:23)
[2022-01-23] MEDS: Enoxaparin Sodium 30 MG/0.3 ML SYRINGE SC SCH (09:25)
[2022-01-23 10:06] LABS: #Eosinphils 0.1 thou/uL (0.0-0.7); #Lymphocytes 1.3 thou/uL (1.20-3.40); #Monocytes 0.7 thou/uL (0.11-0.59); %Basophils 0.5 % (0.0-1.0); %Eosinophils 1.2 % (0.0-10.0); %Lymphocytes 16.1 % (21.0-51.0); %Monocytes 8.9 % (0.0-10.0); %Neutrophils 73.2 % (42.0-75.0); Mean Corpuscular HGB CONC 30.3 g/dL (32.0-36.0); Mean Platelet Volume 8.4 fL (7.4-10.4); Platelet Count 256 thou/uL (130-400); RBC Distribution Width 16.7 % (11.5-14.5); Red Blood Cell (RBC) Count 4.69 mill/uL (4.20-5.40); White Blood Cell (WBC) Count 8.2 thou/uL (4.8-10.8)
[2022-01-23 10:19] LABS: Anion Gap 26 mmol/L (10-20); BUN (Urea Nitrogen) 36 mg/dL (9.8-20.1); Calc. Creatinine Clearance 7 mL/min (70-130); Calcium 9.2 mg/dL (7.8-10.44); Carbon Dioxide 16 mmol/L (23-31); Chloride 97 mmol/L (98-107); Estimated GFR 9; Glucose 172 mg/dL (83-110); Potassium 4.4 mmol/L (3.5-5.1); Sodium 135 mmol/L (136-145)
[2022-01-23 15:58] VITALS: TEMP 97.2
[2022-01-23] MEDS: cefTRIAXone\\ROCEPHIN 1 GM in Sodium Chloride 0.9% 100 ML IVPB SCH (16:06)
== END 2022-01-23 17:56 | DRG 177 ==
LOC: ERS 08:47 → ERHOLD 11:01 → IMCU/EMU 15:41
PROVIDERS: ADMIT Hospitalist; ATTEND Hospitalist
PROC: 8E0ZXY6 Isolation (ICD-10-PCS; 2022-01-21)
PROC: 5A1D70Z Performance of Urinary Filtration, Intermittent, Less than 6 Hours Per Day (ICD-10-PCS; principal; 2022-01-22)
DX: U07.1 COVID-19 (principal); N18.6 End stage renal disease; G93.41 Metabolic encephalopathy; J12.82 Pneumonia due to coronavirus disease 2019; N30.00 Acute cystitis without hematuria; I13.2 Hypertensive heart and chronic kidney disease with heart failure and with stage 5 chronic kidney disease, or end stage renal disease; Z20.822 Contact with and (suspected) exposure to COVID-19; I50.9 Heart failure, unspecified; E78.00 Pure hypercholesterolemia, unspecified; I25.10 Atherosclerotic heart disease of native coronary artery without angina pectoris; E11.22 Type 2 diabetes mellitus with diabetic chronic kidney disease; D63.1 Anemia in chronic kidney disease; Z96.642 Presence of left artificial hip joint; Z99.2 Dependence on renal dialysis; Z90.49 Acquired absence of other specified parts of digestive tract; Z90.710 Acquired absence of both cervix and uterus; Z98.890 Other specified postprocedural states; Z79.899 Other long term (current) drug therapy; Z79.4 Long term (current) use of insulin
CPT/HCPCS: 36415; 36416; 51701; 70450; 70551; 71045; 80048; 80053; 80061; 81003; 81015; 83605; 85025; 86780; 87040; 87086; 90935; 93005; 93306; 96365; 96366; G0257; J0696; J1650; J3490

== ENCOUNTER 2022-02-03 16:39 | Inpatient (IN) | payer OTHER ==
[~2022-02-03 16:39] MED LIST changes: -Heparin 1,000 UNITS/ML VIAL ONE; -Iopamidol 300 61% 100 ML VIAL FS ONE; +Iopamidol-370 76% 500 ML 1 ML ONE
[2022-02-03] MEDS ORDERED: Cefepime 2 GM VIAL ONE (17:21)
[2022-02-03] MEDS ORDERED: Vancomycin 1 GM/200 ML BAG ONE (17:21)
[2022-02-03 17:34] LABS: Hemoglobin 14.6 g/dL (12.0-16.0); Mean Corpuscular HGB CONC 30.8 g/dL (32.0-36.0); Mean Corpuscular Hemoglobin 31.8 pg (27.0-31.0); Mean Platelet Volume 8.4 fL (7.4-10.4); Platelet Count 270 thou/uL (130-400); RBC Distribution Width 15.9 % (11.5-14.5); Red Blood Cell (RBC) Count 4.58 mill/uL (4.20-5.40); White Blood Cell (WBC) Count 16.1 thou/uL (4.8-10.8)
[2022-02-03 18:02] LABS: Band 4 % (5-11); Lymphocytes 9 % (21-51); MDiff Complete? YES; Macrocytosis SLIGHT = 6-15 cells (100X) (0-5/hpf); Monocytes 8 % (0-10); Neutrophil 79 % (42-75); Platelet Morphology Comment Appears Adequate
[2022-02-03 18:03] LABS: ALT (SGPT) Less than 7 U/L (8-55); AST (SGOT) 9 U/L (5-34); Albumin 2.9 g/dL (3.4-4.8); Alkaline Phosphatase 111 U/L (40-110); Anion Gap 22 mmol/L (10-20); BUN (Urea Nitrogen) 54 mg/dL (9.8-20.1); Bilirubin, Total 0.5 mg/dL (0.2-1.2); Calc. Creatinine Clearance 0 mL/min (70-130); Calcium 9.9 mg/dL (7.8-10.44); Carbon Dioxide 24 mmol/L (23-31); Chloride 96 mmol/L (98-107); Estimated GFR 6; Globulin 4.1 g/dL (2.4-3.5); Glucose 247 mg/dL (83-110); Potassium 4.1 mmol/L (3.5-5.1); Sodium 138 mmol/L (136-145)
[2022-02-03 18:22] LABS: Clarity Cloudy (Clear); Glucose, Urine (Dipstick) Unable to Interpret mg/dL (Negative); Ketone, Urine Unable to Interpret mg/dL (Negative); Leukocyte Unable to Interpret (Negative); Nitrite Unable to Interpret (Negative); Protein, Urine (Dipstick) Unable to Interpret mg/dL (Neg-Trace); Specific Gravity, Urine 1.018 (1.002-1.036)
[2022-02-03 18:23] LABS: Bilirubin Unable to Interpret (Negative); Blood, Urine Unable to Interpret (Negative); Urobilinogen UNABLE TO INTERPRET mg/dL (Less than 2)
[2022-02-03 18:24] LABS: Bacteria/HPF 4+ HPF (None Seen); Squamous Epithelial 0-3 HPF (0-3); WBC/HPF Greater Than 50 HPF (0-3); Yeast-Budding Rare HPF (None Seen)
[2022-02-03] MEDS ORDERED: Ondansetron PF 4 MG/2 ML Vial ONE (21:18)
[2022-02-04 01:32] LABS: SARS-CoV-2 NAA Rapid Test DETECTED (NotDetected)
[2022-02-04 02:19] VITALS: BMI 21.5
[2022-02-04] MEDS ORDERED: Piperacillin/Tazobactam 3.375 GM in Sodium Chloride 0.9% 100 ML IVPB SCH ×2 (08:00→12:00)
[2022-02-04] MEDS ORDERED: traMADol HCl 50 MG TAB PO PRN (08:46)
[2022-02-04] MEDS ORDERED: Docusate 100 MG CAP PO PRN (08:46)
[2022-02-04] MEDS ORDERED: Ibuprofen 200 MG TAB PO SCH (09:00)
[2022-02-04] MEDS ORDERED: Gabapentin 300 MG CAP PO SCH (09:00)
[2022-02-04] MEDS ORDERED: Lisinopril 10 MG TAB PO SCH (09:00)
[2022-02-04] MEDS: Sodium Chloride 0.9% 1,000 ML IV SCH (09:24)
[2022-02-04 09:25] LABS: HBSAB Concentration Less than 8.00 mIU/mL; HBSAg Index 0.29 S/CO (0-0.99); Hep B Surf AB Non-Reactive (NonReactive); Hep B Surf Ag Non-Reactive S/CO (NonReactive)
[2022-02-04] MEDS: Polyethylene Glycol 3350 17 GM Packet PO SCH (09:37)
[2022-02-04] MEDS: Lisinopril 10 MG TAB PO SCH (09:41)
[2022-02-04] MEDS: Carvedilol 25 MG TAB PO SCH ×3 (09:41→21:33)
[2022-02-04] MEDS: Sevelamer Carbonate 800 MG TAB PO SCH ×2 (12:03→18:03)
[2022-02-04] MEDS ORDERED: Piperacillin/Tazobactam 2.25 GM in Sodium Chloride 0.9% 100 ML IVPB SCH (14:00)
[2022-02-04] MEDS ORDERED: Vancomycin Sliding Scale 1 EACH IVPB PRN (15:27)
[2022-02-04] MEDS ORDERED: Vancomycin 1 GM in Premix Bag 1 BAG IVPB SCH (17:00)
[2022-02-04 17:09] LABS: Chlamydia by PCR Not Detected (NotDetected); GC by PCR Not Detected (NotDetected)
[2022-02-04] MEDS ORDERED: Dextrose 50% Abboject 50 ML SYRINGE SLOW IVP PRN (17:26)
[2022-02-04] MEDS ORDERED: Dextrose 5% in Water 1,000 ML IV PRN (17:26)
[2022-02-04] MEDS: Sevelamer 2.4 GM PACKET PO SCH (17:48)
[2022-02-04] MEDS: Insulin Glargine 30 UNITS/0.3 ML VIAL SC SCH (21:29)
[2022-02-04] MEDS: HumaLOG 300 UNITS/3 ML VIAL SC PRN (21:40)
[2022-02-05] MEDS: Sodium Chloride 0.9% 1,000 ML IV SCH (03:41)
[2022-02-05 07:19] LABS: Anion Gap 24 mmol/L (10-20); BUN (Urea Nitrogen) 27 mg/dL (9.8-20.1); Calc. Creatinine Clearance 8 mL/min (70-130); Calcium 9.4 mg/dL (7.8-10.44); Carbon Dioxide 16 mmol/L (23-31); Chloride 100 mmol/L (98-107); Estimated GFR 10; Glucose 142 mg/dL (83-110); Potassium 4.6 mmol/L (3.5-5.1); Sodium 135 mmol/L (136-145)
[2022-02-05 07:53] LABS: Hemoglobin 14.3 g/dL (12.0-16.0); Mean Corpuscular HGB CONC 30.2 g/dL (32.0-36.0); Mean Corpuscular Hemoglobin 30.8 pg (27.0-31.0); Platelet Count 196 thou/uL (130-400); RBC Distribution Width 16.2 % (11.5-14.5); Red Blood Cell (RBC) Count 4.64 mill/uL (4.20-5.40); White Blood Cell (WBC) Count 16.1 thou/uL (4.8-10.8)
[2022-02-05 09:00] LABS: #Eosinphils 0.2 thou/uL (0.0-0.7); #Lymphocytes 1.2 thou/uL (1.20-3.40); #Neutrophils 12.6 thou/uL (1.40-6.50); %Basophils 0.3 % (0.0-1.0); %Eosinophils 1.4 % (0.0-10.0); %Lymphocytes 7.2 % (21.0-51.0); %Monocytes 12.6 % (0.0-10.0); %Neutrophils 78.5 % (42.0-75.0); Band 12 % (5-11); Lymphocytes 17 % (21-51); MDiff Complete? YES; Macrocytosis SLIGHT = 6-15 cells (100X) (0-5/hpf); Monocytes 8 % (0-10); Myelocyte 1 % (0-0); Neutrophil 62 % (42-75); Platelet Morphology Comment Appears Adequate; Polychromasia SLIGHT = 2-3 cells (100X) (0-2/hpf)
[2022-02-05] MEDS: Insulin Glargine 30 UNITS/0.3 ML VIAL SC SCH ×2 (09:00→21:14)
[2022-02-05] MEDS: Carvedilol 25 MG TAB PO SCH ×2 (09:02→21:26)
[2022-02-05] MEDS: Ferrous Sulfate 325 MG TAB PO SCH (09:02)
[2022-02-05] MEDS: Sevelamer 2.4 GM PACKET PO SCH ×3 (09:02→16:57)
[2022-02-05] MEDS: Polyethylene Glycol 3350 17 GM Packet PO SCH (09:03)
[2022-02-05] MEDS: Gabapentin 300 MG CAP PO SCH (09:03)
[2022-02-05] MEDS: Lisinopril 10 MG TAB PO SCH (09:03)
[2022-02-05] MEDS: hydrALAZINE 20 MG/ML VIAL SLOW IVP PRN (16:13)
[2022-02-05] MEDS ORDERED: Dextrose 5 %-0.45 % NaCl 1,000 ML IV SCH (21:00)
[2022-02-06 05:24] LABS: Anion Gap 16 mmol/L (10-20); BUN (Urea Nitrogen) 31 mg/dL (9.8-20.1); Calc. Creatinine Clearance 8 mL/min (70-130); Calcium 8.9 mg/dL (7.8-10.44); Carbon Dioxide 21 mmol/L (23-31); Chloride 103 mmol/L (98-107); Estimated GFR 9; Glucose 62 mg/dL (83-110); Potassium 3.8 mmol/L (3.5-5.1); Sodium 136 mmol/L (136-145)
[2022-02-06 07:10] LABS: #Basophils 0.1 thou/uL (0.0-0.2); #Eosinphils 0.2 thou/uL (0.0-0.7); #Lymphocytes 1.3 thou/uL (1.20-3.40); #Monocytes 1.6 thou/uL (0.11-0.59); #Neutrophils 8.1 thou/uL (1.40-6.50); %Basophils 0.5 % (0.0-1.0); %Eosinophils 1.5 % (0.0-10.0); %Lymphocytes 11.2 % (21.0-51.0); %Monocytes 14.1 % (0.0-10.0); %Neutrophils 72.7 % (42.0-75.0); Hemoglobin 13.9 g/dL (12.0-16.0); Mean Corpuscular HGB CONC 30.1 g/dL (32.0-36.0); Mean Corpuscular Hemoglobin 32.1 pg (27.0-31.0); Mean Platelet Volume 8.4 fL (7.4-10.4); Platelet Count 204 thou/uL (130-400); RBC Distribution Width 16.2 % (11.5-14.5); Red Blood Cell (RBC) Count 4.34 mill/uL (4.20-5.40); White Blood Cell (WBC) Count 11.2 thou/uL (4.8-10.8)
[2022-02-06 07:11] LABS: Anisocytosis SLIGHT = 6-15 cells (100X) (0-5/hpf); MDiff Complete? YES; Macrocytosis SLIGHT = 6-15 cells (100X) (0-5/hpf)
[2022-02-06 07:59] LABS: Vancomycin, Random 28.4 ug/mL (See Comment)
[2022-02-06] MEDS: Carvedilol 25 MG TAB PO SCH ×2 (09:47→19:48)
[2022-02-06] MEDS: Sevelamer 2.4 GM PACKET PO SCH ×3 (09:47→17:23)
[2022-02-06] MEDS: Ferrous Sulfate 325 MG TAB PO SCH (09:47)
[2022-02-06] MEDS: Lisinopril 10 MG TAB PO SCH (09:48)
[2022-02-06] MEDS: Gabapentin 300 MG CAP PO SCH (09:48)
[2022-02-06] MEDS: Polyethylene Glycol 3350 17 GM Packet PO SCH (09:49)
[2022-02-06] MEDS: Dextrose 5 % And 0.9 % NaCl 1,000 ML IV SCH (14:25)
[2022-02-06] MEDS: hydrALAZINE 20 MG/ML VIAL SLOW IVP PRN (17:25)
[2022-02-06] MEDS: HumaLOG 300 UNITS/3 ML VIAL SC PRN (23:15)
[2022-02-07] MEDS: Dextrose 5 % And 0.9 % NaCl 1,000 ML IV SCH ×2 (04:24→06:20)
[2022-02-07 05:36] LABS: Anion Gap 17 mmol/L (10-20); BUN (Urea Nitrogen) 22 mg/dL (9.8-20.1); Calc. Creatinine Clearance 11 mL/min (70-130); Calcium 8.6 mg/dL (7.8-10.44); Carbon Dioxide 22 mmol/L (23-31); Chloride 102 mmol/L (98-107); Estimated GFR 14; Glucose 185 mg/dL (83-110); Potassium 3.7 mmol/L (3.5-5.1); Sodium 137 mmol/L (136-145)
[2022-02-07 05:42] LABS: Band 5 % (5-11); Lymphocytes 12 % (21-51); MDiff Complete? YES; Macrocytosis SLIGHT = 6-15 cells (100X) (0-5/hpf); Mean Corpuscular HGB CONC 30.9 g/dL (32.0-36.0); Mean Corpuscular Hemoglobin 33.8 pg (27.0-31.0); Mean Platelet Volume 9.5 fL (7.4-10.4); Monocytes 14 % (0-10); Neutrophil 69 % (42-75); Platelet Count 126 thou/uL (130-400); Red Blood Cell (RBC) Count 4.15 mill/uL (4.20-5.40); White Blood Cell (WBC) Count 10.8 thou/uL (4.8-10.8)
[2022-02-07] MEDS: HumaLOG 300 UNITS/3 ML VIAL SC PRN ×3 (06:20→17:38)
[2022-02-07] MEDS: Carvedilol 25 MG TAB PO SCH ×2 (09:15→22:31)
[2022-02-07] MEDS: Lisinopril 10 MG TAB PO SCH (09:15)
[2022-02-07] MEDS: Ferrous Sulfate 325 MG TAB PO SCH (09:15)
[2022-02-07] MEDS: Aspirin Chewable 81 MG TAB PO SCH (09:15)
[2022-02-07] MEDS: Sevelamer 2.4 GM PACKET PO SCH ×3 (09:15→16:31)
[2022-02-07] MEDS: Polyethylene Glycol 3350 17 GM Packet PO SCH (09:16)
[2022-02-07] MEDS: Gabapentin 300 MG CAP PO SCH (09:16)
[2022-02-07] MEDS: hydrALAZINE 20 MG/ML VIAL SLOW IVP PRN (09:17)
[2022-02-08] MEDS: hydrALAZINE 20 MG/ML VIAL SLOW IVP PRN ×3 (00:54→21:43)
[2022-02-08] MEDS: Dextrose 5 % And 0.9 % NaCl 1,000 ML IV SCH (05:36)
[2022-02-08] MEDS: Gabapentin 300 MG CAP PO SCH ×2 (09:56→10:26)
[2022-02-08] MEDS: Polyethylene Glycol 3350 17 GM Packet PO SCH ×2 (09:56→10:26)
[2022-02-08] MEDS: Carvedilol 25 MG TAB PO SCH ×3 (09:57→21:39)
[2022-02-08] MEDS: Lisinopril 10 MG TAB PO SCH ×2 (09:57→10:24)
[2022-02-08] MEDS: Ferrous Sulfate 325 MG TAB PO SCH ×2 (09:57→10:26)
[2022-02-08] MEDS: Sevelamer 2.4 GM PACKET PO SCH ×3 (09:57→16:32)
[2022-02-08] MEDS: Aspirin Chewable 81 MG TAB PO SCH ×2 (09:57→10:26)
[2022-02-08] MEDS: Aluminum & Magnesium Hydroxide 60 ML, diphenhydrAMINE 150 MG, Lidocaine 2% Viscous Solu... SSW SCH ×3 (11:05→23:08)
[2022-02-08] MEDS: cloNIDine 0.2mg/24 Hour PATCH TD SCH (11:30)
[2022-02-08] MEDS: HumaLOG 300 UNITS/3 ML VIAL SC PRN (11:30)
[2022-02-08] MEDS: D5W-AA 4.25% with LYTES 1,000 ML IV SCH (11:31)
[2022-02-08] MEDS ORDERED: Ondansetron PF 4 MG/2 ML Vial IVP PRN (14:38)
[2022-02-09] MEDS: hydrALAZINE 20 MG/ML VIAL SLOW IVP PRN (05:07)
[2022-02-09] MEDS: HumaLOG 300 UNITS/3 ML VIAL SC PRN ×2 (05:09→11:48)
[2022-02-09 07:51] LABS: Vancomycin, Random 19.9 ug/mL (See Comment)
[2022-02-09 07:53] LABS: Anion Gap 15 mmol/L (10-20); BUN (Urea Nitrogen) 41 mg/dL (9.8-20.1); Calc. Creatinine Clearance 8 mL/min (70-130); Calcium 8.8 mg/dL (7.8-10.44); Carbon Dioxide 23 mmol/L (23-31); Chloride 101 mmol/L (98-107); Estimated GFR 9; Glucose 332 mg/dL (83-110); Potassium 3.3 mmol/L (3.5-5.1); Sodium 136 mmol/L (136-145)
[2022-02-09] MEDS: Polyethylene Glycol 3350 17 GM Packet PO SCH (08:21)
[2022-02-09] MEDS: Gabapentin 300 MG CAP PO SCH (08:22)
[2022-02-09] MEDS: Aspirin Chewable 81 MG TAB PO SCH (08:22)
[2022-02-09] MEDS: Lisinopril 10 MG TAB PO SCH (08:23)
[2022-02-09] MEDS: Carvedilol 25 MG TAB PO SCH ×2 (08:23→22:23)
[2022-02-09] MEDS: Ferrous Sulfate 325 MG TAB PO SCH (08:23)
[2022-02-09] MEDS: D5W-AA 4.25% with LYTES 1,000 ML IV SCH (08:40)
[2022-02-09] MEDS: Aluminum & Magnesium Hydroxide 60 ML, diphenhydrAMINE 150 MG, Lidocaine 2% Viscous Solu... SSW SCH ×3 (08:40→17:18)
[2022-02-09] MEDS: Sevelamer 2.4 GM PACKET PO SCH ×4 (11:17→17:16)
[2022-02-09] MEDS: Scopolamine 1.5 mg/72 hour Patch TD SCH (11:42)
[2022-02-09] MEDS ORDERED: Vancomycin HCl 250 MG in Sodium Chloride 0.9% 100 ML IVPB SCH (17:00)
[2022-02-10] MEDS: Aluminum & Magnesium Hydroxide 60 ML, diphenhydrAMINE 150 MG, Lidocaine 2% Viscous Solu... SSW SCH ×5 (00:19→19:55)
[2022-02-10] MEDS: HumaLOG 300 UNITS/3 ML VIAL SC PRN ×3 (00:24→11:49)
[2022-02-10] MEDS: D5W-AA 4.25% with LYTES 1,000 ML IV SCH (08:01)
[2022-02-10] MEDS: Polyethylene Glycol 3350 17 GM Packet PO SCH (09:01)
[2022-02-10] MEDS: Sevelamer 2.4 GM PACKET PO SCH ×3 (09:02→16:24)
[2022-02-10] MEDS: Aspirin Chewable 81 MG TAB PO SCH (09:03)
[2022-02-10] MEDS: Ferrous Sulfate 325 MG TAB PO SCH (09:03)
[2022-02-10] MEDS: Carvedilol 25 MG TAB PO SCH ×2 (09:03→19:54)
[2022-02-10] MEDS: Gabapentin 300 MG CAP PO SCH (09:03)
[2022-02-10] MEDS: Lisinopril 10 MG TAB PO SCH (09:03)
[2022-02-10] MEDS: Mirtazapine 15 MG TAB PO SCH (19:54)
[2022-02-11] MEDS: D5W-AA 4.25% with LYTES 1,000 ML IV SCH (07:10)
[2022-02-11 08:10] LABS: #Eosinphils 0.1 thou/uL (0.0-0.7); #Lymphocytes 1.1 thou/uL (1.20-3.40); #Monocytes 0.9 thou/uL (0.11-0.59); #Neutrophils 10.4 thou/uL (1.40-6.50); %Basophils 0.1 % (0.0-1.0); %Lymphocytes 8.6 % (21.0-51.0); %Monocytes 7.1 % (0.0-10.0); %Neutrophils 83.3 % (42.0-75.0); Hemoglobin 13.1 g/dL (12.0-16.0); Mean Corpuscular HGB CONC 30.9 g/dL (32.0-36.0); Mean Corpuscular Hemoglobin 32.1 pg (27.0-31.0); Mean Platelet Volume 8.7 fL (7.4-10.4); Platelet Count 180 thou/uL (130-400); RBC Distribution Width 15.7 % (11.5-14.5); Red Blood Cell (RBC) Count 4.08 mill/uL (4.20-5.40); White Blood Cell (WBC) Count 12.5 thou/uL (4.8-10.8)
[2022-02-11 08:29] LABS: Vancomycin, Random 17.6 ug/mL (See Comment)
[2022-02-11 08:30] LABS: Anion Gap 17 mmol/L (10-20); BUN (Urea Nitrogen) 46 mg/dL (9.8-20.1); Calc. Creatinine Clearance 10 mL/min (70-130); Calcium 8.4 mg/dL (7.8-10.44); Carbon Dioxide 21 mmol/L (23-31); Chloride 97 mmol/L (98-107); Estimated GFR 13; Glucose 378 mg/dL (83-110); Potassium 4.5 mmol/L (3.5-5.1); Sodium 130 mmol/L (136-145)
[2022-02-11] MEDS ORDERED: Vancomycin Hemodialysis Sliding Scale FS SCH (08:45)
[2022-02-11] MEDS: Aspirin Chewable 81 MG TAB PO SCH (10:28)
[2022-02-11] MEDS: Sevelamer 2.4 GM PACKET PO SCH ×3 (10:28→17:21)
[2022-02-11] MEDS: Aluminum & Magnesium Hydroxide 60 ML, diphenhydrAMINE 150 MG, Lidocaine 2% Viscous Solu... SSW SCH ×4 (10:28→21:51)
[2022-02-11] MEDS: Carvedilol 25 MG TAB PO SCH ×2 (10:28→21:53)
[2022-02-11] MEDS: Ferrous Sulfate 325 MG TAB PO SCH (10:28)
[2022-02-11] MEDS: Lisinopril 10 MG TAB PO SCH (10:29)
[2022-02-11] MEDS: Polyethylene Glycol 3350 17 GM Packet PO SCH (10:29)
[2022-02-11] MEDS: Gabapentin 300 MG CAP PO SCH (10:29)
[2022-02-11] MEDS ORDERED: Vancomycin HCl 250 MG in Sodium Chloride 0.9% 100 ML IVPB SCH (17:00)
[2022-02-11] MEDS: Mirtazapine 15 MG TAB PO SCH (21:53)
[2022-02-11] MEDS ORDERED: HumaLOG 300 UNITS/3 ML VIAL SC PRN (22:08)
[2022-02-12] MEDS: D5W-AA 4.25% with LYTES 1,000 ML IV SCH ×2 (00:15→06:05)
[2022-02-12] MEDS: Carvedilol 25 MG TAB PO SCH ×3 (00:15→20:09)
[2022-02-12] MEDS: Mirtazapine 15 MG TAB PO SCH ×2 (00:17→20:09)
[2022-02-12] MEDS: HumaLOG 300 UNITS/3 ML VIAL SC PRN ×3 (05:37→16:43)
[2022-02-12] MEDS: Aluminum & Magnesium Hydroxide 60 ML, diphenhydrAMINE 150 MG, Lidocaine 2% Viscous Solu... SSW SCH ×4 (06:47→20:09)
[2022-02-12] MEDS ORDERED: cloNIDine 0.1mg/24 Hour PATCH TD SCH (09:00)
[2022-02-12] MEDS: Aspirin Chewable 81 MG TAB PO SCH (09:02)
[2022-02-12] MEDS: Sevelamer 2.4 GM PACKET PO SCH ×3 (09:02→16:57)
[2022-02-12] MEDS: Gabapentin 300 MG CAP PO SCH (09:02)
[2022-02-12] MEDS: Ferrous Sulfate 325 MG TAB PO SCH (09:02)
[2022-02-12] MEDS: Polyethylene Glycol 3350 17 GM Packet PO SCH (09:03)
[2022-02-12] MEDS: Lisinopril 10 MG TAB PO SCH (09:03)
[2022-02-12] MEDS: Scopolamine 1.5 mg/72 hour Patch TD SCH (09:06)
[2022-02-12] MEDS: hydrALAZINE 20 MG/ML VIAL SLOW IVP PRN (11:17)
[2022-02-13] MEDS: D5W-AA 4.25% with LYTES 1,000 ML IV SCH ×3 (02:17→22:10)
[2022-02-13 06:16] LABS: ALT (SGPT) Less than 7 U/L (8-55); AST (SGOT) 9 U/L (5-34); Albumin 2.3 g/dL (3.4-4.8); Alkaline Phosphatase 80 U/L (40-110); Anion Gap 15 mmol/L (10-20); BUN (Urea Nitrogen) 45 mg/dL (9.8-20.1); Bilirubin, Total 0.6 mg/dL (0.2-1.2); Calc. Creatinine Clearance 11 mL/min (70-130); Calcium 8.2 mg/dL (7.8-10.44); Carbon Dioxide 25 mmol/L (23-31); Chloride 98 mmol/L (98-107); Estimated GFR 15; Globulin 2.7 g/dL (2.4-3.5); Glucose 242 mg/dL (83-110); Potassium 4.4 mmol/L (3.5-5.1); Sodium 134 mmol/L (136-145)
[2022-02-13] MEDS: Aluminum & Magnesium Hydroxide 60 ML, diphenhydrAMINE 150 MG, Lidocaine 2% Viscous Solu... SSW SCH ×4 (06:47→22:15)
[2022-02-13] MEDS: Gabapentin 300 MG CAP PO SCH (08:41)
[2022-02-13] MEDS: Sevelamer 2.4 GM PACKET PO SCH ×3 (08:41→18:35)
[2022-02-13] MEDS: Ferrous Sulfate 325 MG TAB PO SCH (08:41)
[2022-02-13] MEDS: Aspirin Chewable 81 MG TAB PO SCH (08:41)
[2022-02-13] MEDS: Carvedilol 25 MG TAB PO SCH ×2 (08:41→22:15)
[2022-02-13] MEDS: Lisinopril 10 MG TAB PO SCH (08:41)
[2022-02-13] MEDS: Polyethylene Glycol 3350 17 GM Packet PO SCH (08:42)
[2022-02-13] MEDS: HumaLOG 300 UNITS/3 ML VIAL SC PRN (12:44)
[2022-02-13] MEDS ORDERED: Vancomycin HCl 500 MG in Sodium Chloride 0.9% 100 ML IVPB SCH (17:00)
[2022-02-13] MEDS: Mirtazapine 15 MG TAB PO SCH (22:15)
[2022-02-14] MEDS: HumaLOG 300 UNITS/3 ML VIAL SC PRN ×3 (05:34→16:52)
[2022-02-14] MEDS: Aluminum & Magnesium Hydroxide 60 ML, diphenhydrAMINE 150 MG, Lidocaine 2% Viscous Solu... SSW SCH ×4 (06:56→20:41)
[2022-02-14] MEDS: Aspirin Chewable 81 MG TAB PO SCH (12:21)
[2022-02-14] MEDS: Ferrous Sulfate 325 MG TAB PO SCH (12:21)
[2022-02-14] MEDS: Sevelamer 2.4 GM PACKET PO SCH ×2 (12:21→18:04)
[2022-02-14] MEDS: Carvedilol 25 MG TAB PO SCH ×2 (12:22→20:41)
[2022-02-14] MEDS: Lisinopril 10 MG TAB PO SCH (12:23)
[2022-02-14] MEDS: Polyethylene Glycol 3350 17 GM Packet PO SCH (12:23)
[2022-02-14] MEDS: Gabapentin 300 MG CAP PO SCH (12:23)
[2022-02-14] MEDS: D5W-AA 4.25% with LYTES 1,000 ML IV SCH (15:52)
[2022-02-14] MEDS: Mirtazapine 15 MG TAB PO SCH (20:41)
[2022-02-15] MEDS: Aluminum & Magnesium Hydroxide 60 ML, diphenhydrAMINE 150 MG, Lidocaine 2% Viscous Solu... SSW SCH ×5 (06:50→21:17)
[2022-02-15] MEDS: D5W-AA 4.25% with LYTES 1,000 ML IV SCH (08:46)
[2022-02-15] MEDS: cloNIDine 0.2mg/24 Hour PATCH TD SCH (10:55)
[2022-02-15] MEDS: Sevelamer 2.4 GM PACKET PO SCH ×3 (11:25→17:17)
[2022-02-15] MEDS: Carvedilol 25 MG TAB PO SCH ×2 (11:25→19:46)
[2022-02-15] MEDS: Aspirin Chewable 81 MG TAB PO SCH (11:25)
[2022-02-15] MEDS: Gabapentin 300 MG CAP PO SCH (11:25)
[2022-02-15] MEDS: Lisinopril 10 MG TAB PO SCH (11:25)
[2022-02-15] MEDS: Ferrous Sulfate 325 MG TAB PO SCH (11:25)
[2022-02-15] MEDS: Polyethylene Glycol 3350 17 GM Packet PO SCH (11:26)
[2022-02-15] MEDS: HumaLOG 300 UNITS/3 ML VIAL SC PRN ×2 (12:45→17:24)
[2022-02-15] MEDS: Scopolamine 1.5 mg/72 hour Patch TD SCH (17:14)
[2022-02-15] MEDS: Mirtazapine 15 MG TAB PO SCH (19:46)
[2022-02-16] MEDS: D5W-AA 4.25% with LYTES 1,000 ML IV SCH (01:51)
[2022-02-16] MEDS: HumaLOG 300 UNITS/3 ML VIAL SC PRN ×2 (05:37→17:07)
[2022-02-16] MEDS: Aluminum & Magnesium Hydroxide 60 ML, diphenhydrAMINE 150 MG, Lidocaine 2% Viscous Solu... SSW SCH ×4 (07:26→22:30)
[2022-02-16] MEDS: Lisinopril 10 MG TAB PO SCH (08:51)
[2022-02-16] MEDS: Gabapentin 300 MG CAP PO SCH (08:51)
[2022-02-16] MEDS: Ferrous Sulfate 325 MG TAB PO SCH (08:51)
[2022-02-16] MEDS: Aspirin Chewable 81 MG TAB PO SCH (08:51)
[2022-02-16] MEDS: Carvedilol 25 MG TAB PO SCH ×2 (08:51→22:30)
[2022-02-16] MEDS: Polyethylene Glycol 3350 17 GM Packet PO SCH (08:51)
[2022-02-16] MEDS: Sevelamer 2.4 GM PACKET PO SCH ×3 (08:51→16:42)
[2022-02-16 09:53] LABS: Vancomycin, Random 10.5 ug/mL (See Comment)
[2022-02-16] MEDS ORDERED: Vancomycin HCl 500 MG in Sodium Chloride 0.9% 100 ML IVPB SCH (17:00)
[2022-02-16] MEDS: Mirtazapine 15 MG TAB PO SCH (22:30)
[2022-02-17] MEDS: D5W-AA 4.25% with LYTES 1,000 ML IV SCH ×2 (00:36→15:49)
[2022-02-17] MEDS: HumaLOG 300 UNITS/3 ML VIAL SC PRN (06:45)
[2022-02-17] MEDS: Aluminum & Magnesium Hydroxide 60 ML, diphenhydrAMINE 150 MG, Lidocaine 2% Viscous Solu... SSW SCH ×3 (06:49→17:04)
[2022-02-17] MEDS: Ferrous Sulfate 325 MG TAB PO SCH (10:28)
[2022-02-17] MEDS: Sevelamer 2.4 GM PACKET PO SCH ×3 (10:29→17:04)
[2022-02-17] MEDS: Lisinopril 10 MG TAB PO SCH (10:29)
[2022-02-17] MEDS: Polyethylene Glycol 3350 17 GM Packet PO SCH (10:29)
[2022-02-17] MEDS: Aspirin Chewable 81 MG TAB PO SCH (10:29)
[2022-02-17] MEDS: Gabapentin 300 MG CAP PO SCH (10:29)
[2022-02-17] MEDS: Carvedilol 25 MG TAB PO SCH (10:29)
[2022-02-17 16:59] VITALS: BP 125/50; TEMP 98.7
== END 2022-02-17 18:10 | disposition hospice, home (50) | DRG 871 ==
LOC: ERS 16:39 → ERHOLD 20:35 → SJJU 02-04 01:59
PROVIDERS: ADMIT Internal Medicine; ATTEND Internal Medicine
PROC: 3E03329 Introduction of Other Anti-infective into Peripheral Vein, Percutaneous Approach (ICD-10-PCS; principal; 2022-02-03)
PROC: 8E0ZXY6 Isolation (ICD-10-PCS; 2022-02-03)
PROC: 0CJS8ZZ Inspection of Larynx, Via Natural or Artificial Opening Endoscopic (ICD-10-PCS; 2022-02-04)
PROC: 5A1D70Z Performance of Urinary Filtration, Intermittent, Less than 6 Hours Per Day (ICD-10-PCS; 2022-02-04)
DX: A41.02 Sepsis due to Methicillin resistant Staphylococcus aureus (principal); Z51.5 Encounter for palliative care; Z66 Do not resuscitate; N18.6 End stage renal disease; U07.1 COVID-19; K65.8 Other peritonitis; E87.1 Hypo-osmolality and hyponatremia; I50.32 Chronic diastolic (congestive) heart failure; I13.2 Hypertensive heart and chronic kidney disease with heart failure and with stage 5 chronic kidney disease, or end stage renal disease; L03.211 Cellulitis of face; F05 Delirium due to known physiological condition; G93.40 Encephalopathy, unspecified; E44.0 Moderate protein-calorie malnutrition; N39.0 Urinary tract infection, site not specified; E87.6 Hypokalemia; E88.09 Other disorders of plasma-protein metabolism, not elsewhere classified; F03.90 Unspecified dementia, unspecified severity, without behavioral disturbance, psychotic disturbance, mood disturbance, and anxiety; I25.10 Atherosclerotic heart disease of native coronary artery without angina pectoris; E11.22 Type 2 diabetes mellitus with diabetic chronic kidney disease; D63.1 Anemia in chronic kidney disease; E78.5 Hyperlipidemia, unspecified; Z96.642 Presence of left artificial hip joint; K11.21 Acute sialoadenitis; I25.5 Ischemic cardiomyopathy; K11.7 Disturbances of salivary secretion; R62.7 Adult failure to thrive; Z68.21 Body mass index [BMI] 21.0-21.9, adult; Z99.2 Dependence on renal dialysis; Z87.440 Personal history of urinary (tract) infections; Z79.899 Other long term (current) drug therapy; Z86.73 Personal history of transient ischemic attack (TIA), and cerebral infarction without residual deficits; Z90.49 Acquired absence of other specified parts of digestive tract; Z90.710 Acquired absence of both cervix and uterus; Z98.890 Other specified postprocedural states
CPT/HCPCS: 36415; 36416; 51701; 70491; 71045; 74018; 80048; 80053; 80202; 81003; 81015; 83605; 83880; 85025; 86706; 87040; 87077; 87086; 87149; 87186; 87340; 87480; 87491; 87510; 87591; 87660; 90935; 96365; 96375; G0257; J0360; J0692; J1815; J2405; J2543; J3370; J3490; J7042; J7050; Q0163; Q9967; U0002